=== PATIENT | female | born 1955 | race Caucasian/White ===

== ENCOUNTER 2024-04-22 06:44 | Outpatient (CLI) | payer MEDICARE, SELFPAY ==
--- NOTE | ~2024-04-22 | CT_ITS ---
Non-contrast CT scan of the Abdomen and Pelvis Clinical indication: Umbilical hernia Technique: 2.5 mm axial scans were obtained through the abdomen and pelvis without intravenous or or al contrast. Dose reduction technique was used on this scan by utilizing automated exposure control a nd iterative reconstruction technique. The dose-length product (DLP) was 824.38 mGy-cm. Findings: Images through the lung bases reveal no abnormalities. There is no evidence of renal or ureteral calculi. The kidneys and the ureters are nondilated. The liver, spleen, pancreas, gallbladder, and adrenals appear normal. There are atherosclerotic calci fications of the aorta. There is no evidence of bowel obstruction. There is evidence of prior bariatric surgery. Images through the pelvis were performed. There is no evidence of ascites or lymphadenopathy. Urinary bladder unremarkable. No pelvic mass evident. Impression: No significant abnormality seen. No umbilical hernia identified. Reviewed, dictated and finalized at [facility]. Impression: No significant abnormality seen. No umbilical hernia identified.
== END 2024-04-22 06:45 | disposition home or self-care (01) ==
PROVIDERS: Visit Provider Surgery Plastic and Reconstructive Surgery
DX: K42.9 Umbilical hernia without obstruction or gangrene (principal)
CPT/HCPCS: 74176

== ENCOUNTER 2024-04-28 08:42 | Outpatient (CLI) | payer OTHER, SELFPAY ==
--- NOTE | 2024-04-28 08:49 | ECG_ITS ---
Test Date: 2024-04-28 09:08:41 Measurements Intervals [place] Rate: 50 P: -3 [place]: 148 QRS: -27 QRSD: 93 T: 5 QT: 421 QTc: 384 Interpretive Statements SINUS BRADYCARDIA VOLTAGE CRITERIA FOR LVH BORDERLINE T WAVE ABNORMALITY- ANT/INF LEADS BASELINE ARTIFACT- I, II, III, AVR, AVL BORDERLINE ECG No previous ECG available for comparison Electronically Signed On 04-28-2024 10:24:29 CDT by Arnulfo Hurtado D.O.
[2024-04-28 09:42] LABS: Hematocrit 42.3 % (37.0-47.0); Hemoglobin 13.3 g/dL (12.0-15.0)
[2024-04-28 09:52] LABS: Potassium 4.1 mmol/L (3.4-5.0)
[2024-04-28 10:22] LABS: Anion Gap 10 mmol/L (4-12); Blood Urea Nitrogen 13 mg/dL (7-17); Calcium 8.9 mg/dL (8.4-10.2); Carbon Dioxide 29 mmol/L (22-30); Chloride 95 mmol/L (98-107); Estimated Glomerular Filt Rate > 60; Glucose 133 mg/dL (65-110); Sodium 134 mmol/L (137-145)
== END 2024-04-28 08:43 | disposition home or self-care (01) ==
LOC: ANHSURGERY 08:46
PROVIDERS: Anesthesiology; Visit Provider Surgery Plastic and Reconstructive Surgery
DX: L57.4 Cutis laxa senilis (principal); E11.9 Type 2 diabetes mellitus without complications; Z01.818 Encounter for other preprocedural examination; R94.31 Abnormal electrocardiogram [ECG] [EKG]
CPT/HCPCS: 36415; 80048; 85014; 85018; 93005

== ENCOUNTER 2024-05-04 00:49 | Day surgery (SDC) | payer OTHER, SELFPAY ==
[2024-04-27 13:06] VITALS: BMI 29.0
--- NOTE | 2024-04-27 13:49 | PC.NURSE ---
Report to the Outpatient Waiting Room, entrance under the green pavilion located off [facility], at time _6:00AM_ on date _05/04/24_. Planned Procedure Time: _7:30AM_.? Time changes happen often and if your time is changed the preop area will call you the afternoon before. - You and your visitor will be asked to self-screen and do not enter if you have any COVID symptoms. Please call surgeon if you need to reschedule. - A mask is optional within the hospital at this time. Patients may have clear liquids (water, carbonated beverages, clear teas, apple juice) until 3 hours prior to surgery with a maximum of 20 ounces. - No food from midnight until time of surgery and no smoking. Take only the following medications with a SIP of water on the morning of surgery: DILTIAZEM & PAROXETINE DO NOT STOP ANY OF YOUR OTHER PRESCRIPTION MEDICATIONS PRIOR TO SURGERY EXCEPT THE FOLLOWING Medications to discontinue per physician ___HOLD ALL VITAMINS/SUPPLEMENTS 7 DAYS PRE-OP PER DR RAJAN- LAST DOSE --04/27/24. HOLD XERALTO PER DR RAJAN- PATIENT CALLING MD OFFICE TODAY TO CONFIRM DATE.____ Please no make-up, nail romanian, hairspray, perfume, deodorant, or body powder the day of surgery.? No jewelry (including any body piercings) or valuables the day of surgery, leave them at home.? Please take a shower or bath the night before, or the morning of, surgery with an antibacterial soap.? Wear comfortable, loose fitting clothing.? - Jewelry must be removed prior to entering the operating room.? Rings and piercings that are not removed may be cut off. - The hospital will not accept responsibility for valuables.? - Please leave all valuables, including medications, at home the day of surgery. If you are going home after surgery, a licensed regional company flatbed truck driver must drive you home.? - NO public transportation without another adult if you receive anesthesia. - We recommend that an adult stay with you for 24 hours following discharge. - We also recommend that you do not drive, make important decision, drink alcoholic beverages, or take any drugs that were not prescribed by your health care provider for at least 24 hours after your discharge time. Follow any additional instructions given to you from your surgeon. Telephone instructions given to PATIENT and asked if any additional questions and then verbalized understanding. Patient advised to call surgeon office or pre surgery nurse liaison [phone] if any additional questions.
[2024-05-04] VITALS (14 sets, daily range): BP systolic 141–161; BP diastolic 68–85; PULSE 60–89; RESP 14–20; TEMP 36.5–37.1; O2SAT 94–99
--- NOTE | ~2024-05-04 | CT_ITS ---
EXAMINATION: CT brain wo con DATE: 05/05/2024 18:13 INDICATION: dysarthria, ataxia RUE . TECHNIQUE: Computed tomography (CT) of the head was performed without intravenous contrast. The mA wa s adjusted according to patient size. Iterative reconstruction technique was employed. The dose-lengt h product was 908.00 mGy-cm. COMPARISON: None. FINDINGS: No acute intracranial hemorrhage or extra-axial fluid collection. No hydrocephalus, mass, or herniation. No acute ischemic infarct. Unremarkable dural venous sinus attenuation. No acute osseous abnormality. Left mastoid fluid, the remaining aerated spaces are clear. Mild atrophy. Old left basal ganglia lacunar infarct. Atherosclerotic intracranial calcification. IMPRESSION: No acute intracranial process. Reviewed, dictated and finalized at location K.
[2024-05-04] MEDS: LACTATED RINGERS 1,000 ML 30 ML IV CONT ×2 (07:00→15:40)
[2024-05-04 07:34] LABS: Urine Cotinine NEGATIVE
[2024-05-04 07:50] LABS: Glucose Point of Care 157 mg/dl (65-105)
--- NOTE | 2024-05-04 08:45 | WPDHPUPDATE1 ---
History and Physical Update Update Date/Time: 05/04/24 08:45 History and Physical has been reviewed, including an updated exam of the patient. There are NO changes in the patient's condition. Risks, benefits, and alternatives have been discussed and questions answered. Patient agrees to proceed with procedure.
--- NOTE | 2024-05-04 08:50 | W.PM.PROC2 ---
Procedure Note - Detailed Date of Procedure 05/04/24 Pre-op Diagnosis skin laxity Post-op Diagnosis Same Procedure Performed Lgwee-og-kcc abdominoplasty with belt lipectomy and suction lipectomy Surgeon Bridger Payton MD Anesthesia General Findings Tissue removed: 3167.1 grams Lipoaspirate: 4,000 Description of Procedure They are here today for the above procedures. Previously and again today the risks, benefits, alternatives were discussed in extensive detail. I wanted them to be very realistic about the risks involved as well as expectations. We discussed aftercare and what to monitor for. I was very upfront about the risks of wound breakdown leading to loss of skin, open wounds, and need for additional procedures with permanent abdominal deformity. We discussed DVT/PE risks and management. Made sure answered all of their questions to their satisfaction today and consent was obtained. They were marked in the preoperative holding area with their verification. The patient was taken to the operating room. Anesthesia was provided by anesthesiology. A Cruz catheter was started. Placed prone on the operating room table with care taken to protect from injury. Prepped and draped in a standard sterile fashion. A surgical time-out was taken. Stab incisions were made and tumescent solution was infiltrated. Once adequate time was allowed for hemostasis a 5mm basket and 4mm multi hole cannula were utilized to complete suction lipectomy based on S.A.F.E. technique in multiple planes and passes. Suction lipectomy continued to result based on pre-operative planning, intra-operative observation, and rolling pinch test which were in full agreement. A 10 blade was used to make the upper incision and dissection was continued inferior elevating what we necessary for closure. I placed patient in slight jackknife position and excised intervening tissue. This was closed with 3 point suture with 2-0 Vicryl followed 2-0 PDO strattafix, 3-0 stratafix ,running subcuticular 4-0 Monocryl, and tissue glue. Laterally dejan were placed for turning. Patient was then placed supine with care taken to protect from injury. I placed the patient in a flexed position to verify the upper and lower markings would reach. I then placed supine. A thorough abdominal examination was completed. Stab incisions were made and tumescent solution infiltrated. Stab incisions were made and tumescent solution was infiltrated. Once adequate time was allowed for hemostasis a 5mm basket and 4mm multi hole cannula were utilized to complete suction lipectomy based on S.A.F.E. technique in multiple planes and passes. Suction lipectomy continued to result based on pre-operative planning, intra-operative observation, and rolling pinch test which were in full agreement. A 10 blade was used to make the upper incision and vertical. I continued dissection down to the level of fascia. Elevated just what was necessary for repair of the diastasis. I then again flexed the bed to verify the upper skin flap would reach the lower markings without tension. Once verified I placed her supine once again and a 10 blade used to make the lower incision. I elevated up to level the umbilicus and left the umbilicus intact on a well-vascularized stalk. The intervening tissue was removed. A 2 mm blunt cannula with 0.5% bupivacaine was injected deep to the fascia bilaterally. I plicated the diastasis recti using 0 PDO Stratafix barbed suture. This was in 2 separate layers using 2 separate sutures as well. I also repaired lateral to the rectus using two layers of 2-0 PDS. After the patient was flexed (below) plicated the fascia with 0 PDO Stratafix in two separate layers. The patient was flexed and starting from superior to inferior began plication using 2-0 Vicryl to obliterate all space in a standard progressive tension fashion. At the umbilicus I marked out the location of the skin and ins
--- NOTE | 2024-05-04 08:54 | WPDANESEPPF ---
Anes - Initial Pre Proc Eval Procedure: Operation Date: 05/04/24 09:00 Proposed Procedures p Abdominoplasty with Nicolasa De Lis - Bridger Payton MD s Belt Lipectomy - Bridger Payton MD Date/Time: 05/04/24 08:54 Surgeon: Bridger Payton MD Pre Op Diagnosis: skin laxity Patient Data Age: 69 Gender: F Height: 1.65 m Weight: 82.4 kg Last Vital Signs Temp 98.6 F 05/04/24 08:06 Pulse 60 05/04/24 08:06 Resp 16 05/04/24 08:06 BP 141/74 H 05/04/24 08:06 Pulse Ox 99 05/04/24 08:06 O2 Del Method Room Air 05/04/24 08:06 Allergies Allergy/AdvReac Type Severity Reaction Status Date / Time metformin AdvReac NAUSEA, Verified 05/04/24 08:04 DIARRHEA Home Medications Medication Instructions Recorded Confirmed Type Joint Genosis 1 tab-cap PO DAILY 04/27/24 04/27/24 History atorvastatin 40 mg tablet 40 mg PO HS 04/27/24 04/27/24 History cyanocobalamin (vitamin B-12) 1,000 mcg PO DAILY 04/27/24 04/27/24 History 1,000 mcg capsule diltiazem HCl 120 mg 120 mg PO QAM 04/27/24 05/04/24 History capsule,extended release 24 hr ergocalciferol (vitamin D2) 1,250 50,000 unit PO WEEKLY 04/27/24 04/27/24 History mcg (50,000 unit) capsule hydroxychloroquine 200 mg tablet 200 mg PO DAILY 04/27/24 04/27/24 History insulin glargine 100 unit/mL (3 10 unit subcut QAM 04/27/24 04/27/24 History mL) subcutaneous pen (Lantus Solostar U-100 Insulin) losartan 50 mg tablet 50 mg PO QAM 04/27/24 04/27/24 History paroxetine HCl 20 mg tablet 20 mg PO QAM 04/27/24 05/04/24 History rivaroxaban 20 mg tablet (Xarelto) 20 mg PO HS 04/27/24 05/04/24 History semaglutide 0.25 mg or 0.5 mg (2 0.25 mg subcut WEEKLY 04/27/24 04/27/24 History mg/3 mL) subcutaneous pen injector (Ozempic) Laboratory Tests 05/04/24 05/04/24 07:17 07:47 POC Capillary Glucose 157 H mg/dl (65-105) Cotinine Negative Patient hx anesthesia problems: none Family hx anesthesia problems: none Results Review: All pre-operative results and documents have been reviewed as part of the pre-operative evaluation. [facility] Family History Family History (Updated 03/08/16 @ 23:19 by DOCTOR UNKNOWN) Sibling Family history of diabetes mellitus in first degree relative Mother Family history of heart disease in male family member before age 55 Social History Social History Smoking status: Never smoker Alcohol intake: never Living arrangements: with family Additional living arrangements comments: [facility] Spiritual care concerns: No Anes - Eval Final PreProcedure Day of Procedure 05/04/24 08:54 Patient weight: obese Heart: regular rate and rhythm Lungs: clear to auscultation Airway: Mallampati scale class II Neurological: alert and oriented Last oral intake: >/= 8 hours ASA classification: III Emergent: no Anesthetic plan: proceed Anesthesia type and monitoring: general ETT and standard monitoring Results Review: All pre-operative results and documents have been reviewed as part of the pre-operative evaluation. Informed Consent: The patient's anesthetic plan and its attendant risks and benefits were discussed with the patient/family/POA. Questions were solicited and answers provided to the satisfaction of the patient/family/POA.
[2024-05-04] MEDS: SCOPOLAMINE 1 MG PATCH 1 PATCH TRANSDERM (09:11)
[2024-05-04] MEDS: ceFAZolin 2 GM/D5W 50 ML 2 GM/50 ML BAG IVPB (09:14)
[2024-05-04] MEDS: TRANEXAMIC ACID 1,000MG/ISO100 1,000 MG/100 ML BAG 200 MG IVPB (09:14)
[2024-05-04] MEDS: LACTATED RINGERS IRRIG 1,000 ML, LIDOCAINE HCL 1% LOCAL INJ 50 ML, EPINEPHrine HCL INJ ... INFILTRATE (09:40)
[2024-05-04] MEDS: ceFAZolin SODIUM 1 GM VIAL 2 GM IV PUSH (12:30)
[2024-05-04] MEDS: BUPIVACAINE/EPINEPHRINE 0.5% 10 ML VIAL 60 ML INFILTRATE (12:52)
[2024-05-04] MEDS: INSULIN HUMAN REGULAR (*BKC) 100 UNITS/ML 6 UNITS SUB-Q (16:10)
[2024-05-04 16:18] LABS: Glucose Point of Care 295 mg/dl (65-105)
--- NOTE | 2024-05-04 17:50 | ADMGEN ---
This patient, Melissa Reyez, was admitted to 2 Medical Room 253-01. Patient/family oriented to hospital policies and general routines including ID bracelet, bed and alarms, visiting hours, pain management, procedures, bathroom and other care routines, personal items, smoking policy, room service/diet, and visiting hours. Information on how to activate the Rapid Response Team has been discussed. Patient/Family are encouraged to report perceived risks to care and to ask questions if they do not understand what they are told or what they should do.
[2024-05-04] MEDS: LACTATED RINGERS 1,000 ML 125 ML IV CONT (18:22)
[2024-05-04] MEDS: KETOROLAC 10 MG TABLET PO ×2 (18:41→23:11)
[2024-05-04] MEDS: carisoprodoL (*CRX) 350 MG TABLET PO ×2 (18:42→23:11)
[2024-05-04] MEDS: oxyCODONE/ACETAMINOPHEN (*CRX) 5-325 MG TABLET PO (20:37)
[2024-05-04] MEDS: DOCUSATE SODIUM 100 MG CAPSULE PO (20:38)
[2024-05-04] MEDS: RIVAROXABAN 20 MG TABLET PO (20:38)
[2024-05-04] MEDS: ATORVASTATIN 40 MG TABLET PO (20:38)
[2024-05-04 20:46] LABS: Glucose Point of Care 245 mg/dl (65-105)
[2024-05-05] VITALS (8 sets, daily range): BP systolic 90–134; BP diastolic 45–63; PULSE 79–83; RESP 12–20; TEMP 36.6–37; O2SAT 92–97
[2024-05-05] MEDS: LACTATED RINGERS 1,000 ML 125 ML IV CONT ×3 (02:10→23:04)
--- NOTE | 2024-05-05 04:17 | WPDPN ---
Progress Note: A&P Assessment and Plan (1) Localized adiposity: Code(s): E65 - Localized adiposity Status: Acute Assessment and Plan: Doing well after progressive tension abdominoplasty (mhykd-rl-nbg / belt lipectomy) with suction lipectomy. Will discharge home. Today we had a lengthy discussion about the care. Activity limitations. What to monitor for. What is an emergency and when to dial 911 / proceed to the ER. This was a lengthy open ended conversation making sure they were well informed. Answered all their questions. They voiced a clear understanding. Will discharge home. Call with any questions or concerns in the meantime. (2) Skin laxity: Code(s): L57.4 - Cutis laxa senilis Status: Acute Subjective Date/time seen: 05/05/24 04:17 Interval history: Doing well after progressive tension abdominoplasty (uksgr-dq-fvy / belt lipectomy) with suction lipectomy. Has been out of bed to [facility]. Pain well controlled. No nausea / vomiting. No fevers / chills. No shortness of breast. No chest pain. No calf tenderness. Review of Systems Review of Systems: All systems reviewed & are unremarkable except as noted in HPI and below Exam Narrative: Alert & Oriented NOD Respiratory unlabored Abdomen is healing well. No signs of infection. No hematoma. No seroma. Good color and capillary refill. No calf tenderness. Negative Stone's Objective Data Vital Signs Vital Signs: Vital Signs - 24 hr 05/04/24 08:06 05/04/24 15:40 05/04/24 15:55 Temperature 37.0 C 37.1 C Pulse Rate 60 89 83 Respiratory Rate 16 14 14 Blood Pressure 141/74 H 161/82 H 151/82 H Pulse Oximetry 99 94 98 Oxygen Delivery Room Air Simple Face Mask Simple Face Mask Oxygen Flow Rate 10 10 05/04/24 16:10 05/04/24 16:25 05/04/24 16:40 Temperature Pulse Rate 86 84 86 Respiratory Rate 16 16 16 Blood Pressure 160/82 H 142/85 H 142/80 H Pulse Oximetry 98 94 94 Oxygen Delivery Room Air Nasal Cannula Nasal Cannula Oxygen Flow Rate 2 2 05/04/24 16:55 05/04/24 17:10 05/04/24 17:25 Temperature 36.6 C Pulse Rate 88 83 83 Respiratory Rate 16 16 16 Blood Pressure 141/78 H 141/72 H 141/74 H Pulse Oximetry 94 98 98 Oxygen Delivery Nasal Cannula Nasal Cannula Nasal Cannula Oxygen Flow Rate 2 2 2 05/04/24 18:01 05/04/24 18:05 05/04/24 18:43 Temperature 36.6 C 36.6 C 36.5 C Pulse Rate 82 80 77 Respiratory Rate 15 16 16 Blood Pressure 153/75 H 142/74 H 151/71 H Pulse Oximetry 94 96 98 Oxygen Delivery Oxygen Flow Rate 05/04/24 20:25 05/04/24 20:00 05/05/24 02:37 Temperature 36.5 C Pulse Rate 74 Respiratory Rate 20 Blood Pressure 141/68 H Pulse Oximetry 97 97 97 Oxygen Delivery Nasal Cannula Room Air Oxygen Flow Rate 2 Intake/Output Intake/Output: Intake & Output 05/02/24 05/03/24 05/04/24 05/05/24 23:59 23:59 23:59 23:59 Intake Total 1300 975 Output Total 450 700 Balance 850 275 Meds/Results Medications: Active Medications Generic Name Dose Route Start Last Admin Trade Name Freq PRN Reason Stop Dose Admin Atorvastatin Calcium 40 mg 05/04/24 21:00 05/04/24 20:38 Atorvastatin 40 Mg Tablet PO 40 mg HS RIGO Administration Carisoprodol 350 mg 05/04/24 18:00 05/04/24 23:11 Carisoprodol (*Crx) 350 Mg Tablet PO 350 mg Q6HR RIGO Administration Cyanocobalamin 1,000 mcg 05/05/24 09:00 Cyanocobalamin 1,000 Mcg Tablet PO DAILY RIGO Dextrose 12.5 gm 05/04/24 17:38 Dextrose 50% 25 Gm/50 Ml Syringe IV PUSH PRN PRN Hypoglycemia Protocol Diazepam 5 mg 05/04/24 17:38 Diazepam (*Crx) 5 Mg Tablet PO TID PRN Anxiety Diltiazem HCl 120 mg 05/05/24 09:00 Diltiazem Hcl Cd 120 Mg Cap.24hr PO QAM RIGO Docusate Sodium 100 mg 05/04/24 21:00 05/04/24 20:38 Docusate Sodium 100 Mg Capsule PO 100 mg Q12HR RIGO Administration Ergocalciferol 50,000 units 05/11/24 09:00 Erg
--- NOTE | 2024-05-05 04:19 | PM.DS ---
DS: Admitting Diagnosis Discharge Date 05/05/2024 Admitting Diagnosis Skin laxity Localized Adiposity DS: Discharge Diagnosis Discharge Diagnosis (1) Skin laxity: Code(s): L57.4 - Cutis laxa senilis Status: Acute (2) Localized adiposity: Code(s): E65 - Localized adiposity Status: Acute DS: Summary Hospital Course Hospital Course: Doing very well after progressive tension abdominoplasty (erxiw-xg-sfo / belt lipectomy) with suction lipectomy . Ambulating to commode only so far. Tolerating PO. Pain controlled. Will d/c home later today. Remove drain and dressins at that tome. She is on Xarelto. Time Spent with Patient Time attestation: Total time spent providing and/or coordinating discharge services: Exam Narrative: Alert & Oriented NOD Respiratory unlabored Abdomen is healing well. No signs of infection. No hematoma. No seroma. Good color and capillary refill. No calf tenderness. Negative Stone's DS: Data Data Completed and Pending Labs on day of discharge: Labs from last 24 hours 05/04/24 05/04/24 05/04/24 20:40 16:00 07:47 POC Capillary Glucose 245 H 295 H 157 H Cotinine 05/04/24 07:17 POC Capillary Glucose Cotinine Negative Discharge Plan Discharge Patient Disposition: Home, Self-Care Discharge Instructions: POST OPERATIVE DISCHARGE INSTRUCTIONS BRIDGER PAYTON M.D. [facility] [address] [place] [address] [address] for 24 hours after anesthesia and while you are taking pain medication. Take all prescribed medication as directed Diet as tolerated. No lifting or activity that raises blood pressure for 48 hours. Regular walking / ambulation. May shower 24 hours after surgery. Once you shower do not take pain medication before showering as the combination of medication and heat may cause you to feel dizzy or pass out. No pools or tubs for 2 weeks. Slowly stand up straight as tolerated. No straining or lifting more than 20 pounds. If no bowel movement within 24 hours may use laxative. Call with any questions or concerns. Dressing Care: Continue abdominal binder / foam 23 hours per day. Adjust tightness to comfort. Remove the Scopolamine patch that was placed behind your ear in 72 hours or less. Wash your hands after touching. If you have any questions or concerns, please call the office . If it is after hours you will be directed to the weapons and tactics instructor exchange. Shortness of breath, chest pain, or other medical emergency dial 911 / proceed to the Emergency Room. Patient Instructions: Safe Use of Anticoagulants (GEN) Stand Alone Forms: General Discharge Instructions Follow-up/Referrals: Bridger Payton MD [Physician] - 1 Week Discharge Medications: Continued losartan 50 mg tablet 50 mg PO QAM paroxetine HCl 20 mg tablet 20 mg PO QAM diltiazem HCl 120 mg capsule,extended release 24hr 120 mg PO QAM ergocalciferol (vitamin D2) 1,250 mcg (50,000 unit) capsule 50,000 unit PO WEEKLY hydroxychloroquine 200 mg tablet 200 mg PO DAILY insulin glargine [Lantus Solostar U-100 Insulin] 100 unit/mL (3 mL) insulin pen 10 unit SUBCUT QAM Xarelto 20 mg tablet 20 mg PO HS cyanocobalamin (vitamin B-12) 1,000 mcg Capsule 1,000 mcg PO DAILY Ozempic 0.25 mg or 0.5 mg (2 mg/3 mL) pen injector 0.25 mg SUBCUT WEEKLY Patient Comments: HOLD PRIOR TO SURGERY-LAST ~03/30/24 atorvastatin 40 mg tablet 40 mg PO HS Joint Genosis 1 tab-cap PO DAILY
--- NOTE | 2024-05-05 04:19 | P.DS_ITS ---
DS: Admitting Diagnosis Discharge Date 05/05/2024 Admitting Diagnosis Skin laxity Localized Adiposity DS: Discharge Diagnosis Discharge Diagnosis (1) Skin laxity: Code(s): L57.4 - Cutis laxa senilis Status: Acute (2) Localized adiposity: Code(s): E65 - Localized adiposity Status: Acute DS: Summary Hospital Course Hospital Course: Doing very well after progressive tension abdominoplasty (oqomo-dd-wzt / belt lipectomy) with suction lipectomy . Ambulating to commode only so far. Tolerating PO. Pain controlled. Will d/c home later today. Remove drain and dressins at that tome. She is on Xarelto. Time Spent with Patient Time attestation: Total time spent providing and/or coordinating discharge services: Exam Narrative: Alert & Oriented NOD Respiratory unlabored Abdomen is healing well. No signs of infection. No hematoma. No seroma. Good color and capillary refill. No calf tenderness. Negative Stone's DS: Data Data Completed and Pending Labs on day of discharge: Labs from last 24 hours 05/04/24 05/04/24 05/04/24 20:40 16:00 07:47 POC Capillary Glucose 245 H 295 H 157 H Cotinine 05/04/24 07:17 POC Capillary Glucose Cotinine Negative Discharge Plan Discharge Patient Disposition: Home, Self-Care Discharge Instructions: POST OPERATIVE DISCHARGE INSTRUCTIONS BRIDGER PAYTON M.D. [facility] [address] [place] [address] * No driving for 24 hours after anesthesia and while you are taking pain medication. * Take all prescribed medication as directed * Diet as tolerated. * No lifting or activity that raises blood pressure for 48 hours. * Regular walking / ambulation. * May shower 24 hours after surgery. Once you shower do not take pain medi cation before showering as the combination of medication and heat may cause you to feel dizzy or pass out. * No pools or tubs for 2 weeks. * Slowly stand up straight as tolerated. * No straining or lifting more than 20 pounds. * If no bowel movement within 24 hours may use laxative. * Call with any questions or concerns. * Dressing Care: Continue abdominal binder / foam 23 hours per day. Adjust tightness to comfort. * Remove the Scopolamine patch that was placed behind your ear in 72 hours or less. Wash your hands after touching. If you have any questions or concerns, please call the office . If it is after hours you will be directed to the dish up person exchange. Shortness of breath, chest pain, or other medical emergency dial 911 / proceed to the Emergency Room. Patient Instructions: Safe Use of Anticoagulants (GEN) Stand Alone Forms: General Discharge Instructions Follow-up/Referrals: Bridger Payton MD [Physician] - 1 Week Discharge Medications: Continued losartan 50 mg tablet 50 mg PO QAM paroxetine HCl 20 mg tablet 20 mg PO QAM diltiazem HCl 120 mg capsule,extended release 24hr 120 mg PO QAM ergocalciferol (vitamin D2) 1,250 mcg (50,000 unit) capsule 50,000 unit PO WEEKLY hydroxychloroquine 200 mg tablet 200 mg PO DAILY insulin glargine [Lantus Solosta
[2024-05-05] MEDS: KETOROLAC 10 MG TABLET PO ×4 (06:00→23:01)
[2024-05-05] MEDS: carisoprodoL (*CRX) 350 MG TABLET PO ×2 (06:00→12:27)
[2024-05-05 08:37] LABS: Glucose Point of Care 264 mg/dl (65-105)
[2024-05-05] MEDS: HYDROXYCHLOROQUINE SULFATE 200 MG TABLET PO (08:37)
[2024-05-05] MEDS: dilTIAZem HCL CD 120 MG CAP.24HR PO (08:37)
[2024-05-05] MEDS: LOSARTAN POTASSIUM 50 MG TABLET PO (08:37)
[2024-05-05] MEDS: CYANOCOBALAMIN 1,000 MCG TABLET 1000 MCG PO (08:37)
[2024-05-05] MEDS: DOCUSATE SODIUM 100 MG CAPSULE PO ×2 (08:37→20:43)
[2024-05-05] MEDS: oxyCODONE/ACETAMINOPHEN (*CRX) 5-325 MG TABLET PO (08:38)
[2024-05-05] MEDS: PARoxetine 20 MG TABLET PO (08:38)
[2024-05-05] MEDS: INSULIN GLARGINE (*BKC) 100 UNITS/ML 10 UNITS SUB-Q (08:39)
[2024-05-05] MEDS: INSULIN ASPART (*BKC) 100 UNITS/ML SUB-Q ×3 (10:09→17:51)
--- NOTE | 2024-05-05 11:04 | PC.NURSE ---
Called Dr. Rojas with concerns of leakage of blood around the DYLON. Informed that she had an output of 900ml on production supervisor off shift. He stated that it's common to have some drainage during post surgery. Gave the ok to remove the drain and discharge. No further orders at this time.
[2024-05-05 12:03] LABS: Glucose Point of Care 269 mg/dl (65-105)
[2024-05-05 14:35] LABS: Hematocrit 33.2 % (37.0-47.0); Hemoglobin 10.5 g/dL (12.0-15.0); Mean Corpuscular HGB Conc 31.6 g/dl (32-36); Mean Corpuscular Hemoglobin 30.9 pg (26-34); Mean Corpuscular Volume 97.6 fl (80-100); Platelet Count Result 214 k/mm3 (150-375); Red Cell Distribution Width 13.1 % (11.5-14.5); White Blood Count 8.7 K/mm3 (4.5-10.0)
[2024-05-05 14:43] LABS: Alanine Aminotransferase 38 U/L (6-35); Albumin Level 3.2 g/dL (3.5-5.1); Alkaline Phosphatase 69 U/L (38-126); Anion Gap 5 mmol/L (4-12); Aspartate Amino Transferase 51 U/L (14-36); Blood Urea Nitrogen 21 mg/dL (7-17); Calcium 8.3 mg/dL (8.4-10.2); Carbon Dioxide 25 mmol/L (22-30); Chloride 98 mmol/L (98-107); Estimated CRCL calculation 45 ml/min; Estimated Glomerular Filt Rate 49; Glucose 228 mg/dL (65-110); Potassium 4.6 mmol/L (3.4-5.0); Sodium 128 mmol/L (137-145)
--- NOTE | 2024-05-05 14:49 | PM.IMCN ---
Assessment and Plan Assessment and plan (1) Altered mental status: Code(s): R41.82 - Altered mental status, unspecified Status: Acute Assessment and Plan: - postop day 1 from abdominal plasty and suction lipectomy - Na 128, when corrected for hyperglycemia Na 130 - add UA and viral PCR - no leukocytosis, moderate reduction in hemoglobin postoperatively 13.3 -> 10.5 (monitor) - head CT non con ordered - reviewed medication administrations, last night narcotic given at 8:30 a.m. this morning (oxycodone/acetaminophen, 2 tablets) - will hold opiates/benzos (Coloma, morphine, Valium) and Soma - continue IV fluids and monitor I&Os. - utilized CAM assessment and screened + for delirium, suspect this is most likely etiology. However, cannot exclude CVA given dysarthria on exam (2) Skin laxity: Code(s): L57.4 - Cutis laxa senilis Status: Acute Assessment and Plan: - aseln-dp-yif abdominoplasty with belt lipectomy and suction lipectomy on 05/04/2024. - primary management through plastic surgery team (3) Diabetes: Qualifiers: Diabetes mellitus complication status: without complication Diabetes mellitus group home insulin use: with group home use Diabetes mellitus type: type 2 Qualified Code(s): E11.9 - Type 2 diabetes mellitus without complications; Z79.4 - custodial (current) use of insulin Code(s): E11.9 - Type 2 diabetes mellitus without complications Status: Chronic Assessment and Plan: - hypoglycemia protocol - POC blood glucose ACHS - home medication: continue glargine 10 units q.a.m. Hold Ozempic (NF). - correct regimen ordered - low dose TIDWM (4) HTN (hypertension): Qualifiers: Hypertension type: primary hypertension Qualified Code(s): I10 - Essential (primary) hypertension Code(s): I10 - Essential (primary) hypertension Status: Chronic Assessment and Plan: - chronic, currently 100/60 - continue home medications: Losartan 50 mg daily - monitor Plan Diet: Diabetic GI Prophylaxis: Not currently indicated DVT Prophylaxis: Xarelto HS, SCDs Lines: Peripheral Code Status: Full code HPI Date of Consult Consult date: 05/05/24 Requesting Physician: Bridger Payton MD Primary Care Provider: Ck Posadas Consult Narrative Reason for consult: Medical management Narrative: Melissa Reyez is a 69 year old female who underwent a efyfr-gv-eho abdominoplasty with belt lipectomy and suction lipectomy on 05/04/2024. Patient has a PMH of The patient is currently postop day 1 from an abdominal plasty and suction lipectomy. Patient was A&O x4 yesterday afternoon and during the plastic surgeons reassessment at 4:00 a.m. However, this morning prior to 7:00 a.m. it was noted that the patient was more somnolent and confused. Given alteration, the patient's family at the bedside provided majority of the current HPI. Her further describes the confusion as difficulty with recall and almost like she has dementia. He provided the following example: Patient asking when she would go down for surgery when she had surgery yesterday. During the exam, the patient would begin to discuss random topics such as the cost of an apartment and was difficult to understand. The patient is currently denying headache, dizziness, urinary symptoms, dizziness. However, the patient is currently unreliable. Preop VS: 98.6? F, HR 60, RR 16, 141/74, and 99% on RA. Preop workup: Hemoglobin 13.3, sodium 134, creatinine 0.5, glucose 133. Review of Systems Review of Systems: ROS unobtainable: Yes unobtainable due to mental status (Unreliable, A&O x1) [facility] Past Medical History Medical History Anxiety and depression Arthritis Atrial fibrillation Diabetes Graves' disease HLD (hyperlipidemia) HTN (hypertension) Osteoporosis Postoperative nausea and vomiting Rhe
[2024-05-05 15:01] LABS: Band Neutrophils Percent 12 % (0-6); Monocytes Absolute Manual 0.95 K/mm3 (0.1-0.90); Monocytes Percent Manual 11 % (3-9); Neutrophils Absolute Manual 6.43 K/mm3 (1.7-7.2); Neutrophils Percent Manual 62 % (46-73); Platelet Estimate Adequate (Adequate); Total Cells Counted 100
[2024-05-05 15:02] LABS: Hypochromasia 1+; Schistocytes None Seen
[2024-05-05 17:07] LABS: Glucose Point of Care 244 mg/dl (65-105)
--- NOTE | 2024-05-05 17:15 | PC.NURSE ---
05/05/[address] Payton in regards to change in mental status. Informed that patient is oriented X2, having difficulty having appropriate conversations with myself and her . states that she hasn't had any issues in the past with pain medications from previous surgeries. Suggested consult to hospitalist group for medical management. Dr. Payton okayed for hospitalist consult.
[2024-05-05 19:08] LABS: Influenza A QL RT-PCR Negative (Negative); Influenza B QL RT-PCR Negative (Negative); RSV RNA, RT-PCR Negative (Negative); SARS-CoV-2 RNA PCR Negative (Negative)
[2024-05-05] MEDS: ATORVASTATIN 40 MG TABLET PO (20:43)
[2024-05-05] MEDS: RIVAROXABAN 20 MG TABLET PO (20:43)
[2024-05-06] MEDS: KETOROLAC 10 MG TABLET PO (05:18)
[2024-05-06 05:23] VITALS: BP 111/52; PULSE 91; RESP 17; TEMP 36.6; O2SAT 93
[2024-05-06 05:41] LABS: Add Urine Microscopic? YES; Appearance Urine Clear (Clear); Bacteria Urine None Seen /hpf; Bilirubin Urine Negative (Negative); Blood Urine 2+ (Negative); Color Urine Yellow (Yellow); Glucose Urine UA 2+ mg/dL (Negative); Ketones Urine 1+ mg/dL (Negative); Leukocyte Esterase Ur Negative LEU/UL (Negative); Need Manual Microscopic Reviewed; Nitrate Urine Negative (Negative); Protein Urine Trace mg/dL (Negative); Specific Grav Ur 1.018 (1.001-1.035); Squamous Epithelial Cell Urine None Seen /hpf (Few); Urobilinogen Urine 0.2 mg/dL (<2.0); WBC Urine 0-5 /hpf (0-3); pH Urine 5.5 (5.0-9.0)
[2024-05-06 06:01] LABS: Basophils Percent Auto 0.1 % (0.2-1.2); Hemoglobin 9.9 g/dL (12.0-15.0); Immature Granulocyte Absolute 0.01 K/mm3 (0.00-0.031); Immature Granulocyte Percent A 0.1 % (0-0.5); Lymphocytes Percent Auto 10.8 % (18.3-44.2); Mean Corpuscular HGB Conc 31.9 g/dl (32-36); Mean Corpuscular Hemoglobin 31.2 pg (26-34); Mean Corpuscular Volume 97.8 fl (80-100); Mean Platelet Volume 11.7 fl (7.4-10.4); Monocytes Absolute Auto 0.8 K/mm3 (0.1-0.6); Monocytes Percent Auto 10.8 % (2.6-8.5); Neutrophils Absolute Auto 5.8 K/mm3 (1.3-6.7); Neutrophils Percent Auto 78.2 % (45.5-73.1); Platelet Count Result 181 k/mm3 (150-375); Red Blood Count 3.17 M/mm3 (4.2-5.4); Red Cell Distribution Width 13.2 % (11.5-14.5); White Blood Count 7.4 K/mm3 (4.5-10.0)
[2024-05-06 06:10] LABS: Alanine Aminotransferase 112 U/L (6-35); Albumin Level 3.2 g/dL (3.5-5.1); Alkaline Phosphatase 77 U/L (38-126); Anion Gap 5 mmol/L (4-12); Aspartate Amino Transferase 167 U/L (14-36); Bilirubin,Total 0.8 mg/dL (0.2-1.3); Blood Urea Nitrogen 20 mg/dL (7-17); Calcium 8.3 mg/dL (8.4-10.2); Carbon Dioxide 27 mmol/L (22-30); Chloride 98 mmol/L (98-107); Estimated CRCL calculation 55 ml/min; Estimated Glomerular Filt Rate > 60; Glucose 205 mg/dL (65-110); Potassium 3.8 mmol/L (3.4-5.0); Sodium 130 mmol/L (137-145)
[2024-05-06] MEDS: LACTATED RINGERS 1,000 ML 125 ML IV CONT (07:37)
[2024-05-06] MEDS: DOCUSATE SODIUM 100 MG CAPSULE PO (09:03)
[2024-05-06] MEDS: HYDROXYCHLOROQUINE SULFATE 200 MG TABLET PO (09:03)
[2024-05-06] MEDS: CYANOCOBALAMIN 1,000 MCG TABLET 1000 MCG PO (09:04)
[2024-05-06] MEDS: dilTIAZem HCL CD 120 MG CAP.24HR PO (09:04)
[2024-05-06] MEDS: PARoxetine 20 MG TABLET PO (09:04)
[2024-05-06] MEDS: LOSARTAN POTASSIUM 50 MG TABLET PO (09:04)
[2024-05-06] MEDS: INSULIN ASPART (*BKC) 100 UNITS/ML SUB-Q (09:04)
[2024-05-06 09:05] LABS: Glucose Point of Care 238 mg/dl (65-105)
[2024-05-06] MEDS: INSULIN GLARGINE (*BKC) 100 UNITS/ML 10 UNITS SUB-Q (09:05)
--- NOTE | 2024-05-06 10:00 | PM.IMPN ---
Progress Note: A&P Assessment and Plan (1) Altered mental status: Code(s): R41.82 - Altered mental status, unspecified Status: Acute Assessment and Plan: - postop day 1 from abdominal plasty and suction lipectomy - Na 128, when corrected for hyperglycemia Na 130 - viral PCR negative - no leukocytosis, moderate reduction in hemoglobin postoperatively 13.3 -> 10.5> 9.9 (monitor) - head CT non con showed no acute intracranial process. - A&O x4 - discharge to home today, cleared by plastic surgery. (2) Skin laxity: Code(s): L57.4 - Cutis laxa senilis Status: Acute Assessment and Plan: - jaasu-tr-xer abdominoplasty with belt lipectomy and suction lipectomy on 05/04/2024. - primary management through plastic surgery team (3) Diabetes: Qualifiers: Diabetes mellitus complication status: without complication Diabetes mellitus retirement insulin use: with retirement use Diabetes mellitus type: type 2 Qualified Code(s): E11.9 - Type 2 diabetes mellitus without complications; Z79.4 - group home (current) use of insulin Code(s): E11.9 - Type 2 diabetes mellitus without complications Status: Chronic Assessment and Plan: - hypoglycemia protocol - POC blood glucose ACHS - home medication: continue glargine 10 units q.a.m. Hold Ozempic (NF). - correct regimen ordered - low dose TIDWM (4) HTN (hypertension): Qualifiers: Hypertension type: primary hypertension Qualified Code(s): I10 - Essential (primary) hypertension Code(s): I10 - Essential (primary) hypertension Status: Chronic Assessment and Plan: - chronic, currently 111/52 - continue home medications: Losartan 50 mg daily Plan Diet: Diabetic GI Prophylaxis: Not currently indicated DVT Prophylaxis: Xarelto HS, SCDs Lines: Peripheral Code Status: Full code Subjective Date/time seen: 05/06/24 10:00 Interval history: Patient ready to go home. Patient reports pain in her back that is a 5 , constant, and burning. Denies chest pain, palpitations, nausea, vomiting, headache, or dizziness. Review of Systems Review of Systems: All systems reviewed & are unremarkable except as noted in HPI and below Exam Const: General: comfortable and no acute distress Eyes: Sclera: sclerae normal Resp: Auscultation: clear to auscultation bilaterally Cardio: Rate: regular rate Rhythm: regular rhythm GI: GI Palp: Yes Soft to palpation Auscultation: normal bowel sounds Skin: Wounds: wounds noted (postoperative incision) Neuro: Speech: normal speech Motor exam (neuro): 5/5 motor strength present throughout Other: A&Ox4 Extrem: General: normal to inspection Psych: Affect: normal affect Objective Data Vital Signs Vital Signs: Vital Signs - 24 hr 05/05/24 11:38 05/05/24 12:05 05/05/24 13:40 Temperature 98.6 F Pulse Rate 83 Respiratory Rate 12 Blood Pressure 90/52 L 100/60 Pulse Oximetry 95 Oxygen Delivery 05/05/24 17:20 05/05/24 19:25 05/05/24 19:43 Temperature 97.9 F 98.4 F Pulse Rate 82 79 Respiratory Rate 16 18 Blood Pressure 91/45 L 110/62 105/55 L Pulse Oximetry 94 92 Oxygen Delivery 05/05/24 20:00 05/06/24 05:23 Temperature 97.9 F Pulse Rate 91 Respiratory Rate 17 Blood Pressure 111/52 L Pulse Oximetry 93 Oxygen Delivery Room Air Intake/Output Intake/Output: Intake & Output 05/03/24 05/04/24 05/05/24 05/06/24 23:59 23:59 23:59 23:59 Intake Total 1300 4235 1250 Output Total 450 1600 Balance 850 2635 1250 Meds/Results Medications: Active Medications Generic Name Dose Route Start Last Admin Trade Name Freq PRN Reason Stop Dose Admin Atorvastatin Calcium 40 mg 05/04/24 21:00 05/05/24 20:43 Atorvastatin 40 Mg Tablet PO 40 mg HS RIGO Administration Carisoprodol 350 mg 05/04/24 18:00 05/05/24 12:27 Carisoprodol (*Crx) 350 Mg Tablet PO 350 mg Q
== END 2024-05-06 10:35 | disposition home or self-care (01) ==
LOC: ANHSURGERY 09:42 → ANH2MED 17:40
PROVIDERS: Student in an Organized Health Care Education/Training Program; Visit Provider Surgery Plastic and Reconstructive Surgery
PROC: (CPT 15830; principal; 2024-05-04 09:00)
PROC: (CPT 15830; 2024-05-04 09:00)
DX: Z41.1 Encounter for cosmetic surgery (principal); L57.4 Cutis laxa senilis; R41.82 Altered mental status, unspecified; E11.9 Type 2 diabetes mellitus without complications; I10 Essential (primary) hypertension; E78.5 Hyperlipidemia, unspecified; I48.91 Unspecified atrial fibrillation; M06.9 Rheumatoid arthritis, unspecified; M81.0 Age-related osteoporosis without current pathological fracture; F41.8 Other specified anxiety disorders; E05.00 Thyrotoxicosis with diffuse goiter without thyrotoxic crisis or storm; Z98.84 Bariatric surgery status; Z79.4 Long term (current) use of insulin; Z79.85 Long-term (current) use of injectable non-insulin antidiabetic drugs; Z79.01 Long term (current) use of anticoagulants; Z20.822 Contact with and (suspected) exposure to COVID-19; Z79.899 Other long term (current) drug therapy
CPT/HCPCS: 15830; 15847; 15877; 36415; 70450; 80053; 80307; 81001; 82948; 85025; 87637; A9270; J0171; J0690; J1100; J1170; J1815; J2250; J2405; J2704; J3010; J7120

== ENCOUNTER 2024-12-21 00:55 | Day surgery (SDC) | payer OTHER, SELFPAY ==
[2024-12-10 15:07] VITALS: BMI 23.1
--- NOTE | 2024-12-10 15:18 | PC.NURSE ---
Report to the Outpatient Waiting Room, entrance under the green pavilion located off [facility], at time _0630am on date __12/21/24 . Planned Procedure Time: _0830am .? Time changes happen often and if your time is changed the preop area will call you the afternoon before. - You and your visitor will be asked to self-screen and do not enter if you have any COVID symptoms. Please call surgeon if you need to reschedule. - A mask is optional within the hospital at this time. Patients may have clear liquids (water, carbonated beverages, clear teas, apple juice) until 3 hours prior to surgery with a maximum of 20 ounces. - No food from midnight until time of surgery and no smoking, or chewing tobacco (or any form of nicotine). No chewing gum, candy or mints. (0530am) Take only the following medications with a SIP of water on the morning of surgery: ____Diltiazem DO NOT STOP ANY OF YOUR OTHER PRESCRIPTION MEDICATIONS PRIOR TO SURGERY EXCEPT THE FOLLOWING Hold all vitamins and supplements for 3 days per anesthesiologist. Date of last dose is 12/17/24. Medications to discontinue per physician Xarelto and Jardiance both [address] Payton & Controller Repairer And Tester Date to take last dose___12/17/24 Please no make-up, nail icelandic, hairspray, perfume, deodorant, or body powder the day of surgery.? No jewelry (including any body piercings) or valuables the day of surgery, leave them at home.? Please take a shower or bath the night before, or the morning of, surgery with an antibacterial soap.? Wear comfortable, loose fitting clothing.? - Jewelry must be removed prior to entering the operating room.? Rings and piercings that are not removed may be cut off. - The hospital will not accept responsibility for valuables.? - Please leave all valuables, including medications, at home the day of surgery. If you are going home after surgery, a licensed nascar driver must drive you home.? - NO public transportation without another adult if you receive anesthesia. - We recommend that an adult stay with you for 24 hours following discharge. - We also recommend that you do not drive, make important decision, drink alcoholic beverages, or take any drugs that were not prescribed by your health care provider for at least 24 hours after your discharge time. Follow any additional instructions given to you from your surgeon. Telephone instructions given to __Patient and asked if any additional questions and then verbalized understanding. Patient advised to call surgeon office or pre surgery nurse liaison [phone] if any additional questions.
[2024-12-21] VITALS (8 sets, daily range): BP systolic 120–152; BP diastolic 55–68; PULSE 58–91; RESP 12–18; TEMP 36.4–37.2; O2SAT 94–99
--- OUTSIDE RECORDS SUMMARY | 2024-12-21 00:57 | XMS_ITS ---
Author Organization [facility] Address [address] [facility] [address] [place], [place] [id number] Care Team Providers Care Ice Cream Server Name Role Phone JUAN LOERA Primary Care Provider Unavailab Eloise Mancini Unavailable [phone] ALLERGIES Allergen (clinical drug ingredient) Drug/Non Drug Allergy documented on EMR Reaction Allergy Type Onset Date Status duloxetine rash Drug Allergy Active RESULTS Component Value Reference Range Notes CBC With Differential/Platel et Reviewed date:12/07/2024 10:22:50 AM Interpretation: Performing Lab:[facility] [place], [address] [facility], [place], Phone - [phone], Director - Tea Notes/Report: WBC 6.1 3.4-10.8 x10E3/uL RBC 3.86 3.77-5.28 x10E6/uL Hemoglobin 11.0 11.1-15.9 g/dL Hematocrit 35.5 34.0-46.6 % MCV 92 79-97 fL MCH 28.5 26.6-33.0 pg MCHC 31.0 31.5-35.7 g/dL RDW 13.0 11.7-15.4 % Platelets 281 150-450 x10E3/uL Neutrophils 73 Not Estab. % Lymphs 17 Not Estab. % Monocytes 8 Not Estab. % Eos 1 Not Estab. % Basos 1 Not Estab. % Immature Cells Neutrophils (Absolute) 4.5 1.4-7.0 x10E3/uL Lymphs (Absolute) 1.0 0.7-3.1 x10E3/uL Monocytes(Absolute) 0.5 0.1-0.9 x10E3/uL Eos (Absolute) 0.1 0.0-0.4 x10E3/uL Baso (Absolute) 0.0 0.0-0.2 x10E3/uL Immature Granulocytes 0 Not Estab. % Immature Grans (Abs) 0.0 0.0-0.1 x10E3/uL NRBC Hematology Comments: Sed Rate - Westergren Reviewed date:12/07/2024 08:16:49 AM Interpretation: Performing Lab:[facility] [address], Phone - [phone], Director - [facility] Notes/Report: Sedimentation Rate-Westergren 4 0-40 mm/hr C-Reactive Protein, Quant Reviewed date:12/07/2024 08:16:52 AM Interpretation: Performing Lab:[facility] [address], Phone - [phone], Director - [facility] Notes/Report: C-Reactive Protein, Quant <1 0-10 mg/L Comp. Metabolic Panel (14) Reviewed date:12/07/2024 10:23:05 AM Interpretation: Performing Lab:[facility] [address], Phone - [phone], Director - [facility] Notes/Report: Glucose 312 70-99 mg/dL BUN 12 8-27 mg/dL Creatinine 0.88 0.57-1.00 mg/dL eGFR 71 >59 mL/min/1.73 BUN/Creatinine Ratio 14 12-28 Sodium 140 134-144 mmol/L Potassium 4.0 3.5-5.2 mmol/L Chloride 104 96-106 mmol/L Carbon Dioxide, Total 21 20-29 mmol/L Calcium 9.2 8.7-10.3 mg/dL Protein, Total 6.1 6.0-8.5 g/dL Albumin 4.2 3.9-4.9 g/dL Globulin, Total 1.9 1.5-4.5 g/dL Bilirubin, Total 0.3 0.0-1.2 mg/dL Alkaline Phosphatase 103 44-121 IU/L AST (SGOT) 36 0-40 IU/L ALT (SGPT) 27 0-32 IU/L REASON FOR VISIT 6 mo f/u MEDICATIONS Medication SIG (Take, Route, Frequency, Duration) Notes Start Date End Date Status potassium Active chlorthalidone 25 mg 1 tab(s) orally onc e a day Active losartan 50 mg 1 tab(s) orally once a day Active atorvastatin 40 mg 1 tab(s) orally once a day Active dilTIAZem 120 mg 1 tab(s) orally once a day Active ergocalciferol 50,000 intl units 1 cap(s) orally once a week Active Jardiance 25 mg 1 tab(s) orally once a day (in the morning) Active Vitamin B12 1000 mcg 1 tab(s) orally onc e a day Active PARoxetine 20 mg 1 tab(s) orally once a day Active iron oral Active hydroxychloroquine 200 mg 1 tab(s) orall y once a day Active Xarelto 20 mg 1 tab(s) orally once a day Active VITAL SIGNS BMI 23.79 kg/m2 12/06/2024 Blood pressure systolic 116 mm Hg 12/07/19 25 Blood pressure diastolic 61 mm Hg 025 Heart Rate 77 /min 12/06/2024 Height 65 in 12/06/2024 Weight 143 lbs 12/06/2024 Encounters Encounter Location Date Provider Diagnosis [facility] 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 (ICD-10 - Z79.899) 12/06/2024 Xerostomia (ICD-10 - K11.7) PLAN OF TREATMENT Medication Medication Name Sig Start Date Stop Date Notes potassium chlorthalidone 25 mg 1 tab(s) orally onc e a day losartan 50 mg 1 tab(s) orally once a day atorvastatin 40 mg 1 tab(s) orally once a day dilTIAZem 120 mg 1 tab(s) orally once a day ergocalciferol 50,000 intl units 1 cap(s ) orally once a week hydroxychloroquine 200 mg 1 tab(s) orall y once a day Xarelto 20 mg 1 tab(s) orally once a day Pending Test Test Name Order Date X ray : Spines, cervical- outside order 12/06/2024 X ray : Shoulder, left- outside order X ray : Shoulder, right- outside order 0 12/06/2024 Next Appt Details Follow Up: 4 Months Lakia, Reason: Progress Notes * Examination Category Sub-Category Detail Notes General Constitutional: No acute distres s HEENT: PERRLA, Neck supple, Normal sclerae and conjunctivae Abdomen: soft, no organomegal y or masses /Rectal: not done Skin: No cutaneous lesions . No subcutaneous nodules noted in the 4 extremities Neurological: No focal neurologica l findings Heme/Lymphatic: No cervical, axillar y, or inguinal adenopathy Psych: Alert, oriented x 3, Normal affect Musculoskeletal: Normal strength. No muscle atrophy Joint Exam Shoulders bilateral; 1+ te nderness; decreased ROM Elbows No swelling. No tend erness. NROM., No instability or deformity. Wrists No swelling. No tend erness. NROM., No instability or deformity. Hips No tenderness, NROM. , No instability or deformity. Knees left, total knee rep lacement, right, Crepitus with motion Ankles No swelling, no tend erness, NROM., No instability or deformity. All IPs No swelling, no tend erness, NROM, no deformity unless noted below. All MCPs No swelling, no tend erness, no deformity unless noted below. All PIPs Vic's nodes All DIPs Heberden's nodes pre sent History and Physical Notes * HPI (History of Present Illness) Category Sub-Category Detail Notes Rheumatology Joint pain Joint swelling ankles Fever Dyspnea/SOB Cough Lymphadenopathy Chills fatigue morning stiffness Less than 30 minutes myalgias infection dry eyes dry mouth Raynaud's/ dicoloration of fingers muscle weakness digital ulcerations rash dysphagia photosensitivity Back pain History of gout Headaches Psoriasis Oral sores Iritis, conjuctivitis, uveiitis Numbness or tingling Family History of Rheumatic Disease Alopecia chest pain miscarriage Physical Examination Category Sub-Category Detail Notes MDHAQ Summary Function (0-10):: 2.3 Pain (0-10):: 7.5 Patient Global Assessment of Disease Activity (0 -10):: 7.5 RAPID3 Score (0-30):: 17.3 Physician Global Assessment of Disease Activity (0-10):: 2 Prognosis Very Good w/tx Erosive Damage No
--- OUTSIDE RECORDS SUMMARY | 2024-12-21 00:57 | XMS_ITS | Encounter Summary ---
Author Organization [facility] Address 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 [id number] [place] [address] Amanda Daley MD [address] [facility] [address] [place] [address] 01/12/2025 9:15 AM CDT Office Visit [facility] Internal Medicine Medical [place] [facility] [address] [facility] [address] [place] [address] Ck Posadas MD [address] [facility] [address] [place] [address] 05/16/2025 9:15 AM CDT Office [facility] Endocrinology [address] [facility] [address] [place] [address] Victor M Greco MD [address] [facility] [address] [place] [address] documented as of this encounter Visit Diagnoses Diagnosis Reflux esophagitis- Primary documented in this encounter Additional Health Concerns Infection Onset Date Last Indicated Resolved Time R/O C. diff 03/11/2022 03/09/2022 03/11/2022 3:22 PM CDT documented as of this encounter Care Teams Pearl Digger Relationship Specialty Start Date End Date Ck Posadas MD [address] [place] [address] [address] [place] [address] PCP - General 12/10/07 documented as of this encounter
--- OUTSIDE RECORDS SUMMARY | 2024-12-21 00:57 | XMS_ITS | Encounter Summary ---
Author Organization [facility] Address 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 Gender Identity Not on file Sexual Orientation Not on file documented as of this encounter Plan of Treatment Upcoming Encounters Date Type Department Care Team (Late st Contact Info) Description 12/28/2024 8:30 AM CDT Office Visit [facility] Heart and Vascular - [facility] [address] [facility] [address] [address] [place] [address] Amanda Daley MD [address] [facility] [address] [place] [address] 01/12/2025 9:15 AM CDT Office Visit [facility] Internal Medicine Medical [place] [facility] [address] [facility] [address] [address] Ck Posadas MD [address] [facility] [address] [address] 05/16/2025 9:15 AM CDT Office Visit [facility] Endocrinology [address] [facility] [address] [place] [address] Victor M Greco MD [address] [facility] [address] [place] [address] documented as of this encounter Visit Diagnoses Diagnosis Esophageal reflux- Primary documented in this encounter Additional Health Concerns Infection Onset Date Last Indicated Resolved Time R/O C. diff 03/11/2022 03/09/2022 03/11/2022 3:22 PM CDT documented as of this encounter Care Teams Rolled Materials Worker Relationship Specialty Start Date End Date Ck Posadas MD [address] [facility] [address] [address] PCP - General 12/10/07 documented as of this encounter
--- OUTSIDE RECORDS SUMMARY | 2024-12-21 00:57 | XMS_ITS | Encounter Summary ---
Author Organization [facility] Address [address] [place] [address] Care Team Providers Care Developer Evangelist Name Role Phone Ck Posadas MD Primary Care Provider [phone] Encounter Details Date Type Department Care Team (Late st Contact Info) Description 09/29/2007 Outpatient Historical [facility] Internal Medicine [facility] [address] [facility] [address] [place] [address] Ck Posadas MD [address] 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 Gender Identity Not on file Sexual Orientation Not on file documented as of this encounter Plan of Treatment Upcoming Encounters Date Type Department Care Team (Late st Contact Info) Description 12/28/2024 8:30 AM CDT Office Visit [facility] Heart and Vascular - [address] [place] [address] Amanda Daley MD [address] [place] [address] 01/12/2025 9:15 AM CDT Office Visit [facility] Internal Medicine [facility] [address] [facility] [address] [address] Ck Posadas MD [address] [place] [address] [address] [place] [address] 05/16/2025 9:15 AM CDT Office Visit [facility] Endocrinology [address] [place] [address] [address] [address] Victor M Greco MD [facility] [address] [facility]Note 2] [address], [place] [address] documented as of this encounter Visit Diagnoses Not on filedocumented in this encounter Additional Health Concerns Infection Onset Date Last Indicated Resolved Time R/O C. diff 03/11/2022 03/09/2022 03/11/2022 3:22 PM CDT documented as of this encounter Care Teams Developer Evangelist Relationship Specialty Start Date End Date Ck Posadas MD [address] [place] [address] [address] PCP - General 12/10/07 documented as of this encounter
--- OUTSIDE RECORDS SUMMARY | 2024-12-21 00:57 | XMS_ITS | Continuity of Care Document ---
Author Organization formerly [facility]. If a dditional information is needed, contact Health Information Management at [phone] [address] [place] [address] Phone Care Team Providers Care Paving Stone Installer Name Role Phone Unavailable Unavailable Unavailable Unavailable Unavailable Unavailable Problems Herpes zoster Onset:10-Jun-2023 Allergies and Adverse Reactions No Known Allergies(Allergy) Onset: 10-Jun-2023 Social History Smoking Status Never smoked tobacco Recorded: 10-Jun-2023
--- OUTSIDE RECORDS SUMMARY | 2024-12-21 00:57 | XMS_ITS | Encounter Summary ---
Author Organization [facility] Address [address] [place] [address] Care Team Providers Care Piping Designer Name Role Phone Ck Posadas MD Primary Care Provider Encounter Details Date Type Department Care Team (Latest Contact Info) Description 09/29/2007 Outpatient Historical [facility] Internal Medicine [facility] [address] [facility] [address] [place] [address] Ck Posadas MD [address] [facility] [address] [place] [address] Screening for Thyroid Disorder Social History Tobacco Use Types Packs/Day Years Used Date Smoking Tobacco: Never Assessed Comments Unknown Sex and Gender Information Value Date Recorded Sex Assigned at Not on file Legal Sex Female 5:28 AM KEY ATTENDANT Gender Identity Not on file Sexual Orientation Not on file documented as of this encounter Plan of Treatment Upcoming Encounters Date Type Department Care Team (Late st Contact Info) Description 12/28/2024 8:30 AM CDT Office Visit [facility] Heart and Vascular - [facility] [address] [place] [address] Amanda Daley MD [address] [facility] [address] [place] [address] 01/12/2025 9:15 AM CDT Office Visit [facility] Internal Medicine [facility] A [facility] [address] [facility] [address] [address] Ck Posadas MD [address] [facility] [address] [address] 05/16/2025 9:15 AM CDT Office Visit [facility] Endocrinology [address] [facility] [address] [place] [address] Victor M Greco MD [address] [facility] [address] [place] [address] documented as of this encounter Procedures Procedure Name Priority Date/Time Associated Diagnosis Comments TSH WITH REFLEX FT4 AND FT3 Routine 09/29/2007 10:52 AM KEY ATTENDANT LIPID PANEL Routine 09/29/2007 10:52 AM KEY ATTENDANT BASIC METABOLIC PANEL Routine 09/29/2007 10:52 AM KEY ATTENDANT documented in this encounter Results * TSH WITH REFLEX FT4 AND FT3 (09/29/2007 10:52 AM KEY ATTENDANT) TSH 3.47 0.27 - 4.20 uU/mL [facility] Blood specimen (specimen) 09/29/2007 10:52 AM KEY ATTENDANT 09/29/2007 11:30 AM KEY ATTENDANT Ck Posadas MD CHEMISTRY ORDERABLES Final Result [facility] [address] [place] [address] * (ABNORMAL) BASIC METABOLIC PANEL (09/29/2007 10:52 AM KEY ATTENDANT) CREATININE 0.61 0.51 - 0.95 mg/dL [facility] POTASSIUM 4.3 3.5 - 4.9 mmol/L [facility] BUN 10 6 - 20 mg/dL [facility] CHLORIDE 104 96 - 108 mmol/L [facility] GLUCOSE 104(H) 65 - 99 mg/dL [facility] SODIUM 140 135 - 145 mmol/L [facility] CALCIUM 9.3 8.4 - 10.2 mg/dL [facility] CO2 27 22 - 30 mmol/L [facility] GFR, >60 >=60 mL/min/1. 7 sq meter [facility] GFR >60 >=60 mL/min/1. 7 sq meter [facility] Comment: Estimated GFR rate interpretative information for both Americans and non- Americans is available on the [facility] Intranet at: [email or web address] Select: Lab Policies and Procedures Select: Reference Ranges - GFR Blood specimen (specimen) 09/29/2007 10:52 AM KEY ATTENDANT 09/29/2007 11:30 AM KEY ATTENDANT us Ck Posadas MD CHEMISTRY ORDERABLES Edited [facility] [address] [place] [id number] * (ABNORMAL) LIPID PANEL (09/29/2007 10:52 AM KEY ATTENDANT) HDL 79(H) 40 - 59 mg/dL [facility] CHOLESTEROL 208(H) 100 - 199 mg/dL [facility] TRIGLYCERIDE 59 10 - 149 mg/dL [facility] CHOL/HDL RATIO 2.6 2.0 - 5.0 [facility] LDL CALCULATED 117(H) <=99 mg/dL [facility] LIPID PANEL COMMENT See Below [facility] Comment: The adult ATP and pediatric NCEP classifications for lipids are available on the [facility] Intranet at: [email or web address] Select: Lab Policies and Procedures,Current Select: Lipid Panel Interpretation Blood specimen (specimen) 09/29/2007 10:52 AM KEY ATTENDANT 09/29/2007 11:30 AM KEY ATTENDANT us Ck Posadas MD CHEMISTRY ORDERABLES Edited [facility] [address] [place] [address] documented in this encounter Visit Diagnoses Diagnosis Screening for thyroid disorder documented in this encounter Additional Health Concerns Infection Onset Date Last Indicated Resolved Time R/O C. diff 03/11/2022 03/09/2022 03/11/2022 3:22 PM CDT documented as of this encounter Care Teams Piping Designer Relationship Specialty Start Date End Date Ck Posadas MD [address] [facility] [address] [address] PCP - General 12/10/07 documented as of this encounter
--- OUTSIDE RECORDS SUMMARY | 2024-12-21 00:57 | XMS_ITS | Encounter Summary ---
Author Organization [facility] Address 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 Gender Identity Not on file Sexual Orientation Not on file documented as of this encounter Plan of Treatment Upcoming Encounters Date Type Department Care Team (Late st Contact Info) Description 12/28/2024 8:30 AM CDT Office Visit [facility]3] Heart and Vascular - [facility] [address] [place] [address] Amanda Daley MD [address] [facility] [address] [place] [address] 01/12/2025 9:15 AM CDT Office Visit [facility]3] Internal Medicine Medical [place] [facility] [address] [facility] [address] [place] [address] Ck Posadas MD [address] [facility] [address] [address] 05/16/2025 9:15 AM CDT Office Visit [facility]3] Endocrinology [address] [facility] [address] [place] [address] Victor M Greco MD [address] [facility] [facility] [address] [place] [address] documented as of this encounter Visit Diagnoses Diagnosis Acute gastritis without mention of hemorrhage- Primary documented in this encounter Additional Health Concerns Infection Onset Date Last Indicated Resolved Time R/O C. diff 03/11/2022 03/09/2022 03/11/2022 3:22 PM CDT documented as of this encounter Care Teams Trimmer Tailer Relationship Specialty Start Date End Date Ck Posadas MD [address] [facility] [address] [place], [place] [address] PCP - General 12/10/07 documented as of this encounter
--- OUTSIDE RECORDS SUMMARY | 2024-12-21 00:57 | XMS_ITS | Encounter Summary ---
Author Organization [facility] Address [address] [place] [address] Care Team Providers Care Repairer Switchgear Name Role Phone Ck Posadas MD Primary Care Provider Encounter Details Date Type Department Care Team (Late st Contact Info) Description 09/29/2007 Outpatient Historical [facility] Internal Medicine [facility] [address] [facility] [address] [place] [address] Ck Posadas MD [address] 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 Gender Identity Not on file Sexual Orientation Not on file documented as of this encounter Plan of Treatment Upcoming Encounters Date Type Department Care Team (Late st Contact Info) Description 12/28/2024 8:30 AM CDT Office Visit [facility] Heart and Vascular - [place] [address] [place] [address] Amanda Daley MD [address] [place] [address] 01/12/2025 9:15 AM CDT Office Visit [facility] Internal Medicine [facility] [address] [facility] [address] [address] Ck Posadas MD [address] [place] [address] [address] [place] [address] 05/16/2025 9:15 AM CDT Office Visit [facility] Endocrinology [address] [place] [address] [address] [address] Victor M Greco MD [facility] [address] [facility] [address], [place] [address] documented as of this encounter Visit Diagnoses Not on filedocumented in this encounter Additional Health Concerns Infection Onset Date Last Indicated Resolved Time R/O C. diff 03/11/2022 03/09/2022 03/11/2022 3:22 PM CDT documented as of this encounter Care Teams Repairer Switchgear Relationship Specialty Start Date End Date Ck Posadas MD [address] [place] [address], [place] [address] PCP - General 12/10/07 documented as of this encounter
--- OUTSIDE RECORDS SUMMARY | 2024-12-21 00:57 | XMS_ITS | Encounter Summary ---
Author Organization [facility] Address 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 Gender Identity Not on file Sexual Orientation Not on file documented as of this encounter Plan of Treatment Upcoming Encounters Date Type Department Care Team (Late st Contact Info) Description 12/28/2024 8:30 AM CDT Office Visit [facility] - [facility] [address] [place] [address] Amanda Daley MD [address] [facility] [address] [place] [address] 01/12/2025 9:15 AM CDT Office Visit [facility] Internal Medicine Medical [place] A [facility] [address] [facility] [address] [address] Ck Posadas MD [address] [facility] [address] [place] [address] 05/16/2025 9:15 AM CDT Office Visit [facility] Endocrinology [address] [facility] [address] [place] [address] Victor M Greco MD [address] [facility] [address] [place] [address] documented as of this encounter Visit Diagnoses Diagnosis Abdominal pain, unspecified site- Primary documented in this encounter Additional Health Concerns Infection Onset Date Last Indicated Resolved Time R/O C. diff 03/11/2022 03/09/2022 03/11/2022 3:22 PM CDT documented as of this encounter Care Teams Bus Mechanic Relationship Specialty Start Date End Date Ck Posadas MD [address] [place] [address] [address] [place], [place] [address] PCP - General 12/10/07 documented as of this encounter
--- OUTSIDE RECORDS SUMMARY | 2024-12-21 00:57 | XMS_ITS | Encounter Summary ---
Author Organization [facility] Address 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 Gender Identity Not on file Sexual Orientation Not on file documented as of this encounter Plan of Treatment Upcoming Encounters Date Type Department Care Team (Late st Contact Info) Description 12/28/2024 8:30 AM CDT Office Visit [facility] Heart and Vascular - [facility] [address] [place] [address] Amanda Daley MD [address] [facility] [address] [place] [address] 01/12/2025 9:15 AM CDT Office Visit [facility] Internal Medicine Medical [place] A [facility] [address] [facility] [address] [address] Ck Posadas MD [address] [facility] [address] [address] 05/16/2025 9:15 AM CDT Office Visit [facility] Endocrinology [address] [facility] [address] [place] [address] Victor M Greco MD [address] [facility] [address] [place] [address] documented as of this encounter Visit Diagnoses Not on filedocumented in this encounter Additional Health Concerns Infection Onset Date Last Indicated Resolved Time R/O C. diff 03/11/2022 03/09/2022 03/11/2022 3:22 PM CDT documented as of this encounter Care Teams Rn Invasive Relationship Specialty Start Date End Date Ck Posadas MD [address] [facility] [address] [address] PCP - General 12/10/07 documented as of this encounter
--- OUTSIDE RECORDS SUMMARY | 2024-12-21 00:57 | XMS_ITS | Clinical Summary ---
Author Organization [facility] Address [address] [place] [address] Care Team Providers Care Laser Set Up Operator Name Role Phone Ck Posadas MD Primary Care Provider [phone] Allergies Active Allergy Reactions Criticality Noted Date Comments Duloxetine Rash Medium 10/19/2020 Pt. Does not remember reaction to medication. Linagliptin Other (See comments) Low 04/05/2016 Other reaction(s): Other (See Comments) Pt. Does not remember reaction to medication. arthralgia arthralgia Metformin Diarrhea,Dizziness,N ause a only Low 12/14/2015 Dizzy, nausea regular release and extended release Medications ALPRAZolam (XANAX) 0.5 mg tabletIndicatio ns:Insomnia Take 0.5 mg by mouth as needed 5 Active atorvastatin (LIPITOR) 10 mg tabletIndicatio ns:hyperlipidem ia Take 1 tablet (10 mg total) by mouth nightly 1 Active cyanocobalamin (Vitamin B-12) 1,000 mcg tabletIndicatio ns:Prevention of Vitamin B12 Deficiency Take 1 tablet (1,000 mcg total) by mouth every morning Active ergocalciferol (VITAMIN D) 50,000 unit capsuleIndicati ons:Vitamin D Deficiency Take 1 capsule (50,000 Units total) by mouth once a week Friday 2 Active hydrOXYchloroQU INE (PLAQUENIL) 200 mg tabletIndicatio ns:Rheumatoid Arthritis Take 1 tablet (200 mg total) by mouth 2 (two) times a day 6 Active glipiZIDE (GLUCOTROL) 5 mg tabletIndicatio ns:type 2 diabetes mellitus Take 1 tablet (5 mg total) by mouth every morning 3 Active magnesium oxide 200 mg magnesium tabletIndicatio ns:supplement Take 1 tablet (200 mg of elemental magnesium total) by mouth every morning Active acetaminophen (TYLENOL) 500 mg tablet Take 2 tablets (1,000 mg total) by mouth every 8 (eight) hours 90 tablet 1 3 Active cyanocobalamin/ folic acid (vitamin N78-uxucw acid) 1,000-400 mcg lozenge Active folic acid-vit B6-vit B12 2.2-25-1 mg tablet daily Active traZODone (DESYREL) 50 mg tablet TAKE 1/2 TO 1 TABLET(25 TO 50 MG) BY MOUTH EVERY NIGHT NEEDED FOR INSOMNIA 3 Active valACYclovir (VALTREX) 1 gram tablet Take 1 tablet (1,000 mg total) by mouth 3 (three) times a day 3 Active vitamin K2, MK-4, 100 mcg tablet Active sertraline (ZOLOFT) 50 mg tablet Continue to take one tablet (50mg) by mouth once daily for two weeks, then increase to two tablets (100mg) once daily. 3 Active pxdfplim-aam-lz lic acid-vit K 400-80 mcg capsule Active dilTIAZem CD/XR/XT (dilTIAZem CD) 120 mg 24 hr capsule Take 1 capsule (120 mg total) by mouth daily Active rivaroxaban (XARELTO) 20 mg tablet Take 1 tablet (20 mg total) by mouth Active Active Problems Problem Noted Date Diagnosed Date Other hyperlipidemia 09/17/2023 Obstructive sleep apnea (adult) (pediatric) 02/2024 Nonrheumatic tricuspid valve regurgitation 09/17 Left ventricular hypertrophy 09/17/2023 Demand ischemia 09/17/2023 Shortness of breath 09/09/2023 Palpitations 09/09/2023 Elevated troponin 09/09/2023 Chest tightness 09/09/2023 Atrial fibrillation with rapid ventricular respo nse 09/09/2023 Left leg pain 07/01/2023 Arthritis 02/21/2023 Dry eyes 02/21/2023 Fuchs' corneal dystrophy 02/21/2023 Heart disease 02/21/2023 Primary osteoarthritis of left knee 11/01/2022 Osteoarthritis of left knee, unspecified osteoarthritis type 11/01/2022 Backache 06/11/2022 Cervical spondylosis 06/11/2022 Fibromyalgia 06/11/2022 Rheumatoid factor positive 06/11/2022 Dry eye syndrome of unspecified lacrimal gland 0 12/07/2021 Presbyopia 12/07/2021 Pingueculitis of both eyes 10/10/2021 Regular astigmatism, unspecified eye 10/10/2021 Diabetes mellitus 11/27/2020 Endothelial corneal dystrophy, unspecified eye 0 11/27/2020 Nuclear senile cataract 11/27/2020 Seborrheic dermatitis 11/14/2020 Gastroesophageal reflux disease without esophagi tis 01/04/2020 Atherosclerosis of [place] co ronary artery of [place] heart without angina pectoris 08/31/2019 Overview (06/11/2022): OM2-30%, RCA 20-30-20 % on cardiac cath, nonobstructive Impingement syndrome of left shoulder 12/01/2018 Moderate episode of recurrent major depressive d isorder 05/07/2018 Iron deficiency anemia secon tri to inadequate dietary iron intake 12/24/2016 Low serum vitamin D 08/22/2016 Non morbid obesity due to excess calories 2016 Obesity (BMI 30.0-34.9) 11/03/2015 Type 2 diabetes mellitus without complications 1 09/14/2014 Depressive disorder 03/28/2015 Myalgia and myositis 03/28/2015 Overview (06/11/2022): Other malaise and fatigue 03/28/2015 Rheumatoid arthritis involving multiple joints 0 03/28/2015 Overview (06/11/2022): Vitamin D deficiency 04/07/2014 Osteoarthritis of knee 11/29/2012 Age related osteoporosis 02/01/2010 Overview (06/11/2022): Last Assessment & Plan: Worsening. Worsening BMD to left femur and spine. Osteoporosis to spine. Start Fosamax weekly, recheck in 2 years. Major Osteoporotic: 19.5% -Hip: 2.6% Insomnia 01/24/2009 Overview (06/11/2022): Overview: Anxiety disorder 09/29/2007 Immunizations Immunization Administration Dates Next Due Influenza, Quadrivalent, Hig h Dose, Preservative Free, Intrr 05/13/2023 Influenza, Quadrivalent, Spl it, Preservative Free, Intramuscular 04/29/2019,05/20/2018 Influenza, Trivalent, IM (MDV) 8,05/13/2017,05/14/2016,07/11,07/01/2014,05/17/2013,05/25/2012 Pneumococcal Conjugate PCV 13 05/12/2020 Pneumococcal Conjugate Pcv20 05/13/2023 Pneumococcal Polysaccharide PPV23 07/29/2017 TD Preservative Free 10/05/2021 Tdap 03/31/2011 Surgical History Surgery Date Site/Laterality Comments PEDRO-EN-Y PROCEDURE 08/11/2002 - 08/10/2003 KNEE SURGERY Bilateral WRIST SURGERY PLANTAR FASCIA SURGERY Medical History Medical History Date Comments PONV (postoperative nausea and vomiting) Rheumatoid arthritis (HCC) Osteoporosis Type 2 diabetes mellitus (HCC) Heart disease 02/21/2023 Obstructive sleep apnea (adult) (pediatric) 2023 Family History Medical History Relation Name Comments Breast cancer Maternal cousin Coronary artery disease Mother Stroke Mother Breast cancer Paternal cousin Breast cancer Sister Heather Anesthesia problems Neg Hx Relation Name Status Comments Maternal cousin Mother Paternal cousin Sister Heather Alive Social History Tobacco Use Types Packs/Day Years Used Date Smoking Tobacco: Never Passive Smoke Exposure: Past Smokeless Tobacco: Never Tobacco Cessation:Counseling Given: Not Answered AUDIT-C Answer Date Recorded Q1: How often do you have a drink containing alcohol? Never 11/01/2022 Q2: How many drinks containi ng alcohol do you have on a typical day when you are drinking? Patient does not drink Q3: How often do you have si x or more drinks on one occasion? Never 11/01/2022 Personal Safety Answer Date Recorded Have you ever been in or are you currently in a harmful physical or emotional relationship or is someone making you feel afraid or unsafe? 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 Temperature 36.6 C (97.9 F) 11/02/2022 7:32 AM CDT Respiratory Rate 16 11/02/2022 7:32 AM CDT Oxygen Saturation 96% 07/01/2023 8:44 AM GASSER 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 Inhaled Oxygen Concentration - - Weight 81.2 kg (179 lb) 07/01/2023 8:44 AM GASSER 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 Height 165.1 cm (5' 5 ) 11/01/2022 10:36 AM CDT Body Mass Index 29.79 11/01/2022 10:36 AM CDT Plan of Treatment Health Maintenance Due Date Last Done Comments Albumin Creatinine Ratio, Urine 1955 Colon Cancer Screening-Colonoscopy 1955 Depression Screening 1955 Hepatitis C Screening 1955 Dilated Eye Exam 1955 Foot Exam 1955 Hepatitis B Screening 1973 Zoster Vaccine (1 of 2) 1974 Well Visit 65+ 2020 Covid-19 Vaccine (3 - Modern a risk series) 12/01/2020 11/03/2020, 10/04/2020 Hemoglobin A1C 10/22/2023 04/23/2023, 10/09, 06/18/2022, Additional history exists Fall Risk Assessment 11/03/2023 11/02/2022 eGFR 11/03/2023 11/02/2022, 10/21/2022 Lipid Panel 10/15/2024 10/16/2023, 08/16/2019 Breast Cancer Screening-Mammogram 01/11/2025 01/12/2024, 12/20/2022, 12/20/2022, Additional history exists Influenza Vaccine (Season Ended) 2025 05/13/2023, 04/29/2019, 05/21/2018, Additional history exists Osteoporosis Screening-Bone Density Scan 05/16/2025 05/16/2023, 05/16/2023, 06/11/2022, Additional history exists DTaP/Tdap/Td Vaccine (3 - Td or Tdap) 10/05/2031 10/05/2021, 03/31/2011 Pneumococcal vaccine 65+ Completed 023, 05/12/2020, 07/29/2017 Medical Devices Implanted Type Area Skin Care Specialist Device Identifier Shelf Expiration Date Model / Serial / Lot [employer] Simplex P Full Dose Radiopaque Preblend Cement Bone Tobramycin 6197-9-010 - Sna - [id number] Implanted:Qty: 1 on 11/01/2022 by Cinthia Franz MD at [facility] Bone Cement Left: Knee [employer] 03/10/2024 6197-9-0 10 / NA / [id number] [employer] Simplex P Full Dose Radiopaque Preblend Cement Bone Tobramycin 6197-9-010 - Sna - [id number] Implanted:Qty: 1 on 11/01/2022 by Cinthia Franz MD at [facility] Bone Cement Left: Knee [employer] 03/10/2024 6197-9-0 10 / NA / [id number] [employer] Triathlon Cemented Total Stabilize Knee 2 Sylvester Baseplate 5521-B-200 - Sna - [id number] Implanted:Qty: 1 on 11/01/2022 by Cinthia Franz MD at [facility] Other - see comments Left: Knee [employer] [id number] 06/30/2027 5521-B-2 00 / NA / [id number] [employer] Triathlon Cruciate Retaining Cemented Knee Left 2 Component 5510-F-201 - Sna - [id number] Implanted:Qty: 1 on 11/01/2022 by Cinthia Franz MD at [facility] Other - see comments Left: Knee [employer] [id number] 07/17/2026 5510-F-2 01 / NA / [id number] [employer] Triathlon 11mm Bearing Condylar Stabilize Knee 2 Insert Tibial 8834-D-213-E - Sna - [id number] Implanted:Qty: 1 on 11/01/2022 by Cinthia Franz MD at [facility] Other - see comments Left: Knee [employer] [id number] 02/02/2027 5531-G-2 11-E / NA / [id number] Procedures Procedure Name Priority Date/Time Associated Diagnosis Comments EGFR Routine 11/02/2022 3:54 AM CDT HEMOGLOBIN A1C Routine 10/21/2022 11:10 AM CDT Primary osteoarthritis of left knee Type 2 diabetes mellitus without complication, unspecified whether senior living insulin use (HCC) SCREENING MAMMOGRAM BILATERAL W IVAN Schedule Routine, Read Routine (OP Routine) 12/17/2021 8:49 AM CDT Screening mammogram, encounter for from Last 3 Months or Most Recently Relevant to Health Maintenance Results * eGFR (11/02/2022 3:54 AM CDT) eGFR 103 mL/min/1. 73 m2 [facility] Comment: Interpretive Data Reference Interval Normal >/= 90 mL/min/1.73m2 Mildly decreased* 60 - 89 mL/min/1.73m2 Mildly to moderately decreased 45 - 59 mL/min/1.73m2 Moderately to severely decreased 30 - 44 mL/min/1.73m2 Severely decreased 15 - 29 mL/min/1.73m2 Kidney Failure < 15 mL/min/1.73m2 *Relative to young adult level Estimated glomerular filtration rate is determined by the 2021 CKD-EPI equation recommended by the National Kidney Foundation (A Unifying Approach to GFR Estimation: Recommendations of the NKF-ASK Task Force on Reassessing the Inclusion of Race in Diagnosing Kidney Disease, JASN 2020). The CKD-EPI equation should not be used for patients with unstable renal function and has not been validated in children and those over 70. Current interpretive data was last reviewed 2021. Blood 11/02/2022 3:54 AM CDT 11/02/2022 3:59 AM CDT Satish Bergeron MD LAB BLOOD ORDERABLES Fi nal Result Performing Organization Address [facility] Co de Phone Number [facility] [address] [employer] [place], [place] [phone] * (ABNORMAL) Hemoglobin A1c (10/21/2022 11:10 AM CDT) Hgb A1C 6.6(H) 4.0 - 5.6 % [facility] Estimated Average Glucose 143 mg/dL [facility] Comment: The ADA recommends reporting an estimated Average Glucose (eAG) with all Hemoglobin A1c results using the equation derived from a study of 507 normal and diabetic adults. Minority populations were underrepresented and children were not included. (Diabetes Care 31:0188-9731, 2008). The eAG is not equivalent to a fasting glucose. Blood 10/21/2022 11:1 0 AM CDT 10/21/2022 11:32 AM CDT Cinthia Franz MD LAB BLOOD ORDERABLES F inal Result Performing Organization Address [facility] Co de Phone Number [facility] [address] [employer] [place], [place] [phone] * Screening Mammogram Bilateral W Ivan (12/17/2021 8:49 AM CDT) Anatomical Region Laterality Modality Breast Bilateral Mammography Impressions 12/17/2021 10:36 AM CDT BI-RADS ATLAS category (overall): 1 - Negative There is no mammographic evidence of malignancy. A 1 year screening mammogram is recommended. The patient has been or will be contacted. We recommend annual screening mammography for women at average risk of breast cancer beginning at age 40, based on guidelines of the [employer] (ACR Practice Parameter for the Performance of Screening and Diagnostic Mammography) and [employer]. For women with and elevated risk of breast cancer, please refer to the ACR Practice Parameter for specific screening recommendations. The patient will be entered into a reminder system with a target due date of 1 year for her next screening exam. Narrative 12/17/2021 10:36 AM CDT Screening Mammogram Bilateral W Ivan: 12/17/21 The study was acquired using full field digital technology and interpreted from soft copy. 2D digital mammographic views, as well as 3D digital tomosynthesis were performed in the CC and MLO projections. CLINICAL: Screening mammogram, encounter for. No relevant medical history has been documented for this patient. History of breast cancer in Sister, Maternal cousin, Paternal cousin. COMPARISONS: 10/11/2019 Screening Mammogram Bilateral W Ivan 10/08/2018 Screening Mammogram Bilateral W Ivan 10/07/2017 Screening Mammogram Bilateral W Ivan BREAST TISSUE: The breasts are heterogeneously dense, which may obscure small masses. FINDINGS: No suspicious masses, suspicious calcifications, or other suspicious findings are seen within either breast. There has been no suspicious change. Ck Posadas MD IMG MAMMO PROCEDURES Final Result from Last 3 Months or Most Recently Relevant to Health Maintenance Insurance MEDICARE [employer] S[employer]MENT MEDICARE [facility] Address: [address] [address] [employer] Advance Directives For more information, please contact: [phone] * Full Code (Latest Code Status on File) Date Activated Date Inactivated Comments 11/01/2022 3:33 PM 11/02/2022 4:38 PM Care Teams Laser Set Up Operator Relationship Specialty Start Date End Date Ck Posadas MD PCP - General 10/08/18
--- OUTSIDE RECORDS SUMMARY | 2024-12-21 00:57 | XMS_ITS | Encounter Summary ---
Author Organization [facility] Address [address] Attn: Epic Prelude ADT [facility] [address] Care Team Providers Care Hand Spray Operator Name Role Phone Ck Posadas MD Primary Care Provider Encounter Details Date Type Department Care Team (Late st Contact Info) Description 02/18/1994 Outpatient Historical Julio Burk MD [address] 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 Gender Identity Not on file Sexual Orientation Not on file documented as of this encounter Plan of Treatment Upcoming Encounters Date Type Department Care Team (Late Contact Info) Description 12/28/2024 8:30 AM CDT Office Visit [facility] - [facility] [address] [place] [address] Amanda Daley MD [address] [place] [address] 01/12/2025 9:15 AM CDT Office Visit [facility] Internal Medicine Medical [place] [address] [address] Ck Posadas MD [address] [place] [address] [address] [place] [address] 05/16/2025 9:15 AM CDT Office Visit [facility] Endocrinology [address] [facility] [address] [place] [address] Victor M Greco MD [address] [facility] [address] [place] [address] documented as of this encounter Visit Diagnoses Not on filedocumented in this encounter Additional Health Concerns Infection Onset Date Last Indicated Resolved Time R/O C. diff 03/11/2022 03/09/2022 03/11/2022 3:22 PM CDT documented as of this encounter Care Teams Hand Spray Operator Relationship Specialty Start Date End Date Ck Posadas MD [address] [place] [address] [address] [place], [place] [phone] PCP - General 12/10/07 documented as of this encounter
--- OUTSIDE RECORDS SUMMARY | 2024-12-21 00:57 | XMS_ITS | Encounter Summary ---
Author Organization [facility] Address [address] [place] [address] Care Team Providers Care Human Resources Partner Name Role Phone Ck Posadas MD Primary Care Provider [phone] Encounter Details Date Type Department Care Team (Late st Contact Info) Description 09/29/2007 Orders Only [facility] Internal Medicine Medical [place] A [facility] [address] [facility] [address] [place] [address] Ck Posadas MD [address] 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 TOBACCO USE Patient does not currently use tobacco. MEDICATIONS: RN/MA reviewed medications. CHIEF COMPLAINT Seen as a new patient to get established with the practice. HISTORY: HISTORY: V70.0-ROUTINE GENERAL MEDICAL EXAMINATION The patient is doing well with no specific complaints noted. The patient is here for a routine examination and to become established as a member of this practice. 300.00-ANXIETY The condition has improved. No complications noted from the medication presently being used. No recent laboratory work done. 242.90-HYPERTHYROIDISM hx of graves disease, many years ago, took tapazole for several years, last checked 5 years ago, no sx. CURRENT MEDICATION LIST: PAXIL ORAL TABLET 20 MG, 1 Every Day CALCIUM 600 ORAL TABLET 600 MG, 2qam 2qpm CENTRUM SILVER ORAL TABLET, 1 Every Day VITAMINS/MINERALS ORAL TABLET, 1 Every Day ROS: GENERAL: Normal activity and energy level, no change in appetite. No major weight gain or loss. No malaise, chills, fever, diaphoresis.. ENT: No hearing loss, epistaxis, hoarseness or dysphagia. No sinus congestion.. ENDOCRINE: No heat or cold intolerance, no excessive thirst.. CARDIAC: No chest pain, palpitations, orthopnea, dyspnea on exertion, or paroxysmal nocturnal dyspnea.. RESPIRATORY: No dyspnea, cough, hemoptysis or wheezing.. : No frequency, urgency, hematuria or dysuria.. GI: No abdominal pain, nausea, vomiting, diarrhea, constipation, melena, or hematochezia.. NEUROLOGIC: No weakness, dizziness, loss of consciousness, transient ischemic symptoms, or seizures. MUSCULOSKELETAL: . for several months has a trigger finger at night , fifth left. Mild pain in the day, no meds tried. SOCIAL HISTORY: TOBACCO USE: Has no significant smoking history. 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 EXERCISES: The patient exercises minimally. PHYSICAL EXAMINATION: CONSTITUTIONAL: GENERAL APPEARANCE: Healthy appearing patient in no distress. EARS, NOSE, MOUTH AND THROAT: EARS: Tympanic membranes shiny without retraction. Canals unremarkable. Hearing grossly normal. NOSE (AND SINUS): No abnormality of the nose or sinuses is noted. ORAL: Inspection of gums, lips, palate, and teeth normal. No scars, lesions, or masses. Oral mucosaunremarkable with non-inflamed posterior pharynx. NECK/THYROID: Trachea midline. No thyroid enlargement, tenderness, or mass. No supraclavicular or cervical adenopathy. RESPIRATORY: Clear to auscultation and percussion. Normal respiratory effort. CARDIOVASCULAR: CARDIAC: Regular rhythm. No murmurs, rubs, or gallops. ARTERIAL: No aortic bruits. EDEMA/VARICOSITIES OF EXTREMITIES: No edema or varicosities. LYMPHATICS: No lymphadenopathy in the neck, axillae, or groin. GASTROINTESTINAL: ABDOMEN: Soft, non-tender, without masses. Bowel sounds active. LIVER/SPLEEN/KIDNEY: No hepatosplenomegaly, tenderness or nodularity. Kidneys not palpable. MUSCULOSKELETAL EXAM: DIGITS/NAILS: left fif`1th finger tender along flexor tendon, cannot fully extend ASSESSMENT/PLAN: V70.0-ROUTINE GENERAL MEDICAL EXAMINATION ASSESSMENT: The patient is doing well and no distinct problems were identified on exam. LAB ORDERS: CLINICAL GUIDELINES: None. V77.1-SCREENING FOR DIABETES MELLITUS LAB ORDERS: Order number: [id number] Test Ordered: BASIC METABOLIC PANEL & GFR 1607 V81.0-SPECIAL SCREENING FOR CARDIOVASCULAR, RESPIRATORY, LAB ORDERS: Order number: [id number] Test Ordered: LIPID PANEL 1078 242.90-HYPERTHYROIDISM ASSESSMENT: treated and clinically euthyroid. V77.0-SCREEN FOR THYROID DISORDERS LAB ORDERS: Order number: [id number] Test Ordered: TSH (REFLEX FREE T4/FREE T3) 1727 727.03-TRIGGER FINGER ASSESSMENT: aleve 2 bid 5-7 days and extension stretching, may need to see ortho for injection. REPEAT VITAL SIGNS: BLOOD PRESSURE: 144/88. Right Arm Sitting HEALTH MAINTENANCE: LAST PAP DATE: 08-18. PAP SMEAR PROVIDER: roxanna. LAST MAMMOGRAM DATE: 08-18. LAST DATE COLONOSCOPY: nml. LAST BONE DENSITY DATE: 09-18. PREVENTIVE COUNSELING The patient was counseled regarding diet, regular sustained exercise for at least 30 minutes 3-4 times per week, screening procedures and recommended schedules for mammography, GI hemoccult testing, colonoscopy,cholesterol, thyroid and diabetes screening. RETURN VISIT : Patient instructed to return in 1 year. Electronically Signed by: Ck Posadas MD on Tuesday, October 02, 2007 documented in this encounter Plan of Treatment Upcoming Encounters Date Type Department Care Team (Late st Contact Info) Description 12/28/2024 8:30 AM CDT Office Visit [facility] Heart and Vascular - [facility] [address] [place] [address] Amanda Daley MD [address] [facility] [address] [place] [address] 01/12/2025 9:15 AM CDT Office Visit [facility] Internal Medicine Medical [place] A [place] [address] [facility] [address] [address] Ck Posadas MD [address] [facility] [address] [place], [place] [id number] 05/16/2025 9:15 AM CDT Office Visit [facility] Endocrinology [address] [facility] [address] [place] [address] Victor M Greco MD [address] [facility] [address], [place] [address] documented as of this encounter Visit Diagnoses Not on filedocumented in this encounter Additional Health Concerns Infection Onset Date Last Indicated Resolved Time R/O C. diff 03/11/2022 03/09/2022 03/11/2022 3:22 PM CDT documented as of this encounter Care Teams Human Resources Partner Relationship Specialty Start Date End Date Ck Posadas MD [address] [address] [place] [address] PCP - General 12/10/07 documented as of this encounter
--- OUTSIDE RECORDS SUMMARY | 2024-12-21 00:57 | XMS_ITS | Encounter Summary ---
Author Organization [facility] Address 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 Gender Identity Not on file Sexual Orientation Not on file documented as of this encounter Plan of Treatment Upcoming Encounters Date Type Department Care Team (Late st Contact Info) Description 12/28/2024 8:30 AM CDT Office Visit [facility] - [facility] [address] [place] [address] Amnada Daley MD [address] [facility] [address] [place] [address] 01/12/2025 9:15 AM CDT Office Visit [facility] Internal Medicine Medical [place] A [facility] [address] [facility] [address] [place] [address] Ck Posadas MD [address] [facility] [address] [place] [address] 05/16/2025 9:15 AM CDT Office Visit [facility] Endocrinology [address] [facility] [address] [place] [address] Victor M Greco MD [address] [facility] [address] [place] [address] documented as of this encounter Visit Diagnoses Diagnosis Esophageal reflux- Primary documented in this encounter Additional Health Concerns Infection Onset Date Last Indicated Resolved Time R/O C. diff 03/11/2022 03/09/2022 03/11/2022 3:22 PM CDT documented as of this encounter Care Teams Motor And Generator Brush Cutter Relationship Specialty Start Date End Date Ck Posadas MD [address] [place] [address] [address] [place] [address] PCP - General 12/10/07 documented as of this encounter
--- OUTSIDE RECORDS SUMMARY | 2024-12-21 00:57 | XMS_ITS | Encounter Summary ---
Author Organization [facility] Address 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 [address] [place] [address] Amanda Daley MD [address] [facility] [address] [place] [address] 01/12/2025 9:15 AM CDT Office Visit [facility] Internal Medicine Medical [place] A [facility] [address] [facility] [address] [place] [address] Ck Posadas MD [address] [facility] [address] [place] [address] 05/16/2025 9:15 AM CDT Office Visit [facility] Endocrinology [address] [facility] [address] [place] [address] Victor M Greco MD [address] [facility] [address] [place] [address] documented as of this encounter Visit Diagnoses Diagnosis Vomiting alone- Primary documented in this encounter Additional Health Concerns Infection Onset Date Last Indicated Resolved Time R/O C. diff 03/11/2022 03/09/2022 03/11/2022 3:22 PM CDT documented as of this encounter Care Teams Supervisor Fleshing Relationship Specialty Start Date End Date Ck Posadas MD [facility] [address] [place] [address] PCP - General 12/10/07 documented as of this encounter
--- OUTSIDE RECORDS SUMMARY | 2024-12-21 00:58 | XMS_ITS ---
Author Organization [facility] Address [address] [facility] [address] [place], [place] [address] Care Team Providers Care Thread Weaver Name Role Phone JUAN LOERA Primary Care Provider Unavailab Eloise Mancini Unavailable [phone] Lakia Melissa Unavailable [phone] ALLERGIES Allergen (clinical drug ingredient) Drug/Non Drug Allergy documented on EMR Reaction Allergy Type Onset Date Status duloxetine rash Drug Allergy Active RESULTS Component Value Reference Range Notes AST (SGOT) Reviewed date:06/02/2024 01:38:35 PM Interpretation: Performing Lab:Listen Edition [address] [facility] Phone - [phone], Director - [facility] Notes/Report: AST (SGOT) 26 0-40 IU/L Creatinine, Serum Reviewed date:06/02/2024 01:38:35 PM Interpretation: Performing Lab:Listen Edition [address] [facility], Phone - [phone], Director - [facility] Notes/Report: Creatinine 0.78 0.57-1.00 mg/dL eGFR 82 >59 mL/min/1.73 ALT (SGPT) Reviewed date:06/02/2024 01:38:35 PM Interpretation: Performing Lab:Listen Edition [address] [facility] Phone - [phone], Director - [facility] Notes/Report: ALT (SGPT) 28 0-32 IU/L CBC With Differential/Platel et Reviewed date:06/02/2024 01:38:35 PM Interpretation: Performing Lab:[facility], [address] [place] [address], Phone - [phone], Director - [facility] Notes/Report: WBC 5.0 3.4-10.8 x10E3/uL RBC 3.74 3.77-5.28 x10E6/uL Hemoglobin 10.9 11.1-15.9 g/dL Hematocrit 35.8 34.0-46.6 % MCV 96 79-97 fL MCH 29.1 26.6-33.0 pg MCHC 30.4 31.5-35.7 g/dL RDW 12.5 11.7-15.4 % Platelets 304 150-450 x10E3/uL Neutrophils 65 Not Estab. % Lymphs 20 Not Estab. % Monocytes 13 Not Estab. % Eos 1 Not Estab. % Basos 1 Not Estab. % Immature Cells Neutrophils (Absolute) 3.2 1.4-7.0 x10E3/uL Lymphs (Absolute) 1.0 0.7-3.1 x10E3/uL Monocytes(Absolute) 0.7 0.1-0.9 x10E3/uL Eos (Absolute) 0.1 0.0-0.4 x10E3/uL Baso (Absolute) 0.0 0.0-0.2 x10E3/uL Immature Granulocytes 0 Not Estab. % Immature Grans (Abs) 0.0 0.0-0.1 x10E3/uL NRBC Hematology Comments: Sed Rate - Westergren Reviewed date:06/02/2024 01:38:35 PM Interpretation: Performing Lab:[address], Phone - [phone], Director - [facility] Notes/Report: Sedimentation Rate-Westergren 12 0-40 mm/hr Rheumatoid Arthritis Factor Reviewed date:06/02/2024 01:38:35 PM Interpretation: Performing Lab:[address], Phone - [phone], Director - [facility] Notes/Report: Rheumatoid Factor (RF) 10.5 <14.0 IU/mL C-Reactive Protein, Quant Reviewed date:06/02/2024 01:38:35 PM Interpretation: Performing Lab:[address], Phone - [phone], Director - [facility] Notes/Report: C-Reactive Protein, Quant <1 0-10 mg/L Sjogren's Ab, Anti-SS-A/-SS- B Reviewed date:06/02/2024 01:38:35 PM Interpretation: Performing [facility], [address] [place] [address], Phone - [phone], Director - [facility] Notes/Report: Sjogren's Anti-SS-A <0.2 0.0-0.9 AI Sjogren's Anti-SS-B <0.2 0.0-0.9 AI CCP IgG Antibodies Reviewed date:06/02/2024 01:38:35 PM Interpretation: Performing Lab:[facility], [address] [place] [address], Phone - [phone], Director - [facility] Notes/Report: Anti-CCP Ab, IgG/IgA 8 0-19 units Negative <20 Weak positive 20 - 39 Moderate positive 40 - 59 Strong positive >59 MEDICATIONS Medication SIG (Take, Route, Frequency, Duration) Notes Start Date End Date Status potassium Active Tylenol Not-Taking traZODone Not-Taking FaBB Vitamin B Complex with Folic Acid 1 tab(s) orally once a day Not-Taking Vitamin D3 5000 intl units 1 tab(s) oral ly once a day Not-Taking ergocalciferol 50,000 intl units 1 cap(s) orally once a week Active hydroxychloroquine 200 mg 1 tab(s) orall y 2 times a day Active ALPRAZolam 0.5 mg 1 tab(s) orally 3 times a day Not-Taking Citracal Not-Taking sertraline 25 mg 1 tab(s) orally once a day Not-Taking Xarelto 20 mg 1 tab(s) orally once a day Active dilTIAZem 120 mg 1 tab(s) orally once a day Active atorvastatin 40 mg 1 tab(s) orally once a day Active Vitamin B12 Not-Taki ng losartan 50 mg 1 tab(s) orally once a day Active chlorthalidone 25 mg 1 tab(s) orally onc e a day Active PARoxetine 20 mg 1 tab(s) orally once a day Active VITAL SIGNS BMI 27.62 kg/m2 06/01/2024 Blood pressure systolic 110 mm Hg 06/01/20 24 Blood pressure diastolic 60 mm Hg 024 Heart Rate 68 /min 06/01/2024 Height 65 in 06/01/2024 Weight 166 lbs 06/01/2024 Encounters Encounter Location Date Provider [facility] [place], [place] [id number] 06/01/2024 Lakia Melissa Primary generalized (osteo)arthritis M15.0 ; Other tank terminal gauger (current) drug therapy Z79.899 and Xerostomia K11.7 ASSESSMENTS Encounter Date Diagnosis Assessment Notes Treatment Notes Treatment Clinical Notes 06/01/2024 Primary generalized (osteo)arthritis (ICD-10 - M15.0) 06/01/2024 Other nursing home (current) drug therapy (ICD-10 - Z79.899) 06/01/2024 Xerostomia (ICD-10 - K11.7) PLAN OF TREATMENT Medication Medication Name Sig Start Date Stop Date Notes potassium ergocalciferol 50,000 intl units 1 cap(s ) orally once a week hydroxychloroquine 200 mg 1 tab(s) orall y 2 times a day Xarelto 20 mg 1 tab(s) orally once a day dilTIAZem 120 mg 1 tab(s) orally once a day atorvastatin 40 mg 1 tab(s) orally once a day losartan 50 mg 1 tab(s) orally once a day chlorthalidone 25 mg 1 tab(s) orally onc e a day PARoxetine 20 mg 1 tab(s) orally once a day Next Appt Details Follow Up: 6 Months, Reason: Progress Notes * Examination Category Sub-Category [...] strength. No muscle atrophy Joint Exam Shoulders No swelling. No tenderness. NROM. Elbows No swelling. No tend erness. NROM., [...] nodes All DIPs Heberden's nodes pre sent All MTPs History and Physical Notes * HPI (History [...]
--- OUTSIDE RECORDS SUMMARY | 2024-12-21 00:58 | XMS_ITS | Clinical Summary ---
Author Organization [facility] Open [facility] Address [address] [facility] [place] [address] Care Team Providers Care Regional Sales Leader Name Role Phone Ck Posadas MD Primary Care Provider [phone] Source Comments [facility],non-[facility] Affiliates and Associated Physician Practices is amultiple site organization consisting of ambulatory clinics and hospital sitesin [place], [place], [place] and [place]. This disclosure is being madepursuant to the Care Everywhere program and may not contain all information available regarding this patient. Last updated 18.[facility] Allergies Active Allergy Reactions Criticality Noted Date Comments Linagliptin 04/05/2016 Other reaction(s): Other (See Comments) arthralgia Metformin Dizziness 12/14/2015 Dizzy, nausea regular release and extended release Medications * Be aware that medications may not be up to date on this document. Alwaysverify current medications with the patient. ALPRAZolam (XANAX) 0.5 MG tablet Take 0.5 mg by mouth nightly as needed 1 5 Active raloxifene (EVISTA) 60 MG tablet Take 60 mg by mouth once daily 5 Active ONETOUCH DELICA LANCETS 33G MISC Twice daily 6 Active calcium citrate-vitamin D (CITRACAL PLUS D) 315-200 MG-UNIT tablet Take 2 Tabs by mouth once daily Active hydroxychloroqu ine (PLAQUENIL) 200 MG tablet Take 1 Tab by mouth 2 times daily 60 Tab 5 6 Active folic acid-vit B6-vit B12 (TL RUIZ RX) 2.2-25-1 MG tablet Take 1 Tab by mouth once daily 90 Tab 1 12/19/201 6 Active predniSONE (DELTASONE) 2.5 MG tablet TAKE 3 TABLETS DAILY FOR INFLAMMATION 270 Tab 2 7 Active blood glucose (ONETOUCH VERIO) test strip daily before breakfast 100 Strip 4 7 Active vitamin D (CHOLECACIFEROL ) 5000 UNITS capsule Take 5,000 Units by mouth once daily Active PARoxetine (PAXIL) 20 MG tablet Take 20 mg by mouth once daily Active glipiZIDE (GLUCOTROL) 10 MG tabletIndicatio ns:Type 2 Diabetes Mellitus Take 1 tablet by mouth daily before breakfast Reasons: Type 2 Diabetes 90 tablet 2 8 Active Active Problems Problem Noted Date Diagnosed Date Controlled type 2 diabetes m ellitus without complication, without long-term current use of insulin 11/21/2016 Uncontrolled diabetes mellitus type 2 without co mplications 08/22/2016 Non morbid obesity due to excess calories 2016 Low serum vitamin D 08/22/2016 Medication monitoring encounter 07/25/2016 Rheumatoid arthritis of [facility] sites with 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 03/28/2015 Overview (06/18/2015): Myalgia and myositis 03/28/2015 Overview (05/11/2015): Insomnia 03/28/2015 Overview (05/11/2015): Other malaise and fatigue 03/28/2015 Depression 03/28/2015 Family History Medical History Relation Name Comments Diabetes Brother 1 jayden type 1 Cancer Father stomach, pancre atic Ulcers Father stomach Diabetes Mother Heart Failure Mother Hypertension Mother Diabetes Sister 1 hillary type 2 Breast Cancer at or under age 50 Sister 2 aaron Relation Name Status Comments Brother 1 jayden Alive Brother 2 Alive Brother 3 Alive Brother 4 Alive Father Mother Sister 1 hillary Alive Sister 2 aaron Alive Sister 3 Alive Sister 4 Alive Social History Tobacco Use Types Packs/Day Years Used Date Smoking Tobacco: Never Smokeless Tobacco: Never Alcohol Use Standard Drinks/Week Comments No 0 (1 standard drink = 0.6 oz pur e alcohol) Comments No Sex and Gender Information Value Date Recorded Sex Assigned at Not on file 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[employer] Gender Identity Not on file Sexual Orientation Not on file 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 on 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 Not on file Not on file Last Filed Vital Signs Vital Sign Reading Time Taken Comments Blood Pressure 158/70 12/30/2017 9:16 AM CDT Pulse 62 12/30/2017 9:16 AM CDT Temperature - - Respiratory Rate - - Oxygen Saturation 99% 12/30/2017 9:16 AM CDT Inhaled Oxygen Concentration - - Weight 87.8 kg (193 lb 9.6 oz) 12/30/2017 9:16 A M CDT Height 165.1 cm (5' 5 ) 12/30/2017 9:16 AM CDT Body Mass Index 32.22 12/30/2017 9:16 AM CDT Plan of Treatment Health Maintenance Due Date Last Done Comments COLOGUARD (AGES 45-75) - COLON CA SCREENING 1955 COLON MONITORING 1955 COLONOSCOPY - COLON CA SCREENING 1955 CT COLONOGRAPHY - COLON CA SCREENING 1955 Colorectal Cancer Screening 1955 FIT - COLON CA SCREENING 1955 FLEX SIG - COLON CA SCREENING 1955 MAMMOGRAM 1955 DTAP/TDAP/TD VACCINES (1 - Tdap) 1974 DIABETES-STATIN 1995 PNEUMOCOCCAL VACCINE 50+ (1 of 1 - PCV) 2005 ZOSTER VACCINE (1 of 2) 2005 DIABETES-HGB A1C 07/02/2018 12/30/2017, , 04/08/2017, Additional history exists DIABETES-SERUM CREATININE 11/14/20182017, 11/16/2016, 07/25/2016, Additional history exists DIABETES-FOOT EXAM WITH MONOFILAMENT 12/30/2018 12/30/2017 COVID-19 VACCINE ( - season) 2024 DEPRESSION SCREENING 08/11/2024 DIABETES - URINE PROTEIN SCREENING 08/11/2024 11/14/2017 INFLUENZA VACCINE (Season Ended) 2025 Respiratory Syncytial Virus (RSV) Vaccine Pt: or over 60 yrs (1 - 1-dose 75+ series) 2030 BONE DENSITY TESTING Completed 02/14/2015 HEPATITIS C SCREENING Completed 07/25/2016 HEPATITIS B VACCINE Aged Out No longe r eligible based on patient's age to complete this topic HIB VACCINE Aged Out No longer eligi ble based on patient's age to complete this topic HPV VACCINE Aged Out No longer eligi ble based on patient's age to complete this topic MENINGOCOCCAL (Group B) VACCINE SHARED DECISION-MAKING Aged Out No longer eligible based on patient's age to complete this topic MENINGOCOCCAL GROUPS A/C/Y/W VACCINE Aged Out No longer eligible based on patient's age to complete this topic Procedures Procedure Name Priority Date/Time Associated Diagnosis Comments HEMOGLOBIN A1C - POINT OF CARE (AMB) Routine 12/30/2017 9:16 AM CDT Controlled type 2 diabetes mellitus without complication, without long-term current use of insulin MICROALB/CREAT RATIO URINE RANDOM PANEL 11/14/2017 9:57 AM CDT Uncontrolled type 2 diabetes mellitus without complication, without long-term current use of insulin RENAL FUNCTION PANEL 11/14/2017 9:57 AM CDT Uncontrolled type 2 diabetes mellitus without complication, without long-term current use of insulin HEPATITIS C RNA QUANTITATIVE Routine 07/25/2016 11:34 AM VP [employer]FORMATION [employer]CHNOLOGY Rheumatoid arthritis of multiple sites with 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 Medication monitoring encounter Other malaise and fatigue DEXA BONE DENSITY AXIAL SKELETON Routine 02/14/2015 from Last 3 Months or Most Recently Relevant to Health Maintenance Results * HEMOGLOBIN A1C - POINT OF CARE (AMB) (12/30/2017 9:16 AM CDT) Hemoglobin A1c POCT 6.5 % QC Verified Yes Blood BLOOD SPECIMEN / Unknown 12/30/2017 9:16 AM CDT Michelle Jacobs MD LAB - POINT OF CARE OR DERABLES Final Result * MICROALB/CREAT RATIO URINE RANDOM PANEL (11/14/2017 9:57 AM CDT) Creatinine Urine 156 20 - 320 mg/dL [facility] Microalbumin Urine 0.7 mg/dL [facility] Comment: Reference Range Not established Microalbumin/Creat inine Ratio 4 <30 mcg/mg creat [facility] Comment: The ADA defines abnormalities in albumin excretion as follows: Category Result (mcg/mg creatinine) Normal <30 Microalbuminuria 30-299 Clinical albuminuria > OR = 300 The ADA recommends that at least two of three specimens collected within a 3-6 month period be abnormal before considering a patient to be within a diagnostic category. Test Performed at: [facility] [address] [place] [address] LENO MIRANDA DO,MPH 11/14/2017 9:57 AM CDT 11/14/2017 9:58 AM CDT Michelle Jacobs MD LAB - URINE CHEMISTRY ORDERABLES Final Result [facility] [address] [place] [address] * RENAL FUNCTION PANEL (11/14/2017 9:57 AM CDT) Glucose 96 65 - 99 mg/dL [facility] Comment: Fasting reference interval BUN 10 7 - 25 mg/dL [facility] Creatinine 0.70 0.50 - 0.99 mg/dL [facility] Comment: For patients >49 years of age, the reference limit for Creatinine is approximately 13% higher for people identified as -Micronesian. eGFR by MDRD 93 > OR = 60 mL/min/1 .73m2 [facility] eGFR by MDRD 108 > OR = 60 mL/min/1 .73m2 [facility] BUN/Creatinine Ratio NOT APPLICABLE 6 - 22 (calc) [facility] Sodium 141 135 - 146 mmol/L [facility] Potassium 4.1 3.5 - 5.3 mmol/L [facility] Chloride 105 98 - 110 mmol/L [facility] CO2 30 20 - 31 mmol/L [facility] Calcium 9.4 8.6 - 10.4 mg/dL [facility] Phosphorus 3.9 2.5 - 4.5 mg/dL [facility] Albumin 4.1 3.6 - 5.1 g/dL [facility] Comment: Test Performed at: [facility] [address] [place] [address] LENO MIRANDA DO,MPH 11/14/2017 9:57 AM CDT 11/14/2017 9:58 AM CDT Michelle Jacobs MD LAB - CHEMISTRY ORDERA BLES Final Result Performing Organization Address [facility] de Phone Number [facility] [address] [place] [phone] * HEPATITIS C RNA QUANTITATIVE PCR (07/25/2016 11:34 AM [employer]CHN[employer]) Hepatitis C Virus RNA, Quantitative Real Time PCR <15 NOT DETECTED <15 IU/mL [facility] Hepatitis C Virus RNA, Quantitative Real Time PCR <1.18 NOT DETECTED <1.18 Log IU/mL [facility] See Note [facility] Comment: The analytical performance characteristics of this assay have been determined by [employer] The modifications have not been cleared or approved by the FDA. This assay has been validated pursuant to the CLIA regulations and is used for clinical purposes. This test was performed using the KD(R)AmpliPrep/ KD(R)TaqMan(R)HCV Test,v2.0. For more information on this test, go to: http://education.DataMotion/faq/EYU63g2 (This link is being provided for informational/ educational purposes only.) Test Performed at: [facility] [address] [place] [address] LENO MIRANDA DO,MPH Blood BLOOD SPECIMEN / Unknown 07/25/2016 11:34 AM VP IN[employer]CHNOLOGY 07/26/2016 2:41 AM VP INFORMATION TECHNOLOGY Result [facility] Bree Cota MD LAB - CHEMISTRY ORDERABLES Final Result Performing Organization Address [facility] de Phone Number [facility] [address] [place] [address] * DEXA BONE DENSITY AXIAL SKELETON (02/14/2015) Anatomical Region Laterality Modality Other Bree Cota MD DEXA ORDERABLES Final Resul t from Last 3 Months or Most Recently Relevant to Health Maintenance Insurance [facility] Care Teams Regional Sales Leader Relationship Specialty Start Date End Date Ck Posadas MD PCP - General Internal Medicine 02/20/15
--- OUTSIDE RECORDS SUMMARY | 2024-12-21 00:58 | XMS_ITS | Patient Health Record ---
Author Organization [facility] Address [address] [facility] [address] [place], [place] [address] Care Team Providers Care Master Fisher Name Role Phone JUAN LOERA Primary Care Provider Unavailab Eloise Mancini Unavailable [phone] Lakia Melissa Unavailable [phone] ALLERGIES Allergen (clinical drug ingredient) Drug/Non Drug Allergy documented on EMR Reaction Allergy Type Onset Date Status duloxetine rash Drug Allergy Active RESULTS Component Value Reference Range Notes AST (SGOT) Reviewed date:06/02/2024 01:38:35 PM Interpretation: Performing Lab:[facility], Phone - [phone], Director - [facility] Notes/Report: AST (SGOT) 26 0-40 IU/L Creatinine, Serum Reviewed date:06/02/2024 01:38:35 PM Interpretation: Performing Lab:[facility], Phone - [phone], [facility] Notes/Report: Creatinine 0.78 0.57-1.00 mg/dL eGFR 82 >59 mL/min/1.73 ALT (SGPT) Reviewed date:06/02/2024 01:38:35 PM Interpretation: Performing Lab:[facility] [place], Phone - [phone], Director - [facility] Notes/Report: ALT (SGPT) 28 0-32 IU/L CBC With Differential/Platel et Reviewed date:06/02/2024 01:38:35 PM Interpretation: Performing Lab:[facility], Phone - [phone], [facility] Notes/Report: WBC 5.0 3.4-10.8 x10E3/uL RBC 3.74 [...] Westergren Reviewed date:06/02/2024 01:38:35 PM Interpretation: Performing Lab:[facility], Phone - [phone], Director - [facility] Notes/Report: Sedimentation Rate-Jacksonergren 12 0-40 mm/hr Rheumatoid Arthritis Factor Reviewed date:06/02/2024 01:38:35 PM Interpretation: Performing Lab:[facility], Phone - [phone], Director - [facility] Notes/Report: Rheumatoid Factor (RF) 10.5 <14.0 IU/mL C-Reactive Protein, Quant Reviewed date:06/02/2024 01:38:35 PM Interpretation: Performing Lab:[facility] [id number] [facility], Phone - [phone], [facility] Notes/Report: C-Reactive Protein, Quant <1 0-10 mg/L Sjogren's Ab, Anti-SS-A/-SS- B Reviewed date:06/02/2024 01:38:35 PM Interpretation: Performing Lab:[facility], Phone - [phone], Director - [facility] Notes/Report: Sjogren's Anti-SS-A <0.2 0.0-0.9 AI Sjogren's Anti-SS-B <0.2 0.0-0.9 AI CCP IgG Antibodies Reviewed date:06/02/2024 01:38:35 PM Interpretation: Performing Lab:[address], Phone - [phone], [facility] - [facility] Notes/Report: Anti-CCP Ab, IgG/IgA 8 0-19 units Negative <20 Weak positive 20 - 39 Moderate positive 40 - 59 Strong positive >59 CBC With Differential/Platel et Reviewed date:12/07/2024 10:22:50 AM Interpretation: Performing Lab:[facility], Phone - [phone], Director - [facility] Notes/Report: WBC 6.1 3.4-10.8 x10E3/uL RBC 3.86 [...] Westergren Reviewed date:12/07/2024 08:16:49 AM Interpretation: Performing Lab:[facility], Phone - [phone], Director - [facility] Notes/Report: Sediment[facility] 4 0-40 mm/hr C-Reactive Protein, Quant Reviewed date:12/07/2024 08:16:52 AM Interpretation: Performing Lab:[facility] [address], Phone - [phone], Director - [facility] Notes/Report: C-Reactive Protein, Quant <1 0-10 mg/L Comp. Metabolic Panel (14) Reviewed date:12/07/2024 10:23:05 AM Interpretation: Performing Lab:[facility] [place], [address] [place] [address], Phone - [phone], Director - [facility] Notes/Report: Glucose 312 70-99 mg/dL BUN [...] ALT (SGPT) 27 0-32 IU/L REASON FOR REFERRAL No Information MEDICATIONS Medication SIG (Take, Route, Frequency, Duration) Notes Start Date End Date Status ergocalciferol 50,000 intl units 1 cap(s) orally once a week Active Jardiance 25 mg 1 tab(s) orally once a day (in the morning) Active Vitamin B12 1000 mcg 1 tab(s) orally onc e a day Active PARoxetine 20 mg 1 tab(s) orally once a day Active potassium Active chlorthalidone 25 mg 1 tab(s) orally onc e a day Active losartan 50 mg 1 tab(s) orally once a day Active atorvastatin 40 mg 1 tab(s) orally once a day Active dilTIAZem 120 mg 1 tab(s) orally once a day Active hydroxychloroquine 200 mg 1 tab(s) orall y once a day Active Xarelto 20 mg 1 tab(s) orally once a day Active iron oral Active SOCIAL HISTORY Sex Assigned At : Social History Observation Description Sex Assigned At Unknown PROBLEMS Problem Type ICD Code Onset Dates Problem Status W/U Status Risk SNOMED Code Notes Problem Other bed bug exterminator (current) drug therapy (Z79.899) Active confirmed 681012886 Problem Rheumatoid factor positive (R76.8) Active confirmed 350835865 Problem Neck pain (M54.2) Active confirmed 8168 0005 Problem Primary generalized (osteo)arthritis (M15.0) Active confirmed 734677695 Problem Dorsalgia, unspecified (M54.9) Active confirmed 527279128 Problem Iron deficiency anemia, unspecified iron deficiency anemia type (D50.9) Active confirmed 77600982 Problem Cervical spondylosis (M47.812) Active confirmed 582121622 Problem Osteoporosis, unspecified osteoporosis type, unspecified pathological fracture presence (M81.0) Active confirmed 58042659 Problem Myalgia (M79.10) Active confirmed 42744 001 VITAL SIGNS Heart Rate 77 /min 12/06/2024 Blood pressure diastolic 61 mm Hg 12/06/2024 Height 65 in 12/06/2024 Blood pressure systolic 116 mm Hg 12/06/2024 Weight 143 lbs 12/06/2024 BMI 23.79 kg/m2 12/06/2024 Encounters Encounter Location Date [facility] [address] [place], [place] [phone] 05/25/2024 Lakia Melissa [facility], [address] [place] [address], [address] [place], [place] [id number] 06/01/2024 Lakia Melissa Primary generalized (osteo)arthritis M15.0 ; Other bed bug exterminator (current) drug therapy Z79.899 and Xerostomia K11.7 [facility] [address] [place] [address], [address] [place], [place] [phone] 12/06/2024 Eloise Gage Primary generalized (osteo)arthritis M15.0 ; Other bed bug exterminator (current) drug therapy Z79.899 and Xerostomia K11.7 [facility] [address] [place], [place] [phone] 12/06/2024 Eloise Gage Primary generalized (osteo)arthritis M15.0 ASSESSMENTS Encounter Date Diagnosis Assessment Notes Treatment Notes Treatment Clinical Notes 06/01/2024 Other long-term (current) drug therapy (ICD-10 - Z79.899) 06/01/2024 Primary generalized (osteo)arthritis (ICD-10 - M15.0) 12/06/2024 Other bed bug exterminator (current) drug therapy (ICD-10 - Z79.899) 12/06/2024 Primary generalized (osteo)arthritis (ICD-10 - M15.0) 12/06/2024 Primary generalized (osteo)arthritis (ICD-10 - M15.0) 06/01/2024 Xerostomia (ICD-10 - K11.7) 12/06/2024 Xerostomia (ICD-10 - K11.7) PLAN OF TREATMENT Pending Test Test Name Order Date Sed Rate (IH) 03/17/2020 CBC With Differential/Platelet Sed Rate - Westergren 04/30/2021 Comp. Metabolic Panel (14) 04/30/2021 AST (IH) 03/17/2020 ALT (IH) 03/17/2020 Creatinine (IH) 03/17/2020 X ray : Hand left- outside order 019 X ray : Hand right- outside order 2018 X ray : Spines, cervical- outside order 04/09/2022 X ray : Spines, cervical- outside order 04/20/2019 X ray : Spines, cervical- outside order 12/06/2024 Eye exam - Plaquenil 04/20/2019 Vectra DA(DO NOT USE) 04/01/2022 X ray : Shoulder, left- outside order X ray : Shoulder, left- outside order X ray : Shoulder, right- outside order 0 12/06/2024 X ray : Shoulder, right- outside order 0 04/01/2022 -Xray slip given 04/09/2022 X ray : Knee, right 2 views- outside ord er 04/01/2022 X ray : Knee, left 2 views- outside orde r 04/01/2022 Insurance Providers Payer Name Payer Address Payer Phone Subscriber Number Group Number Insured Name Patient Relationship to Insured Coverage Start Date Coverage End Date MEDICARE [address] [address] [place] [address] [id number] Melissa Espinoza Self - patient is the insured 0 [employer] [facility] [address] [address] [place] [address] [id number] plan g Melissa Espinoza Self - patient is the insured 0 MEDICAL (GENERAL) HISTORY Medical History History ICD Code RUIZ bruises easily diabetes anemia depression thyroid disease anxiety chest pain swelling of ankles/feet bowel changes diarrhea indigestion Hot Flashes rapid heartbeat varicose veins constipation difficulty sleeping Afib Surgical History Surgery Date(Month/Year) kyaw rodriguez 04/2024 Knee 2017 Hospitalization History Reason Date(Month/Year) Afib 08/2023 knee replacement left 10/31 Plantar Facialectomy left Gastric bypass 2003 Knee Left 2012 Knee Right 2011 broken left wrist 2013
--- OUTSIDE RECORDS SUMMARY | 2024-12-21 00:58 | XMS_ITS | Referral Summary ---
Author Organization [facility] Address [address] [place] [address] Care Team Providers Care Gear Hobber Name Role Phone Ck Posadas MD Primary Care Provider [phone] Allergies Active Allergy Reactions Criticality Noted Date [...] 1 3 Active cyanocobalamin/ folic acid (vitamin A73-zcmqa acid) 1,000-400 mcg lozenge Active folic acid-vit [...] two tablets (100mg) once daily. 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 Gender Identity Not on file Sexual Orientation Not on file Last Filed Vital Signs Vital Sign Reading Time Taken Comments Blood Pressure 158/79 07/01/2023 8:44 AM BETTING AGENCY COUNTER CLERK Pulse 52 07/01/2023 8:44 AM BETTING AGENCY COUNTER CLERK Temperature 36.6 C (97.9 F) 11/02/2022 7:32 AM CDT Respiratory Rate 16 11/02/2022 7:32 AM CDT Oxygen Saturation 96% 07/01/2023 8:44 AM BETTING AGENCY COUNTER CLERK Inhaled Oxygen Concentration - - Weight 81.2 kg (179 lb) 07/01/2023 8:44 AM BETTING AGENCY COUNTER CLERK Height 165.1 cm (5' 5 ) 11/01/2022 10:36 AM CDT Body Mass Index 29.79 11/01/2022 10:36 AM CDT Plan of Treatment Not on file Medical Devices Implanted Type Area Coagulating Bath Mixer Device Identifier Shelf Expiration Date Model / Serial / Lot [employer] Simplex P Full Dose Radiopaque Preblend Cement Bone Tobramycin 6197-9-010 - Sna - [id number] Implanted:Qty: 1 on 11/01/2022 by Cinthia Franz MD at [facility] Bone Cement Left: Knee [employer] 03/10/2024 6197-9-0 10 / NA / [id number] [employer] Simplex P Full Dose Radiopaque Preblend Cement Bone Tobramycin 6197-9-010 - Sna - [id number] Implanted:Qty: 1 on 11/01/2022 by Cinthia Franz MD at [facility] Bone Cement Left: Knee [employer] 03/10/2024 6197-9-0 10 / NA / [id number] [employer] Triathlon Cemented Total Stabilize Knee 2 [place] Baseplate 5521-B-200 - Sna - [id number] Implanted:Qty: 1 on 11/01/2022 by Cinthia Franz MD at [facility] Other - see comments Left: Knee [employer] [id number] 06/30/2027 5521-B-2 00 / NA / [id number] [employer] Triathlon Cruciate Retaining Cemented Knee Left 2 Component 5510-F-201 - Sna - [id number] Implanted:Qty: 1 on 11/01/2022 by Cinthia Franz MD at [facility] Other - see comments Left: Knee [employer] [id number] 07/17/2026 5510-F-2 / / [id number] [employer] Triathlon 11mm Bearing Condylar Stabilize Knee 2 Insert Tibial 4022-K-080-E - Sna - [id number] Implanted:Qty: 1 on 11/01/2022 by Cinthia Franz MD at [facility] Other - see comments Left: Knee [employer] [id number] 02/02/2027 5531-G-2 11-E / NA / [id number] Procedures Procedure Name Priority Date/Time Associated Diagnosis Comments EGFR Routine 11/02/2022 3:54 AM CDT HEMOGLOBIN A1C Routine 10/21/2022 11:10 AM CDT Primary osteoarthritis of left knee Type 2 diabetes mellitus without complication, unspecified whether intermission coordinator insulin use (HCC) SCREENING MAMMOGRAM BILATERAL W SCARLETT Schedule Routine, Read Routine (OP Routine) 12/17/2021 8:49 AM CDT Screening mammogram, encounter for from Last 3 Months or Most Recently Relevant to Health Maintenance Results * eGFR (11/02/2022 3:54 AM CDT) eGFR 103 mL/min/1. 73 m2 REBECCA GARCIACH Comment: Interpretive Data Reference Interval Normal >/= 90 mL/min/1.73m2 Mildly decreased* 60 - 89 mL/min/1.73m2 Mildly to moderately decreased 45 - 59 mL/min/1.73m2 Moderately to severely decreased 30 - 44 mL/min/1.73m2 Severely decreased 15 - 29 mL/min/1.73m2 Kidney Failure < 15 mL/min/1.73m2 *Relative to young adult level Estimated glomerular filtration rate is determined by the 2020 CKD-EPI equation recommended by the National Kidney [...] ORDERABLES Fi nal Result Performing Organization Address [facility] de Phone Number REBECCA BJ[facility] [address] [employer] [place] [address] * (ABNORMAL) Hemoglobin A1c (10/21/2022 11:10 AM CDT) Hgb A1C 6.6(H) 4.0 - 5.6 % REBECCA GARCIA Estimated Average Glucose 143 mg/dL REBECCA LOCKETT Comment: The ADA recommends reporting an estimated Average Glucose (eAG) with all Hemoglobin A1c results using the equation derived from a study of 507 normal and diabetic adults. Minority populations were underrepresented and children were not included. (Diabetes Care 31:9538-2767, 2008). The eAG is not equivalent to a fasting glucose. Blood 10/21/2022 11:1 0 AM CDT 10/21/2022 11:32 AM CDT Cinthia Franz MD LAB BLOOD ORDERABLES F inal Result Performing Organization Address [facility] de Phone Number BANNERNER B[facility] [address] [employer] [place] [address] * Screening Mammogram Bilateral W Scarlett (12/17/2021 8:49 AM CDT) Anatomical Region Laterality [...] age 40, based on guidelines of the [place] [employer] (ACR Practice Parameter for the Performance of Screening and Diagnostic Mammography) and [place] [employer]. For women with and elevated risk of breast cancer, please refer to the ACR Practice Parameter for specific screening recommendations. The patient will be entered into a reminder system with a target due date of 1 year for her next screening exam. Narrative 12/17/2021 10:36 AM CDT Screening Mammogram Bilateral W Scarlett: 12/17/21 The study was acquired using full [...] cousin. COMPARISONS: 10/11/2019 Screening Mammogram Bilateral W Scarlett 10/08/2018 Screening Mammogram Bilateral W Scarlett 10/07/2017 Screening Mammogram Bilateral W Scarlett BREAST TISSUE: The breasts are heterogeneously dense, which may obscure small masses. FINDINGS: No suspicious masses, suspicious calcifications, or other suspicious findings are seen within either breast. There has been no suspicious change. Ck Posadas MD IMG MAMMO PROCEDURES Final Result from Last 3 Months or Most Recently Relevant to Health Maintenance Insurance MEDICARE A[employer]NA SENIOR SUPPLEMENT MEDICARE [facility] Address: [address] [address] [employer] SENIOR SUPPLEMENT Advance Directives For more information, please contact: [phone] * Full Code (Latest Code Status on File) Date Activated Date Inactivated Comments 11/01/2022 3:33 PM 11/02/2022 4:38 PM Care Teams Gear Hobber Relationship Specialty Start Date End Date Ck Posadas MD PCP - General 10/08/18
--- OUTSIDE RECORDS SUMMARY | 2024-12-21 00:58 | XMS_ITS | Continuity of Care Document ---
Author Organization [facility] Address [address] [place] [address] [place] [phone] Phone Care Team Providers Care Aircrewman Name Role Phone Nish LAM FACS, David Unavailable Unavailab le Allergies, Adverse Reactions, Alerts Substance Reaction Status Criticality No Known Allergies Active No Inform ation Medications Medication Instructions Dosage Effective Dates (start - stop) Status Comments Jardiance 25 mg tablet take 1 tablet by oral route every day in the morning 25 MG - Active Citracal Regular 250 mg (as citrate)-5 mcg (200 unit) tablet take 1 capsule by oral route every day 1 capsule - Active Iron (ferrous sulfate) 325 mg (65 mg iron) tablet take 1 tablet by oral route every day 325 MG - Active losartan 50 mg tablet take 1 tablet by oral route every day 50 MG - Active diltiazem ER 120 mg capsule,extended release 12 hr take 1 capsule by oral route 2 times every day 120 MG - Active Xarelto 20 mg tablet take 1 tablet by oral route every day with the evening meal 20 MG - Active hydroxychloroquine 200 mg tablet take 1 tablet by oral route every day 200 MG - Active paroxetine 10 mg tablet take 1 tablet by oral route every day 10 MG - Active Vitamin D2 1,250 mcg (50,000 unit) capsule take 1 by oral route every day 1 - Active atorvastatin 10 mg ORAL TABLET - Active chlorthalidone 25 mg tablet take 1 tablet by oral route every day 25 MG - No Longer Active potassium acetate 2 mEq/mL intravenous solution infuse (40MEQ/H) by continuous infusion route 40 MEQ/H - No Longer Active Tresiba FlexTouch U-100 insulin 100 unit/mL (3 mL) subcutaneous pen inject by subcutaneous route as per insulin protocol 0.00 - No Longer Active Procedures Procedure Date No Charge Refraction Fundus Photography W/ Report Office/outpatient Visit, Est No Charge GDX Retina Fundus Photography W/ Report No Charge Refraction Office/outpatient Visit, Est No Charge Refraction Corneal Pachymetry Fundus Photography W/ Report Office/outpatient Visit, Est No Charge Optomap Fundus Photos Oct-01-10 023 No Charge Refraction Oct [employer] Oct Corneal Pachymetry Oct- Corneal Topography Oct- SCODI, Retina Oct- Eye Exam, New Patient Oct Advance Directives Directive Yes / No Effective Date File Name Other Directive No N/A N/A WARNING:The information contained in this section is historical and is provided for information only and does not constitute a legal document or any assurance that the information is still accurate. Please verify the information with the josue of the legal document before using it for clinical purposes. Encounters Encounter Description Practice Location Reason(s) For Visit Diagnoses Date Provider Providers Copied on Encounter Office/outpa tient Visit, [facility], [address], [place], [place], [id number], [place] tel:[phone] [place] cataract check (chief complaint) Type 2 diabetes mellitus without complication sPeripheral pterygium, stationary, right eyeHigh Risk Medication useEndotheli al corneal dystrophy, bilateralCom bined forms of age-related cataract, bilateralChe mosis of right conjunctiva 5 Nish David. [address], [address], [place], [place], [address], . tel:[phone] Specialist: Eloise Gage MD, [address], [place], [address]. tel:[phone] ng Provider: Pieter Musa OD, [address], [place], [address]. tel:[phone] Office/outpa tient Visit, [facility], [address], [place], [place], [address], [place] tel:[phone] [place] 6 month Cataract check (chief complaint) Combined forms of age-related cataract, bilateralEnd othelial corneal dystrophy, bilateralHig h Risk Medication usePeriphera l pterygium, stationary, right eyeType 2 diabetes mellitus without complication s 4 Nish David. [address] [place] [address] [employer], [address], [place], [place], [address], [place]. tel:[phone] Eloise Gage MD.Referring Provider: Jersey Sharp OD, [address] [facility] [place], [address]. tel:[phone] Office/outpa tient Visit, [facility], [address] [place] [address] [address], [place], [place], [id number], [place] tel:[phone] [place] 6 month Cornea/Araceli ract Check (chief complaint) Type 2 diabetes mellitus without complication sCombined forms of age-related cataract, bilateralPer ipheral pterygium, stationary, right eyeEndotheli al corneal dystrophy, bilateralHig h Risk Medication use 4 [place] David. [address] [place], [place] [address], [address], [place], [place], [address], [place]. tel:[phone] Eloise Gage MD.Referring Provider: Jersey Sharp OD, [address] [facility] [employer] [place], [place], [address]. tel:[phone] [facility], [address] [place] [address] [address], [place], [place], [address], [place] tel:[phone] [place] Cataract and Cornea evaluation (chief complaint) Combined forms of age-related cataract, bilateralEnd othelial corneal dystrophy, bilateralPer ipheral pterygium, stationary, right eyeHigh Risk Medication useType 2 diabetes mellitus without complication s Oct-0 3 Nish David. [address] [employer], [address], [place], [place], [id number], [place]. tel:[phone] Specialist: Eloise Gage MD, [address], [place], [address]. tel:[phone] ng Provider: Jersey Sharp OD, 1 [facility], [place], [address]. tel:[phone] [facility], [address] [place], [place] [address], [place], [place], [address], tel:[phone] [place] Professional No Information Sep-2 3 Nish Hernandez. [address], [address], [place], [place], [address], [place]. tel:[phone] Specialist: Eloise Gage MD, [address], [place], [address]. tel:[phone] Family History Family Member Type Diagnosis Age At Onset Problem Family history of Corneal di sease Problem Family history of Diabetes salomón lowe Payers Payer name Insurance type Covered democrat ID Authoriza tion(s) [place] [id number] Aetna Mdcr Supp CI [id number] Social History Type Description Quantity Date Captured Comments Alcohol Use Details No Caffeine Use Details 1 cup per day Tobacco Use Status Current non-smoker Smoking Status Never smoker Non-Smoking Tobacco Use Details : No Details Available : No Details Available Sex Female Chief Complaint And Reason For Visit From encounter dated '12/10/2024 09:30'. cataract check (chief complaint). Description: The 69 year old patient presents for evaluation of cataracts in the right eye and left eye. H/o Cataracts OU, ?Fuchs' Dystrophy OU, and High risk medication. Pt reports being at regular eye doctor yesterday and was told she was ready for cataract surgery. Pt complains of more glare issues both during the day and at night. Pt complains that she is having more issues playing her board games due to the small print even with glasses on. Pt reports having problems with recognizing people from across the street or further distance. Denies pain/pressure, eyes feel tired. Denies flashes/floaters. NIDDMII: A1C: 6.5 Dr. Walters Reason For Referral Reason For Referral No Information Plan Of Treatment Date Type Action Status Appointment Melissa Kelly BOOKED Appointment Melissa Kelly BOOKED Appointment Melissa Kelly BOOKED Appointment Melissa Kelly BOOKED Appointment Melissa Kelly BOOKED Appointment Melissa Kelly BOOKED Patient Education Cataracts: Care Instruc tions completed History Of Present Illness Encounter Date Complaint History Of Prese nt Illness cataract check The 69 year old patient presents for evaluation of cataracts in the right eye and left eye. H/o Cataracts OU, ?Fuchs' Dystrophy OU, and High risk medication. Pt reports being at regular eye doctor yesterday and was told she was ready for cataract surgery. Pt complains of more glare issues both during the day and at night. Pt complains that she is having more issues playing her board games due to the small print even with glasses on. Pt reports having problems with recognizing people from across the street or further distance. Denies pain/pressure, eyes feel tired. Denies flashes/floaters. NIDDMII: A1C: 6.5 Dr. Walters 6 month Cataract check The 69 ye ar old patient presents for evaluation of 6 month Cataract check in the right eye and left eye. Pt has h/o Cataracts ou, Fuchs' ou, and High risk medication. Pt is NIDDM II followed by PCP. Pt's last HA1C unknown but last week blood sugar average 105. Pt is on 200 mg po qd Plaquenil for RA followed by Dr. Roth. Pt had stomach surgery about 8 weeks ago and since caused her blood sugar to spike. They ended up changing her DM meds and now seeing to be better controlled. It did also cause her vision to be much more blurred both distance and near. Pt. states she is having issues driving at night due to glare from headlights. 6 month Cornea/Cataract Check Th e 68 year old patient presents for evaluation of 6 month Cornea/Cataract Check in the right eye and left eye. Pt hx of Cataracts OU and Fuchs OU. Pt is DMII and followed by PCP, last A1C is unknown. Pt does not check BS at home. Pt takes Hydroxychloroquine 100mg for RA and is followed by Dr Gage. Pt states she is having a lot of blur and it has worsened since last visit 6 months ago.Pt states she is having difficulty reading small print even when wearing readers OU, pt is avoiding night driving due to poor vision OU, pt is finding bright lights very bothersome OU due to glare. Cataract and Cornea evaluation T he 68 year old patient presents for evaluation of Cataract and Cornea evaluation in the right eye and left eye. Referred by Dr. Sharp. Hx of Cataract OU and Fuchs' OU. Pt reports there has been a decrease in vision OD>OS x 2 years. Pt states she is having difficulty reading small print, filling out forms and doing small detailed work. Pt states she does not like to drive at night due to glare/halo's from headlights. NIDDM II does not check BS; A1c 6.6, managed by PCP. Pt takes Hydroxychloroquine 200mg PO QD for RA, managed by Dr. Gage. Functional Status Date Functional Assessmen t No Information Instructions Date Instruction Additional Infor rob Impression/Plan Impression/Plan Impression/Plan Impression/Plan Assessments Type Assessment Date assessment Type 2 diabetes mellitus without complications assessment Peripheral pterygium, stationary , right eye assessment High Risk Medication use 2024 assessment Endothelial corneal dystrophy, b ilateral assessment Combined forms of age-related ca taract, bilateral assessment Chemosis of right conjunctiva Ma Patient Care Teams Name Effective Dates (start - stop) Status Members No Information
--- OUTSIDE RECORDS SUMMARY | 2024-12-21 00:58 | XMS_ITS | Continuity of Care Document ---
Author Organization [facility] Address [address] [place] [address] Phone Care Team Providers Care Associate Store Leader Name Role Phone Gonzalo Daly MD Unavailable Unavailable Allergies, Adverse Reactions, Alerts Substance Reaction Status Criticality No Known Allergies Active No Inform ation Medications Medication Instructions Dosage Effective Dates (start - stop) Status Comments Evista 60 mg tablet - Active Paxil 40 mg tablet - Active FaBB 2.2 mg-25 mg-1 mg tablet - Active prednisone 10 mg tablet - Active methotrexate sodium 2.5 mg tablet take 1 tablet by oral route every 12 hours for 3 doses given as a course once weekly - Active carisoprodol 350 mg tablet - Active Vitamin D3 1,000 unit tablet - Active Citracal with Vitamin D Maximum 315 mg-250 unit tablet - Active Procedures Procedure Date POSTOP FOLLOW-UP VISIT POSTOP FOLLOW-UP VISIT POSTOP FOLLOW-UP VISIT OFFICE/OUTPATIENT VISIT NEW PREV VISIT NEW AGE 40-64 Advance Directives Directive Yes / No Effective Date File Name No Information Encounters Encounter Description Practice Location Reason(s) For Visit Diagnoses Date Provider Providers Copied on Encounter [facility] , [address] [facility], [place], [address], [place] tel:[phone] [facility] Fracture of left distal radius 4 Malika Sánhcez. [address] [place], [place], [id number] . tel: [phone] [facility] , [address], [place], [address], [place] tel:[phone] [facility] Fracture of left distal radius 7 4 Fissel Gonzalo. [address] , [place], [place], [address] . tel: [phone] [facility] , [address] [address], [place], [address], [place] tel:[phone] [facility] Fracture of left distal radius 8 4 Fissel Gonzalo. [address] , [place], [place], [address] . tel: [phone] OFFICE/OUTPA TIENT VISIT NEW [facility] , [address] [address], [place], [address], [place] tel:[phone] [facility] Fracture of left distal radius 4- 4 Fissel Gonzalo. [address] [facility] [address] , [place], [place], [address] . tel: [phone] Referring Provider: Ck Plummer, [address] [facility] [address], [place], [address] . tel:[phone] PREV VISIT NEW AGE 40-64 STRATEGY ANALYST [facility] [address], [place], [address], [place] tel:[phone] [facility] annual visit (chief complaint) Well Woman / Routine Web Services Architect/PapDisorder of bone and cartilage, unspecifiedFamil y Hx Breast CancerPostmenopa usal atrophic vaginitis 3-201 3 Junior Londono . [address], [place], [place], [address] . tel: [phone] Family History Family Member Type Diagnosis Age At Onset Problem (finding) Family history of malignant neoplasm of pancreas Problem (finding) Family history of heart disease Problem (finding) Family history of diabe sameera Problem (finding) Family history of hyper tension Payers Payer name Insurance type Covered democrat ID Authoriza tion(s) No Information Social History Type Description Quantity Date Captured Comments Alcohol Use Details Unknown Caffeine Use Details Unknown Tobacco Use Status No Information Smoking Status No Information Sex Female Chief Complaint And Reason For Visit No Information Reason For Referral Reason For Referral No Information Plan Of Treatment Date Type Action Status Referral Ordered: RADEX WRST COMPL MINIMUM 3 VIEWS LT ordered History Of Present Illness Encounter Date Complaint History Of Prese nt Illness No Information Functional Status Date Functional Assessmen t No Information Instructions Date Instruction Additional Infor mation Continue to work on ROM. WBAT to left wrist. Fu in 6 weeks. Related to Fracture of left distal radius Assessments Type Assessment Date assessment Fracture of left distal radius S Patient Care Teams Name Effective Dates (start - stop) Status Members No Information
--- OUTSIDE RECORDS SUMMARY | 2024-12-21 00:58 | XMS_ITS | Encounter Summary ---
Author Organization [facility] Address [address] [place] [address] Care Team Providers Care Machine Shorthand Reporter Name Role Phone Ck Posadas MD Primary Care Provider [phone] Encounter Details Date Type Department Care Team (Latest Contact Info) Description 12/10/2007 Outpatient Historical [facility] Ck Cortes MD [address] 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 Gender Identity Not on file Sexual Orientation Not on file documented as of this encounter Plan of Treatment Upcoming Encounters Date Type Department Care Team (Late st Contact Info) Description 12/28/2024 8:30 AM CDT Office Visit [facility] Heart and Vascular - [facility] [address] [address] [address] [facility] [address] [place] [address] Amanda Daley MD [address] [facility] [address] [place] [address] 01/12/2025 9:15 AM CDT Office Visit [facility] Internal Medicine Medical [place] [facility] [address] [facility] [address] [address] Ck Posadas MD [address] [place] [address] [address] [address] 05/16/2025 9:15 AM CDT Office Visit [facility] Endocrinology [address] [place] [address] [address] [place] [address] Victor M Greco MD [address] [facility] [address] [place] [address] documented as of this encounter Procedures Procedure Name Priority Date/Time Associated Diagnosis Comments BASIC METABOLIC PANEL Routine 12/10/2007 12:25 PM CDT documented in this encounter Results * BASIC METABOLIC PANEL (12/10/2007 12:25 PM CDT) CREATININE 0.62 0.51 - 0.95 mg/dL [facility] POTASSIUM 4.0 3.5 - 4.9 mmol/L [facility] BUN 9 6 - 20 mg/dL [facility] CHLORIDE 103 96 - 108 mmol/L [facility] GLUCOSE 90 65 - 99 mg/dL [facility] SODIUM 140 135 - 145 mmol/L [facility] CALCIUM 8.9 8.4 - 10.2 mg/dL [facility] CO2 28 22 - 30 mmol/L [facility] GFR, >60 >=60 mL/min/1.7 sq meter [facility] GFR >60 >=60 mL/min/1.7 sq meter [facility] Comment: Estimated GFR rate interpretative information for both Americans and non- Americans is available on the [facility] Intranet at: [email or web address] Select: Lab Policies and Procedures Select: Reference Ranges - GFR Blood specimen (specimen) 12/10/2007 12:25 PM CDT 12/10/2007 12:33 PM CDT Ck Posadas MD CHEMISTRY ORDERABLES Edited [facility] [address] [place] [address] documented in this encounter Visit Diagnoses Diagnosis Osteoporosis, unspecified documented in this encounter Additional Health Concerns Infection Onset Date Last Indicated Resolved Time R/O C. diff 03/11/2022 03/09/2022 03/11/2022 3:22 PM CDT documented as of this encounter Care Teams Machine Shorthand Reporter Relationship Specialty Start Date End Date Ck Posadas MD [address] [facility] [address] [place], [place] [id number] PCP - General 12/10/07 documented as of this encounter
--- OUTSIDE RECORDS SUMMARY | 2024-12-21 00:58 | XMS_ITS ---
Author Organization [facility] Address [address] [place], [place] [address] Care Team Providers Care Supervisor Boiler Repair Name Role Phone JUAN LOERA Primary Care Provider Unavailab Eloise Mancini Unavailable [phone] MEDICATIONS Medication SIG (Take, Route, Frequency, Duration) Notes Start Date End Date Status hydroxychloroquine 200 mg 1.5 tab(s) ora lly once a day for 30 days Active predniSONE 5 mg 6 tablets for 2 days then decrease by 1 tablet every 2 days until omar orally once a day for 12 days 12/06/2024 Active Encounters Encounter Location Date Provider Diagnosis [facility] [address], [facility] [address] [place], [place] [id number] 12/06/2024 Eloise Gage Primary generalized (osteo)arthritis M15.0 ASSESSMENTS Encounter Date Diagnosis Assessment Notes Treatment Notes Treatment Clinical Notes 12/06/2024 Primary generalized (osteo)arthritis (ICD-10 - M15.0) PLAN OF TREATMENT Medication Medication Name Sig Start Date Stop Date Notes hydroxychloroquine 200 mg 1.5 tab(s) ora lly once a day for 30 days predniSONE 5 mg 6 tablets for 2 days then decrease by 1 tablet every 2 days until omar orally once a day for 12 days 12/06/2024
--- OUTSIDE RECORDS SUMMARY | 2024-12-21 00:58 | XMS_ITS | Continuity of Care Document ---
Author Organization [facility] Address [address] [facility] [address] [place] [address] Phone Care Team Providers Care Healthcare Market Consultant Name Role Phone Mindi Hoff DPT Unavailable Unavailable Procedures Procedure Date Progress Note Therapeutic Activities Therapeutic Exercise Manual Therapy Therapeutic Exercise Manual Therapy Therapeutic Exercise Manual Therapy Therapeutic Activities Therapeutic Exercise Therapeutic Activities Therapeutic Exercise Doc neg elder mal no plan PRES/ABSN URINE INCON ASSESS PT Evaluation Moderate Complexity Therapeutic Exercise Therapeutic Activities Neuromuscular Re-Ed Therapeutic Exercise Manual Therapy Therapeutic Activities Neuromuscular Re-Ed Therapeutic Exercise Manual Therapy Therapeutic Activities Neuromuscular Re-Ed Therapeutic Exercise Manual Therapy Therapeutic Activities Therapeutic Exercise Neuromuscular Re-Ed Manual Therapy Therapeutic Activities Neuromuscular Re-Ed Therapeutic Exercise Manual Therapy Neuromuscular Re-Ed Therapeutic Exercise Manual Therapy Neuromuscular Re-Ed Therapeutic Exercise Manual Therapy Therapeutic Exercise Manual Therapy Neuromuscular Re-Ed Therapeutic Exercise Manual Therapy PT Evaluation Moderate Complexity Manual Therapy Therapeutic Exercise PT Re-evaluation Therapeutic Exercise Manual Therapy Therapeutic Exercise Neuromuscular Re-Ed Manual Therapy Therapeutic Exercise Manual Therapy Therapeutic Activities Therapeutic Exercise Therapeutic Activities Neuromuscular Re-Ed Manual Therapy Therapeutic Exercise Therapeutic Activities Neuromuscular Re-Ed Manual Therapy Therapeutic Exercise Therapeutic Activities Neuromuscular Re-Ed Manual Therapy Therapeutic Exercise Therapeutic Activities Neuromuscular Re-Ed Manual Therapy PT Evaluation Moderate Complexity Therapeutic Exercise Manual Therapy THERAPEUTIC EXERCISES NEUROMUSCULAR RE-ED MANUAL THERAPY FUNC ACTIVITY THERAPEUTIC EXERCISES NEUROMUSCULAR RE-ED MANUAL THERAPY FUNC ACTIVITY HOT/COLD PACK ELECTRIC STIMULATION UNATT THERAPEUTIC EXERCISES NEUROMUSCULAR RE-ED MANUAL THERAPY FUNC ACTIVITY HOT/COLD PACK ELECTRIC STIMULATION UNATT THERAPEUTIC EXERCISES NEUROMUSCULAR RE-ED MANUAL THERAPY FUNC ACTIVITY HOT/COLD PACK ELECTRIC STIMULATION UNATT THERAPEUTIC EXERCISES NEUROMUSCULAR RE-ED MANUAL THERAPY FUNC ACTIVITY HOT/COLD PACK ELECTRIC STIMULATION UNATT Progress Note THERAPEUTIC EXERCISES NEUROMUSCULAR RE-ED MANUAL THERAPY FUNC ACTIVITY THERAPEUTIC EXERCISES NEUROMUSCULAR RE-ED MANUAL THERAPY FUNC ACTIVITY HOT/COLD PACK ELECTRIC STIMULATION UNATT THERAPEUTIC EXERCISES NEUROMUSCULAR RE-ED MANUAL THERAPY FUNC ACTIVITY HOT/COLD PACK ELECTRIC STIMULATION UNATT THERAPEUTIC EXERCISES NEUROMUSCULAR RE-ED MANUAL THERAPY HOT/COLD PACK ELECTRIC STIMULATION UNATT THERAPEUTIC EXERCISES NEUROMUSCULAR RE-ED MANUAL THERAPY HOT/COLD PACK ELECTRIC STIMULATION UNATT THERAPEUTIC EXERCISES NEUROMUSCULAR RE-ED MANUAL THERAPY GAIT TRAINING 15 MIN HOT/COLD PACK ELECTRIC STIMULATION UNATT THERAPEUTIC EXERCISES MANUAL THERAPY GAIT TRAINING 15 MIN HOT/COLD PACK ELECTRIC STIMULATION UNATT PT EVALUATION THERAPEUTIC EXERCISES MANUAL THERAPY HOT/COLD PACK ELECTRIC STIMULATION UNATT Advance Directives Directive Yes / No Effective Date File Name No Information Encounters Encounter Description Practice Location Reason(s) For Visit Diagnoses Date Provider Providers Copied on Encounter [facility], [address] [facility] [address], [place], [place], [id number], [place] tel:[phone] [place] No Information 3 Luis Eduardo Obregon. [address] [place] [address], [address], [place], [address], [place]. tel:[phone] Referring Provider: Cinthia Franz, [address] [place] [address] [address], [place], [address]. tel:[phone] [address], [place], [place], [address], [place] tel:[phone] [place] No Information 3 Muehl Slim. [address] [place] [address], [address], [place], [place], [facility], [place]. tel:[phone] Referring Provider: Cinthia Franz, [address] [place] [address] [address], [place], [address]. tel:[phone] [place] [address], [place], [place], [id number], [place] tel:[phone] [place] No Information 3 Stirobert Obregon. [address] [place] [address], [address], [place], [facility], [place]. tel:[phone] Referring Provider: Cinthia Franz, [address] [place] [address] [address], [place], [address]. tel:[phone] [place] [address], [place], [place], [id number], [place] tel:[phone] [place] No Information 3 Stirobert Obregon. [address] [place] [address], [address], [place], [address], [place]. tel:[phone] Referring Provider: Cinthia Franz, [address] [place] [address] [address], [place], [address]. tel:[phone], [place], [place], [address], [place] tel:[phone] [place] No Information 3 Stirobert Obregon. [address] [place] [address], [address], [place], [address], [place]. tel:[phone] Referring Provider: Cinthia Franz, [address] [facility] [address], [place], [address]. tel:[phone] [address], [place], [place], [address], tel:[phone] [place] No Information Apr-1 2-202 3 Stief Mindi. [address] [place] [address], [address], [place], [facility], . tel:[phone] Referring Provider: Cinthia Franz, [address] [facility] [address], [place], [address]. tel:[phone] [address], [place], [place], [address], tel:[phone] [place] No Information Mar-1 2-202 0 Stief Mindi. [address] [place] [address], [address], [place], [facility], . tel:[phone] Referring Provider: Sveta Morales, [address] [facility] [address], [place], [address]. tel:[phone] [address], [place], [place], [address], tel:[phone] [place] No Information Mar-1 0-202 0 Stief Mindi. [address] [place] [address], [address], [place], [facility], . tel:[phone] Referring Provider: Sveta Morales, [address] [facility] [address], [place], [address]. tel:[phone] [address], [place], [place], [address], tel:[phone] [place] No Information Mar-0 5-202 0 Stief Mindi. [address] [place] [address], [address], [place], [facility], . tel:[phone] Referring Provider: Sveta Morales [address] [facility] [address] [address], [place], [address]. tel:[phone], [place], [place], [address], tel:[phone] [place] No Information 0 Luis Eduardo Obregon. [address] [place] [address], [address], [place], [facility], . tel:[phone] Referring Provider: Sveta Morales [address] [facility] [address], [place], [address]. tel:[phone] [place], [place] [address], [place], [place], [address], tel:[phone] [place] No Information 0 Luis Eduardo Obregon. [address] [place] [address], [address], [place], [facility], . tel:[phone] Referring Provider: Bobby Hdez[address] [facility] [facility] [facility] [address] [address], [place], [address]. tel:[phone] [place], [place] [address], [place], [address], tel:[phone] [place] No Information 0 Luis Eduardo Obregon. [address] [place] [address], [address], [place], [facility], . tel:[phone] Referring Provider: Bobby H[address] [facility] [address], [place], [address]. tel:[phone] [place], [place] [address], [place], [address], tel:[phone] [place] No Information 0 Nazario Chavez. [address] [place] [address], [address], [place], [facility], . tel:[phone] Referring Provider: Sveta Morales [address] [facility] [address] [address], [place], [address]. tel:[phone], [place], [place], [address], [place] tel:[phone] [place] No Information 0 Mackenzie Coronado. . Referring Provider: Sveta Morales, [address] [facility] [address], [place], [address]. tel:[phone] [facility], [place], [place], [address], tel:[phone] [place] No Information 0 Luis Eduardo Obregon. [address] [facility], [address], [place], [address], . tel:[phone] Referring Provider: Sveta Morales, [address] [facility] [address], [place], [address]. tel:[phone] [facility], [place], [place], [address], tel:[phone] [place] No Information 0 Luis Eduardo Obregon. [address] [facility], [address], [place], [address], . tel:[phone] Referring Provider: Sveta Morales, [address] [facility] [address], [place], [address]. tel:[phone] [facility], [place], [place], [address], [place] tel:[phone] [place] No Information 9 Niederhoffer Ivonne. . [facility], [place], [place], [address], [place] tel:[phone] [place] No Information 9 Niederhoffer Ivonne. . [facility], [place], [place], [address], [place] tel:[phone] [place] No Information 9 Niederhoffer Ivonne. . [facility], [place], [place], [address], [place] tel:[phone] [place] No Information 9 Stief Mindi. [address] [place] [address], [address], [place], [address], . tel:[phone] [place] [address] [facility] [address], [place], [place], [address], tel:[phone] [place] No Information 9 Stief Mindi. [address] [place] [address], [address], [place], [address], [place]. tel:[phone] [place] [address] [address], [place], [place], [address], tel:[phone] [place] No Information 9 Stief Mindi. [address] [place] [address], [facility] [address], [place], [address], . tel:[phone] [place] [address] [address], [place], [place], [address], [place] tel:[phone] [place] Muscle weakness (generalized)Sti ffness of left shoulder, not elsewhere classifiedOther specified extrapyramidal and movement disordersPain in left shoulderBursitis of left shoulder 9 Stief Mindi. [address] [place] [address], [facility] [address], [place], [address], [place]. tel:[phone] [place] [address] [address], [place], [place], [address], [place] tel:[phone] [place] Muscle weakness (generalized)Sti ffness of left shoulder, not elsewhere classifiedOther specified extrapyramidal and movement disordersPain in left shoulderBursitis of left shoulder 2 9 Stief Mindi. [address] [place] [address], [address], [place], [address], [place]. tel:[phone] [place], [place] [address] [address], [place], [place], [address], [place] tel:[phone] [place] No Information 7 Stief Mindi. [address] [facility], [address], [place], [facility], . tel:[phone] Referring Provider: Jeramie Broderick, [address] [place] [address] [address], [place], [address]. tel:[phone], [place], [place], [address], [place] tel:[phone] [place] No Information Luis Eduardo Obregon. [address] [place] [address], [address], [place], [facility], . tel:[phone] Referring Provider: Jeramie Broderick, [address] [place] [address] [address] [facility], [place], [address]. tel:[phone], [place], [place], [address], [place] tel:[phone] [place] No Information Karirobert Obregon. [address] [place] [address], [address], [place], [facility], . tel:[phone] Referring Provider: Jeramie Broderick, [address] [place] [address] [address] [facility], [place], [address]. tel:[phone], [place], [place], [address], [place] tel:[phone] [place] No Information Silvino Coronado. . Referring Provider: Jeramie Broderick, [address] [place] [address] [address] [facility], [place], [address]. tel:[phone] [address], [place], [place], [address], [place] tel:[phone] [place] No Information Nayehogris Watersa. . Referring Provider: Jeramie Broderick, [address] [place] [address] [address] [facility], [place], [address]. tel:[phone] [address], [place], [place], [address], tel:[phone] [place] No Information Aug-0 6-201 7 Stief Mindi. [address] [place] [address], [address], [facility], . tel:[phone] Referring Provider: Jeramie Broderick, [address] [place] [address] [place] [address], [address]. tel:[phone], [id number], tel:[phone] [place] No Information Aug-0 3-201 7 Stief Mindi. [address] [place] [address], [address] [place] [address], [facility], . tel:[phone] Referring Provider: Jeramie Broderick, [address] [place] [address] [place] [address], [facility]. tel:[phone], [id number], tel:[phone] [place] No Information Jul-3 0-201 6 Stief Mindi. [address] [place] [address], [address], [place], [facility], . tel:[phone] Referring Provider: Jeramie Broderick, [address] [place] [address] [place] [address], [facility]. tel:[phone], [id number], tel:[phone] [place] No Information Jul-2 7-201 6 Stief Mindi. [address] [place] [address], [address], [place], [facility], . tel:[phone] Referring Provider: Jeramie Broderick, [address] [place] [address] [place] [address], [facility]. tel:[phone], [id number], tel:[phone] [place] No Information Dec-2 3-201 6 Stief Mindi. [address] [place] [address], [address], [place], [facility], . tel:[phone] Referring Provider: Jeramie Broderick, [address] [place] [address] [address] [facility], [place], [place], [facility]. tel:[phone], [id number], tel:[phone] [place] No Information 6 Stief Mindi. [address] [place] [address], [address], [place], [facility], . tel:[phone] Referring Provider: Jeramie Broderick, [address] [place] [address] [address] [facility], [place], [place], [facility]. tel:[phone], [id number], tel:[phone] [place] No Information 6 Stief Mindi. [address] [place] [address], [address] [place] [address], [facility], [place]. tel:[phone] Referring Provider: Jeramie Broderick, [address] [place] [address] [address] [facility], [place], [place], [facility]. tel:[phone], [id number], [place] tel:[phone] [place] Stiffness of left knee, not elsewhere classifiedOth symptoms and signs involving the musculoskeletal systemEffusion, left kneeUnspecified abnormalities of gait and mobilityPain in left kneeOth tear of medial meniscus, current injury, left knee, subs 2 6 Stief Mindi. [address] [place] [address], [address], [place], [facility], . tel:[phone] Referring Provider: Jeramie Broderick, [address] [place] [address] Suite [facility], [place], [place], [facility]. tel:[phone] Family History Family Member Type Diagnosis Age At Onset No Information Payers Payer name Insurance type Covered libertarian ID Authoriza tiaustin(s) Medicare [place] MB [id number] [employer] Senior Supplemental [id number] Social History Type Description Quantity Date Captured Comments Sex Female Smoking Status No Information Chief Complaint And Reason For Visit No Information Reason For Referral Reason For Referral No Information History Of Present Illness Encounter Date Complaint History Of Prese nt Illness No Information Functional Status Date Functional Assessmen t No Information Instructions Date Instruction Additional Infor mation Dietary needs education Related to Overweight Dietary needs education Related to Overweight Prescribed activity/exercise edu cation Related to Overweight Assessments Type Assessment Date No Information Patient Care Teams Name Effective Dates (start - stop) Status Members No Information
--- OUTSIDE RECORDS SUMMARY | 2024-12-21 00:58 | XMS_ITS ---
[facility] [phone] [facility] [address] [place] [address] * XR CERVICAL SPINE 2 OR 3 VIEWS (12/07/2024 2:54 PM CDT) Anatomical Region Laterality Modality Spine Computed Radiogr aphy 12/07/2024 2:55 PM CDT Impressions 12/07/2024 3:01 PM CDT IMPRESSION: 1. No acute fracture identified. DICTATION LOCATION: [address] Narrative 12/07/2024 3:01 PM CDT EXAMINATION: XR CERVICAL SPINE 2 OR 3 VIEWS DATE: 12/07/2024 2:54 PM HISTORY: See Diagnosis; Personal history of tuberculosis COMPARISON: X-ray dated 04/19/2022 FINDINGS: The vertebral bodies are normally aligned. No acute fracture or compression deformity is identified. There is mild intervertebral disc space narrowing at C5-6 and C6-7. Minimal facet arthropathy is present in the lower cervical spine. The dens is intact. The C1 lateral masses are normally aligned. The prevertebral soft tissue is normal. Procedure Note Jesús Shin MD - 12/07/2024 EXAMINATION: XR CERVICAL SPINE 2 OR 3 VIEWS DATE: 12/07/2024 2:54 PM HISTORY: See Diagnosis; Personal history of tuberculosis COMPARISON: X-ray dated 04/19/2022 FINDINGS: The vertebral bodies are normally aligned. No acute fracture or compression deformity is identified. There is mild intervertebral disc space narrowing at C5-6 and C6-7. Minimal facet arthropathy is present in the lower cervical spine. The dens is intact. The C1 lateral masses are normally aligned. The prevertebral soft tissue is normal. IMPRESSION: 1. No acute fracture identified. DICTATION LOCATION: [address] Eloise Gage MD DIAGNOSTIC IMAGING ORDERABL ES Final Result * XR SHOULDER 2+ VW BILAT (12/07/2024 2:54 PM CDT) Anatomical Region Laterality Modality Upper Extremity Computed Radiogr aphy 12/07/2024 2:54 PM CDT Impressions 12/07/2024 3:00 PM CDT IMPRESSION: 1. No significant osseous abnormality. DICTATION LOCATION: Location [address] [place] [address] Narrative 12/07/2024 3:00 PM CDT XR SHOULDER 2+ VW BILAT DATE: 12/07/2024 2:54 PM HISTORY: Osteoarthrosis. FINDINGS: Right: The osseous structures are intact. The joint spacing is normal. No soft tissue abnormality. Left: The osseous structures are intact. The joint spacing is normal. No soft tissue abnormality. Procedure Note MasDoyle MD - 12/07/2024 XR SHOULDER 2+ VW BILAT DATE: 12/07/2024 2:54 PM HISTORY: Osteoarthrosis. FINDINGS: Right: The osseous structures are intact. The joint spacing is normal. No soft tissue abnormality. Left: The osseous structures are intact. The joint spacing is normal. No soft tissue abnormality. IMPRESSION: 1. No significant osseous abnormality. DICTATION LOCATION: Location [address] [place] [address] us Eloise Gage MD DIAGNOSTIC IMAGING ORDERABL ES Final Result * MISCELLANEOUS LAB TEST (11/26/2024 3:50 PM CDT) us Abstract Provider CHEMISTRY ORDERABLES Final Res ult Performing Organization Address City/[facility] [place] [facility]/ZIP Co de Phone Number CK PEARL MD CLIA# [id number] [address] [address] * (ABNORMAL) POC HEMOGLOBIN A1C (07/12/2024 8:43 AM CHEESEMAKING LABORER) HGB A1C POC 6.7(A) 4.0 - 6.0 % CK PEARL MD KIT LOT NUMBER POC [id number] CK PEARL MD KIT EXP DATE POC 07/2026 CK PEARL MD Blood, capillary 07/12/2024 8:43 AM CHEESEMAKING LABORER us Tereza Floyd NP POINT OF CARE TESTI NG Final Result Performing Organization Address City/[facility] [place] [facility]/ZIP Co de Phone Number [facility]ICAL [facility] MD [facility]# [id number] [address] [address] * MAMMO 3D [facility]TT DIAGNOSTIC UNI LT W OR WO CAD (02/05/2024 2:44 PM CDT) Anatomical Region Laterality Modality Breast Left Mammography 02/05/2024 2:44 PM CDT Impressions 02/05/2024 3:17 PM CDT IMPRESSION: The calcifications are felt represent a degenerating fibroadenoma. RECOMMENDATIONS: Routine screening mammogram in one year. DICTATION LOCATION: [facility] Narrative 02/05/2024 3:17 PM CDT EXAM: LEFT BREAST FULL-FIELD DIGITAL DIAGNOSTIC MAMMOGRAM WITH CAD WITH 3D TOMOSYNTHESIS DATE: 02/05/2024 2:44 PM HISTORY: Grouped calcifications left breast. TECHNIQUE: Magnification views left breast. COMPARISON: 2023, 2022, 2020 BREAST COMPOSITION: The breasts are heterogeneously dense, which may obscure small masses. FINDINGS: The grouped calcifications in the upper outer quadrant left breast are fairly coarse and have a fairly rounded appearance as a group. This most likely represents a degenerating fibroadenoma. OVERALL FINAL ASSESSMENT: BI-RADS CATEGORY 2: Benign findings Procedure Note Cisco Scherer MD - 02/05/2024 EXAM: LEFT BREAST FULL-FIELD DIGITAL DIAGNOSTIC MAMMOGRAM WITH CAD WITH 3D TOMOSYNTHESIS DATE: 02/05/2024 2:44 PM HISTORY: Grouped calcifications left breast. TECHNIQUE: Magnification views left breast. COMPARISON: 2023, 2022, 2020 BREAST COMPOSITION: The breasts are heterogeneously dense, which may obscure small masses. FINDINGS: The grouped calcifications in the upper outer quadrant left breast are fairly coarse and have a fairly rounded appearance as a group. This most likely represents a degenerating fibroadenoma. OVERALL FINAL ASSESSMENT: BI-RADS CATEGORY 2: Benign findings IMPRESSION: The calcifications are felt represent a degenerating fibroadenoma. RECOMMENDATIONS: Routine screening mammogram in one year. DICTATION LOCATION: [facility] us Ck Posadas MD MAMMO ORDERABLES Final Resu lt * MICROALBUMIN/CREATININE RATIO, RANDOM UR (01/09/2024 11:29 AM CDT) Creatinine, Urine 123 20 - 275 mg/dL [facility] MICROALBUMIN, URINE 0.7 See Note: mg/dL [facility] Comment: Reference Range: Reference Range Not established MICROALBUMIN/CREAT RATIO, UR 6 <30 mg/g creat [facility] Comment: The ADA defines abnormalities in albumin excretion as follows: Albuminuria Category Result (mg/g creatinine) Normal to Mildly increased <30 Moderately increased 30-299 Severely increased > OR = 300 The ADA recommends that at least two of three specimens collected within a 3-6 month period be abnormal before considering a patient to be within a diagnostic category. FASTING:NO FASTING: NO Test Performed at: [facility] [address] Lg Llanos MD 01/09/2024 11:2 9 AM CDT 01/09/2024 11:30 AM CDT us Ck Posadas MD URINE ORDERABLES Final Resu lt [facility] [phone] [facility] [address] * XR DEXA BONE DENSITY AXIAL 1 OR MORE SITES (05/16/2023 1:39 PM CDT) Anatomical Region Laterality Modality Digital Radiogra phy 05/16/2023 1:39 PM CDT Impressions 05/16/2023 1:47 PM CDT IMPRESSION: This is a summary page. Please refer to the complete detailed report found in the Imaging Section of the [facility] EMR. Osteopenia. Lumbar Spine: t-Score: -2.1 Left Femoral Neck: t-Score: -1.9 Left Total Femur: t-Score: -1.8 Right Femoral Neck: t-Score: -2.0 Right Total Femur: t-Score: -1.4 Left Forearm: t-Score: -1.1 Statistical change: No significant change in BMD since the prior exam. FRAX FRACTURE RISK ASSESSMENT: (Only valid Between 40-89 Years Of Age) Risk factors: History of fracture as an adult. Secondary osteoporosis. Rheumatoid arthritis. 10 Year Probability Of Fracture Major Osteoporotic: 23.3 % Hip: 4.5 % Comparison population: [place], Race: White A major osteoporotic fracture is defined as a fracture of the spine, forearm, hip or shoulder. Definitions: Normal: T-score above -1.0 Osteopenia T-score less than -1.0 and above -2.5 Osteoporosis: T-score <= -2.5 Follow-up Recommendations: Patients without high risk factors for osteoporosis T-score -1.0 to -1.5 - Consider repeat BMD in 5-10 years T-score -1.5 to - 2.0 - Consider repeat BMD in 3-5 years T-score -2.0 to - 2.5 - Consider repeat BMD every 2 years Patients on treatment for osteoporosis 1-2 years after initiation of treatment and every 2 [address] Gus Quintero MD DICTATION LOCATION: 05/16/2023 1:47 PM CDT EXAMINATION: BONE DENSITY STUDY (DXA) DATE: 05/16/2023 1:39 PM HISTORY: 68 years Female. Postmenopausal. Osteopenia. Screening for osteoporosis. PROCEDURE: Planar images of the lumbar spine, hip(s) and forearm(s) using a [employer] DEXA scanner for bone mineral density determination (BMD). Prior bone density: 06/11/2022 FINDINGS: Lumbar Spine (L1-L4): t-Score: -2.1 0.93 g/sq cm Prior: 0.912 g/sq cm Left Femoral Neck: t-Score: -1.9 0.778 g/sq cm Prior: 0.815 g/sq cm Left Total Femur: t-Score: -1.8 Right Femoral Neck: t-Score: -2.0 0.755 g/sq cm Prior: 0.793 g/sq cm Right Total Femur: t-Score: -1.4 Left 33% Radius: t-Score: -1.1 0.776 g/sq cm Prior: 0.794 g/sq cm INCIDENTAL FINDINGS: None. Procedure Note Gus Quintero MD - 05/16/2023 EXAMINATION: BONE DENSITY STUDY (DXA) DATE: 05/16/2023 1:39 PM HISTORY: 68 years Female. Postmenopausal. Osteopenia. Screening for osteoporosis. PROCEDURE: Planar images of the lumbar spine, hip(s) and forearm(s) using a [employer] DEXA scanner for bone mineral density determination (BMD). Prior bone density: 06/11/2022 FINDINGS: Lumbar Spine (L1-L4): t-Score: -2.1 0.93 g/sq cm Prior: 0.912 g/sq cm Left Femoral Neck: t-Score: -1.9 0.778 g/sq cm Prior: 0.815 g/sq cm Left Total Femur: t-Score: -1.8 Right Femoral Neck: t-Score: -2.0 0.755 g/sq cm Prior: 0.793 g/sq cm Right Total Femur: t-Score: -1.4 Left 33% Radius: t-Score: -1.1 0.776 g/sq cm Prior: 0.794 g/sq cm INCIDENTAL FINDINGS: None. IMPRESSION: This is a summary page. Please refer to the complete detailed report found in the Imaging Section of the [facility] EMR. Osteopenia. Lumbar Spine: t-Score: -2.1 Left Femoral Neck: t-Score: -1.9 Left Total Femur: t-Score: -1.8 Right Femoral Neck: t-Score: -2.0 Right Total Femur: t-Score: -1.4 Left Forearm: t-Score: -1.1 Statistical change: No significant change in BMD since the prior exam. FRAX FRACTURE RISK ASSESSMENT: (Only valid Between 40-89 Years Of Age) Risk factors: History of fracture as an adult. Secondary osteoporosis. Rheumatoid arthritis. 10 Year Probability Of Fracture Major Osteoporotic: 23.3 % Hip: 4.5 % Comparison population: [place], Race: White A major osteoporotic fracture is defined as a fracture of the spine, forearm, hip or shoulder. Definitions: Normal: T-score above -1.0 Osteopenia T-score less than -1.0 and above -2.5 Osteoporosis: T-score <= -2.5 Follow-up Recommendations: Patients without high risk factors for osteoporosis T-score -1.0 to -1.5 - Consider repeat BMD in 5-10 years T-score -1.5 to - 2.0 - Consider repeat BMD in 3-5 years T-score -2.0 to - 2.5 - Consider repeat BMD every 2 years Patients on treatment for osteoporosis 1-2 years after initiation of treatment and every 2 years thereafter [address] Gus Quintero MD DICTATION LOCATION: 1 Ck Posadas MD DIAGNOSTIC IMAGING ORDERABL ES Final Result * LIPID PANEL (04/23/2023 7:55 AM CDT) CHOLESTEROL 154 <200 mg/dL [facility] HDL 77 > OR = 50 mg/dL [facility] TRIGLYCERIDE 56 <150 mg/dL [facility] LDL CALCULATED 63 mg/dL (calc) [facility] Comment: Reference range: <100 Desirable range <100 mg/dL for primary prevention; <70 mg/dL for patients with CHD or diabetic patients with > or = 2 CHD risk factors. LDL-C is now calculated using the Evan-Santana calculation, which is a validated novel method providing better accuracy than the Friedewald equation in the estimation of LDL-C. Evan SS et al. TRISH. 2013;310(19): 6793-7096 (http://education.SmartCloud/faq/QEI568) CHOL/HDL RATIO 2.0 <5.0 (calc) [facility] TOTAL NON-HDL CHOL(LDL+VLDL) 77 <130 mg/dL (calc) [facility] Comment: For patients with diabetes plus 1 major ASCVD risk factor, treating to a non-HDL-C goal of <100 mg/dL (LDL-C of <70 mg/dL) is considered a therapeutic option. FASTING:YES FASTING: YES Test Performed at: [facility] [id number] [place] [address] Lg Llanos MD 04/23/2023 7:55 AM CDT 04/23/2023 7:56 AM CDT Ck Posadas MD CHEMISTRY ORDERABLES Final Result [facility] [phone] [facility] [address] [place] [address] * DIABETES EYE EXAM (02/21/2023) DIABETIC RETINOPATHY [facility]CRE[facility]ING [facility] Other [facility] Result - Final [facility] MD CLIA# [id number] [address] [address] * COLONOSCOPY REPORT (07/09/2021 11:35 AM CHEESEMAKING LABORER) Narrative Procedure Note Antoine Charles MD - 07/09/2021 11:35 AM CST [facility] Endoscopy Patient Name: Melissa Reyez Procedure Date: 07/09/2021 Date of : 1955 Attending MD: Antoine Charles MD Procedure: Colonoscopy Indications: Screening for colorectal malignant neoplasm, Incidental diarrhea noted Providers: Antoine Charles MD Referring MD: Ck Posadas MD Medicines: Monitored Anesthesia Care Complications: No immediate complications. Procedure: Informed consent was obtained for the procedure, including moderate sedation after risks were discussed. Based on the pre-procedure assessment, including review of the patient's medical history, medications, allergies, and review of systems, the patient was deemed to be an appropriate candidate for sedation. A timeout was performed. Continuous ECG monitoring, pulse oximetry, blood pressure monitoring, and direct observation were performed. The Colonoscope was introduced through the anus and advanced to the cecum, identified by appendiceal orifice and ileocecal valve. The colonoscopy was performed without difficulty. The patient tolerated the procedure well. The quality of the bowel preparation was good. The quality of the bowel preparation was evaluated using the BBPS (Howe Bowel Preparation Scale) with scores of: Right Colon = 3, Transverse Colon = 3 and Left Colon = 3 (entire mucosa seen well with no residual staining, small fragments of stool or opaque liquid). The total BBPS score equals 9. Findings: The perianal and digital rectal examinations were normal. Three sessile polyps were found in the ascending colon. The polyps were diminutive in size. These polyps were removed with a cold snare. Resection and retrieval were complete. one clip was placed A diminutive polyp was found in the sigmoid colon. The polyp was sessile. The polyp was removed with a cold biopsy forceps. Resection and retrieval were complete. The recto-sigmoid colon, descending colon, transverse colon, ascending colon and colon (entire examined portion) appeared normal. Biopsies were taken with a cold forceps for histology. External and internal hemorrhoids were found during retroflexion. The hemorrhoids were medium-sized and Grade I (internal hemorrhoids that do not prolapse). The exam was otherwise without abnormality on direct and retroflexion views. Impression: - Three diminutive polyps in the ascending colon, removed with a cold snare. Resected and retrieved. One clip was placed - One diminutive polyp in the sigmoid colon, removed with a cold biopsy forceps. Resected and retrieved. - The recto-sigmoid colon, descending colon, transverse colon, ascending colon and entire examined colon are normal. Biopsied. - External and internal hemorrhoids. - The examination was otherwise normal on direct and retroflexion views. Recommendation: - Discharge patient to home (with escort). - Await pathology results. Consider SIBO - Repeat colonoscopy in 5 years for surveillance based on pathology results. Procedure Code(s): --- Professional --- 49215, Colonoscopy, flexible; with removal of tumor(s), polyp(s), or other lesion(s) by snare technique 92323, 59, Colonoscopy, flexible; with biopsy, single or multiple CPT copyright 2019 [employer]. All rights reserved. The codes documented in this report are preliminary and upon senior pl sql developer review may be revised to meet current compliance requirements. Antoine Charles MD 07/09/2021 11:34:41 AM This report has been signed electronically. Number of Addenda: 0 [id number] [place] [address] Antoine Charles MD GI PROCEDURE ORDERABLES Final Result from Last 3 Months or Most Recently Relevant to Health Maintenance Additional Health Concerns Active Problems Noted Date Diagnosed Date Heart Failure Problem 07/26/2024 Heart Failure Problem 07/26/2024 Heart Failure Problem 07/26/2024 Heart Failure Problem 07/26/2024 Heart Failure Problem 07/26/2024 Heart Failure Problem 07/26/2024 Heart Failure Problem 07/26/2024 Heart Failure Problem 07/26/2024 Heart Failure Problem 07/27/2024 Heart Failure Problem 07/27/2024 Heart Failure Problem 07/27/2024 Heart Failure Problem 07/27/2024 Insurance MEDICARE PART A AND B [employer] MEDICARE SUPP AESSI RX [employer] Medicare Part D MEDICARE PART A AND B AET[employer] MEDICARE SUPP AESSI Advance Directives For more information, please contact: [phone] * Full Code (Latest Code Status on File) Date Activated Date Inactivated Comments 12/22/2018 7:25 AM 12/22/2018 11:09 AM * Full Code Date Activated Date Inactivated Comments 07/20/2009 7:41 AM 07/21/2009 2:02 AM Care Teams Relay Tester Helper Relationship Specialty Start Date End Date Ck Posadas MD [address] [place] [address] PCP - General 12/10/07 Clinical Summary Created on: December 21, 2024 Melissa Reyez : 1955 Sex: Female Author Organization [facility] Address [address] [place] [address] Phone Care Team Providers Care Relay Tester Helper Name Role Phone Ck Posadas MD Primary Care Provider Allergies Active Allergy Reactions Criticality Noted Date Comments Duloxetine Rash Low 10/19/2020 Linagliptin Other (See Comments) 04/05/2016 arthralgia Metformin Dizziness Low 12/14/2015 Medications acetaminophen (TYLENOL ARTHRITIS) 650 mg Extended Release tablet Take 1,300 mg by mouth every 6 hours as needed for Pain. Active ergocalciferol (VITAMIN D2) 50,000 unit capsule daily. 1,000 IU 04/19/20 22 Active hydroxychloroq uine (PLAQUENIL) 200 mg tablet Take 1 Tablet (200 mg) by mouth daily. 90 Tablet 3 05/13/20 23 Active atorvastatin (LIPITOR) 40 mg tablet Take 1 Tablet (40 mg) by mouth daily at bedtime. TAKE 1 TABLET(40 MG) BY MOUTH IN THE EVENING 90 Tablet 3 03/09/20 24 Active losartan (COZAAR) 50 mg tablet Take 1 Tablet (50 mg) by mouth daily. 90 Tablet 3 03/09/20 24 Active lancets Test blood sugar 4 times per day 120 Each 3 05/21/20 24 Active blood sugar diagnostic (OneTouch Ultra Test) Strip Test blood glucose 4 times per day 120 Strip 3 05/21/20 24 Active PARoxetine HCl (PAXIL) 20 mg tabletIndicati ons:Moderate episode of recurrent major depressive disorder (CMS/HCC) Take 1 Tablet (20 mg) by mouth daily. 90 Tablet 1 07/12/20 24 Active chlorthalidone (HYGROTON) 25 mg tablet Take 1 Tablet (25 mg) by mouth daily. 07/12/20 24 Active potassium chloride (KLOR-CON) 10 mEq Extended Release tablet Take 1 Tablet (10 mEq) by mouth 2 times daily with meals. 07/12/20 24 Active Insulin [place], Disposable, (Comfort EZ Pen [place]) 32 gauge x 5/32 Needle 100 Each by [facility].(Non-Drug; Combo Route) route daily. 100 Each 3 08/16/19 25 Active empagliflozin (JARDIANCE) 25 mg tabletIndicati ons:Controlled type 2 diabetes mellitus with diabetic polyneuropathy , without long-term current use of insulin ([facility]) Take 1 Tablet (25 mg) by mouth daily in the morning. 100 Tablet 3 09/03/19 25 Active dilTIAZem (CARDIZEM CD, CARTIA XT) 120 mg Controlled Delivery 24 hour capsule Take 120 mg by mouth daily. 10/10/19 25 Active rivaroxaban (Xarelto) 20 mg Tablet Take 20 mg by mouth daily with supper. Active calcium CITRATE-vitami n D3 (CITRACAL D MAX) 315 mg-6.25 mcg (250 unit) Tablet Take by mouth daily. Active cyanocobalamin 1,000 mcg Tablet Take 1,000 mcg by mouth daily. Active ferrous sulfate 325 mg (65 mg iron) tablet Take 325 mg by mouth daily. Active glipiZIDE (GLUCOTROL) 5 mg tablet Take 1 Tablet (5 mg) by mouth daily with breakfast. 90 Tablet 3 09/25/19 23 025 Discontinu ed(Alterna te therapy prescribed ) insulin degludec (Tresiba FlexTouch U-100) 100 unit/mL pen syringe Inject 10 Units by subcutaneous injection 1 time daily as needed for Other (See Comment) or Blood Sugar (Fasting glucose over 200 while titrating up Ozempic). 9 mL 5 07/12/20 24 025 Discontinu ed(Alterna te therapy prescribed ) Active Problems Problem Noted Date Diagnosed Date History of Graves' disease 12/02/2024 Seborrheic dermatitis 11/14/2020 Gastroesophageal reflux disease without esophagi tis 01/04/2020 Atherosclerosis of [place] co ronary artery of [place] heart without angina pectoris 08/31/2019 Overview (08/31/2019): OM2-30%, RCA 20-30-20 % on cardiac cath, nonobstructive Personal history of colonic polyps 08/26/2019 Age related osteoporosis 08/26/2019 Impingement syndrome of left shoulder 12/01/2018 Moderate episode of recurrent major depressive d isorder 05/07/2018 Rheumatoid arthritis involvi ng multiple sites with positive rheumatoid factor 09/22/2016 Controlled type 2 diabetes m chrissy with diabetic polyneuropathy, without long-term current use of insulin 07/14/2015 Assessment & Plan (07/27/2024 1:49 PM CHEESEMAKING LABORER): Increase Ozempic to 1 mg weekly per M. Damien PCB DESIGN ENGINEER. Assessment & Plan (06/01/2024 11:39 AM CDT): Tresiba increased to 19 unites per M. Damien PCB DESIGN ENGINEER. Assessment & Plan (05/27/2024 12:31 PM CDT): Tresiba increased to 16 units daily per M. [facility] PCB DESIGN ENGINEER. Vitamin D deficiency 04/07/2014 Osteoarthritis of knee 11/29/2012 Insomnia 01/24/2009 Overview (08/26/2019): Overview: Generalized anxiety disorder 09/29/2007 Resolved Problems Problem Noted Date Diagnosed Date Resolved Date Photosensitive contact dermatitis 05/14/2020 05/13/2021 Dermatochalasis 08/26/2019 07/16/2020 Epigastric abdominal pain 08/26/2019 Grade II hemorrhoids 08/26/2019 020 Rheumatoid factor positive 08/26/2019 1 09/16/2019 Iron deficiency anemia 08/26/201907/16 Idiopathic osteoarthritis 08/26/2019 Heel spur, right 08/16/2019 07/16/2020 Rotator cuff tendonitis, left 09/26/2018 07/16/2020 Iron deficiency anemia secon tri to inadequate dietary iron intake 12/24/2016 3 Low serum vitamin D 08/22/2016 07/16/20 20 Obesity (BMI 30.0-34.9) 11/03/201510/2022 Depression 03/28/2015 07/16/2020 Myalgia and myositis 03/28/2015 020 Overview (08/26/2019): Overview: Fracture of left distal radius 02/21/2014 07/16/2020 Chondromalacia of patella 11/29/2012 Lateral epicondylitis 11/14/20112012 Varicose veins 03/31/2011 02/10/2012 Osteoporosis 02/01/2010 07/01/2022 Assessment & Plan (04/06/2018 3:59 PM CDT): Worsening. Worsening BMD to left femur and spine. Osteoporosis to spine. Start Fosamax weekly, recheck in 2 years. Major Osteoporotic: 19.5% -Hip: 2.6% Other abnormal glucose 02/01/201007/11 Fam hx-diabetes mellitus 02/01/2010 Seborrheic dermatitis 01/24/20092008 Paresthesia 01/24/2009 07/25/2009 Osteoarthritis of hand 07/22/200805/17 Routine general medical exam ination at a health care facility 09/29/2007 12/11/2007 Screening for ischemic heart disease 09/29/2007 12/11/2007 Screening for diabetes mellitus 09/29/2007 12/11/2007 Thyrotoxicosis without menti on of goiter or other cause, without mention of thyrotoxic crisis or storm 09/29/2007 12/11/2007 Screening for thyroid disorder 09/29/2007 12/11/2007 Trigger finger (acquired) 09/29/2007 Chest pain 01/04/2020 Encounters Date Type Department Care Team Description 12/14/2024 External Device Data [facility] ABSTRACTION Provider, Abstract 12/10/2024 Telephone [facility] Internal Medicine Medical [facility] [address] [id number] Ck Posadas MD Provider Call 12/07/2024 2:21 PM CDT - 12/07/2024 11:59 PM CDT Hospital Encounter [facility] [address] [place] [address] Eloise Gage MD Discharge Disposition: Home or Self Care 12/07/2024 2:19 PM CDT - 12/07/2024 11:59 PM CDT [facility] [facility] [id number] [place] [address] Eloise Gage MD Discharge Disposition: Home or Self Care 12/02/2024 3:00 PM CDT Office Visit [facility] Endocrinology [address] [place] [address] Victor M Greco MD Controlled type 2 diabetes mellitus with diabetic polyneuropathy, without long-term current use of insulin ([facility]) (Primary Dx); History of Graves' disease 12/02/2024 Orders Only [facility] Internal Medicine [facility] [address] [address] Provider, Abstract 12/01/2024 Abstract [facility] Internal Medicine [facility] [address] [address] Ck Posadas MD 11/30/2024 Telephone [facility] Internal Medicine [facility] [address] [address] Ck Posadas MD Patient Communication 11/30/2024 Abstract [facility] Oncology and Hematology [facility] [address] [place] [address] Leif Burnett MD 11/23/2024 External Device Data STL ABSTRACTION Provider, Abstract 11/23/2024 Telephone [facility] Heart and Vascular At [facility] [address] [place] [address] Amanda Daley MD Surgical Clearance 11/09/2024 External Device Data STL ABSTRACTION Provider, Abstract 11/04/2024 Telephone [facility] Endocrinology [address] [place] [address] Victor M Greco MD Question 10/12/2024 External Device Data STL ABSTRACTION Provider, Abstract from Last 3 Months Immunizations Immunization Administration Dates Next Due (ADACEL/BOOSTRIX)(10 YR UP) TDAP VACCINE, 0.5ML, IM 03/31/2011 (PNEUMOVAX 23)(50 YRS UP) PN EUMOCOCCAL POLYSACCHARIDE (PPV23) 0.5 ML, IM 07/29/2017 (PREVNAR 13)(6 WKS UP) PNEUM OCOCCAL CONJUGATE (PCV13) 0.5 ML, IM 05/12/2020 (PREVNAR 20)(6 WKS UP) PNEUM OCOCCAL CONJUGATE VACCINE 20-VALENT (PCV20), POLYSACCHARIDE [id number] CONJUGATE, ADJUVANT 0.5 ML (PF) IM 05/13/2023 (SPIKEVAX) (12 YRS UP PRIMAR Y SERIES) COVID-19 VACCINE - MRNA-1273(PF) 100 MCG/0.5 ML IM SUSP 11/03/2020,10/14/2020 (TENIVAC)(7 YRS UP) TETANUS AND DIPHTHERIA TOXOIDS, ADSORBED (5 LF OF TETANUS TOXOID AND 2 LF OF DIPHTHERIA TOXOID), 0.5ML (PF), IM 10/05/2021 INFLUENZA VACCINE HIGH DOSE QUADRIVALENT 65 YR UP PF IM 05/13/2023,05/17/2022,05/09/2021,05/12 INFLUENZA VACCINE HIGH DOSE TRIVALENT SPLIT VIRUS, (65 YR UP), 0.5ML (PF), IM 06/08/2024 INFLUENZA VACCINE QUADRIVALE NT 6 MOS UP PF IM 04/29/2019 Influenza Seasonal Unspecifi ed Formulation IM 05/21/2018,05/14/2017,05/17/2013 Influenza Vaccine Split 3+ Yrs IM 2015,07/11/2015,07/01/2014,05/17,05/25/2012 Family History Medical History Relation Name Comments Cancer Father pancreatic Diabetes Mother Heart Disease Mother Hypertension Mother Breast Cancer Sister age 42 Relation Name Status Comments Father Mother Sister Social History Tobacco Use Types Packs/Day Years Used Date Smoking Tobacco: Never Smokeless Tobacco: Never Tobacco Cessation:Counseling Given: Not Answered Alcohol Use Standard Drinks/Week Comments No 0 (1 standard drink = 0.6 oz pur e alcohol) Social Connections Answer Date Recorded In a typical week, how many times do you talk on the phone with family, friends, or neighbors? Twice a week 07/13/2020 How often do you get togethe r with friends or relatives? Twice a week 07/13/2020 How often do you attend chur ch or episcopal services? More than 4 times per year 07/13/2020 Do you belong to any clubs o r organizations such as mu-ism groups, unions, fraternal or athletic groups, or school groups? Yes 07/13/2020 Attends Club or Organization Meetings Not on elroy e 07/13/2020 Marital Status Not on file 07/13/2020 Financial Resource Strain Answer Date R ecorded How hard is it for you to pa y for the very basics like food, housing, medical care, and heating? Not hard at all 10/05/2021 Food Insecurity Answer Date Recorded In the past 12 months, have you worried that your food would run out before you had money to buy more? Never true 10/05/2021 In the past 12 months, did y ou run out of food and didn't have money to buy more? Never true 10/05/2021 Transportation Needs Answer Date Record ed In the past 12 months, has l ack of transportation kept you from medical appointments or from getting medications? No 10/05/2021 Lack of Transportation (Non-Medical) Not on file 10/05/2021 Education Answer Date Recorded What is the highest level of school you have completed or the highest degree you have received? 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 Gender Identity Not on file Sexual Orientation Not on file Last Filed Vital Signs Vital Sign Reading Time Taken Comments Blood Pressure 114/69 12/02/2024 3:12 PM CDT Pulse 70 12/02/2024 3:12 PM CDT Temperature 36.1 C (97 F) 07/12/2024 8:30 AM CHEESEMAKING LABORER Respiratory Rate 16 07/12/2024 8:30 AM CHEESEMAKING LABORER Oxygen Saturation 97% 12/02/2024 3:12 PM CDT Inhaled Oxygen Concentration - - Weight 64.4 kg (142 lb) 12/02/2024 3:12 PM CDT Height 165.1 cm (5' 5 ) 12/02/2024 3:12 PM CDT Body Mass Index 23.63 12/02/2024 3:12 PM CDT Plan of Treatment Upcoming Encounters Date Type Department Care Team (Late st Contact Info) Description 12/28/2024 8:30 AM CDT Office Visit [facility] Heart and Vascular - [place] [address] [place] [address] Amanda Daley MD [address] [facility] [address] [place] [address] 01/12/2025 9:15 AM CDT Office Visit [facility] Internal Medicine Medical [place] [address] [address] Ck Posadas MD [address] [address] 05/16/2025 9:15 AM CDT Office Visit [facility] Endocrinology [address] [place] [address] Victor M Greco MD [address] [place] [address] Health Maintenance Due Date Last Done Comments ZOSTER VACCINE (1 of 2) 1974 FIT-DNA Q 3 years 2000 FIT/FOBT Q 1 year 2000 Flex Sig/CT Colonography Q 5 years 2000 RSV VACCINE (60+ or ) (1 - Risk 60-74 years 1-dose series) 2015 COVID-19 Vaccine (3 - Modern a risk series) 12/01/2020 11/03/2020, 10/14/2020 LDL CHOLESTEROL ANNUAL 04/23/2024 , 06/18/2022, 06/12/2020, Additional history exists DIABETES ANNUAL FOOT EXAM 01/08/20252023, 05/13/2023, 07/01/2022, Additional history exists DIABETES MICROALBUMIN ANNUAL SCREEN 01/08/2025 01/09/2024, 04/23/2023, 03/09/2022, Additional history exists Traditional Medicare (ACO) A nnual Wellness Visit 01/09/2025 01/09/2024, 10/05/2021, 07/13/2020, Additional history exists DIABETES HBA1C Q 6 MONTHS 01/10/20252023, 04/15/2024, 01/09/2024, Additional history exists BREAST CANCER SCREENING 02/04/2025 02/05/20 24, 01/12/2024, 12/20/2022, Additional history exists OSTEOPOROSIS SCREENING 05/16/2025 , 05/16/2023, 05/16/2023, Additional history exists DIABETES ANNUAL RETINAL EXAM 06/11/202508/2023, 12/17/2023, 02/21/2023, Additional history exists DIABETES: A1C (Auto Order) 07/12/202507/12, 04/15/2024, 01/09/2024, Additional history exists COLORECTAL SCREENING 07/09/2026 07/09/2021, 07/09/2021, 07/09/2021, Additional history exists Colorectal Cancer Screening 07/09/2026 DTAP/TDAP/TD VACCINES (3 - T d or Tdap) 10/05/2031 10/05/2021, 03/31/2011 PNEUMOCOCCAL VACCINE 50+ YEARS Completed 1 , 05/12/2020, 07/29/2017 INFLUENZA VACCINE Completed 06/08/2024, , 05/17/2022, Additional history exists Goals Goal Patient Goal Type Associated Problems Recent Progress Patient-Stated? Author Heart Failure Goal Care Plan Heart Failure Problem No Walker, Radha E Heart Failure Goal Care Plan Heart Failure Problem No Walker, Radha E Heart Failure Goal Care Plan Heart Failure Problem No Walker, Radha E Heart Failure Goal Care Plan Heart Failure Problem No Walker, Radha E Heart Failure Goal Care Plan Heart Failure Problem No Ck Posadas MD Heart Failure Goal Care Plan Heart Failure Problem No Ck Posadas MD Heart Failure Goal Care Plan Heart Failure Problem No Walker, Radha E Heart Failure Goal Care Plan Heart Failure Problem No Walker, Radha E Heart Failure Goal Care Plan Heart Failure Problem No Norma Pool RN Heart Failure Goal Care Plan Heart Failure Problem No Norma Pool RN Heart Failure Goal Care Plan Heart Failure Problem No Norma Pool, distributed generation project manager Failure Goal Care Plan Heart Failure Problem No Norma Pool, DEANDRE Medical Devices Implanted Type Area Offal Worker Device Identifier Shelf Expiration Date Model / Serial / Lot Clip Endo Resolution 360 235cm [id number] - [id number] Implanted:Qty: 1 on 07/09/2021 by Antoine Charles MD at [facility] N/A: [employer] [id number] 03/28/2024 [id number] / / [id number] Procedures Procedure Name Priority Date/Time Associated Diagnosis Comments CBC WITH DIFFERENTIAL Routine 12/09/2024 12:42 PM CDT Iron deficiency anemia due to chronic blood loss XR CERVICAL SPINE 2 OR 3 VIEWS Routine 12/07/2024 2:54 PM CDT Personal history of tuberculosis XR SHOULDER 2+ VW BILAT Routine 12/07/2024 2:54 PM CDT Primary generalized hypertrophic osteoarthrosis MISCELLANEOUS LAB TEST Routine 11/26/2024 3:50 PM CDT POC HEMOGLOBIN A1C Routine 07/12/2024 8: 43 AM CHEESEMAKING LABORER Controlled type 2 diabetes mellitus with diabetic polyneuropathy, without long-term current use of insulin ([facility]) MAMMO DIAG UNI LEFT 3D SCARLETT W OR WO CAD Routine 02/05/2024 2:44 PM CDT Abnormal mammogram MICROALBUMIN/CREATINI NE RATIO, RANDOM UR Routine 01/09/2024 11:29 AM CDT XR DEXA BONE DENSITY AXIAL 1 OR MORE SITES Routine 05/16/2023 1:39 PM CDT Age-related osteoporosis without current pathological fracture LIPID PANEL Routine 04/23/2023 7:55 AM CDT HM DIABETES EYE EXAM Routine 02/21/2023 COLONOSCOPY REPORT 07/09/2021 11 :35 AM CHEESEMAKING LABORER from Last 3 Months or Most Recently Relevant to Health Maintenance Results * (ABNORMAL) CBC WITH DIFFERENTIAL (12/09/2024 12:42 PM CDT) WBC 5.2 3.8 - 10.8 Thousand/u L [facility] RBC 4.13 3.80 - 5.10 Million/uL [facility] HEMOGLOBIN 11.6(L) 11.7 - 15.5 g/dL [facility] HEMATOCRIT 38.4 35.0 - 45.0 % [facility] MCV 93.0 80.0 - 100.0 fL [facility] MCH 28.1 27.0 - 33.0 pg [facility] MCHC 30.2(L) 32.0 - 36.0 g/dL [facility] Comment: For adults, a slight decrease in the calculated MCHC value (in the range of 30 to 32 g/dL) is most likely not clinically significant; however, it should be interpreted with caution in correlation with other red cell parameters and the patient's clinical condition. RDW 13.5 11.0 - 15.0 % [facility] PLATELETS 277 140 - 400 Thousand/u L [facility] MPV 11.5 7.5 - 12.5 fL [facility] NEUTROPHIL ABSOLUTE 3,666 1,500 - 7,800 cells/uL [facility] LYMPHOCYTE ABSOLUTE 988 850 - 3,900 cells/uL [facility] MONOCYTE ABSOLUTE 452 200 - 950 cells/uL [facility] EOSINOPHIL ABSOLUTE 62 15 - 500 cells/uL [facility] BASOPHILS ABSOLUTE 31 0 - 200 cells/uL [facility] NEUTROPHIL 70.5 % [facility] LYMPHOCYTES 19.0 % [facility] MONOCYTE 8.7 % [facility] EOSINOPHILS 1.2 % [facility] BASOPHILS 0.6 % [facility] Comment: FASTING:NO FASTING: NO Test Performed at: [facility] [address] [place] [address] Lg Llanos MD Blood 12/09/2024 12:4 2 PM CDT 12/09/2024 12:44 PM CDT us Ck Posadas MD HEMATOLOGY ORDERABLES Final Result
--- OUTSIDE RECORDS SUMMARY | 2024-12-21 00:58 | XMS_ITS | Clinical Summary ---
Author Organization [facility] Address [address] [place] [address] Care Team Providers Care Primary School Teacher Librarian Name Role Phone Unavailable Primary Care Provider Unavailabl e Social History Tobacco Use Types Packs/Day Years Used Date Smoking Tobacco: Never Assessed Comments Unknown Sex and Gender Information Value Date Recorded Sex Assigned at Not on file Legal Sex Female 5:29 PM CDT Gender Identity Not on file Sexual Orientation Not on file Plan of Treatment Health Maintenance Due Date Last Done Comments Colorectal Cancer Screening Colonoscopy (10 Years) 1955 Hepatitis C 1973 DTaP, Tdap and Td Vaccines ( 1 - Tdap) 1974 Mammogram Screening 1995 Pneumococcal Vaccine: 50+ Ye ars (1 of 1 - PCV) 2005 Zoster Vaccines (1 of 2) 2005 Dexa Scan (General) 2020 COVID-19 Vaccine ( - 2023-2 5 season) 2024 RSV Immunization or 60+ Years (1 - 1-dose 75+ series) 2030 Meningococcal B Vaccine Aged Out No l onger eligible based on patient's age to complete this topic Meningococcal Vaccine Aged Out No haleigh pee eligible based on patient's age to complete this topic RSV Immunizations Under 20 Months Aged Out No longer eligible based on patient's age to complete this topic
--- OUTSIDE RECORDS SUMMARY | 2024-12-21 00:58 | XMS_ITS | Encounter Summary ---
Author Organization [facility] Address [address] [place] [address] Care Team Providers Care Cloth Sponger Name Role Phone Ck Posadas MD Primary Care Provider Encounter Details Date Type Department Care Team (Latest Contact Info) Description 07/27/2008 Outpatient Historical [facility] Ck Posadas MD [address] [address] Screening for Ischemic Heart Disease Social History Tobacco Use Types Packs/Day Years Used Date Smoking Tobacco: Never Alcohol Use Standard Drinks/Week Comments No 0 (1 standard drink = 0.6 oz pur e alcohol) 4-6 sodas dailly Comments No Sex and Gender Information Value Date Recorded Sex Assigned at Not on file Legal Sex Female 5:28 AM THREAD TRIMMER Gender Identity Not on file Sexual Orientation Not on file documented as of this encounter Plan of Treatment Upcoming Encounters Date Type Department Care Team (Late st Contact Info) Description 12/28/2024 8:30 AM CDT [facility] Heart [facility]ascular - [facility] [address] [place] [address] Amanda Daley MD [address] [facility] [address] [place] [address] 01/12/2025 9:15 AM CDT [facility] Internal Medicine Medical [place] A [facility] [address] [address] Ck Posadas MD [address] [facility] [address] [place] [address] 05/16/2025 9:15 AM CDT [facility] Visit [facility] Endocrinology [address] [place] [address] Victor M Greco MD [address] [facility] [address] [place] [address] documented as of this encounter Visit Diagnoses Diagnosis Screening for ischemic heart disease documented in this encounter Additional Health Concerns Infection Onset Date Last Indicated Resolved Time R/O C. diff 03/11/2022 03/09/2022 03/11/2022 3:22 PM CDT documented as of this encounter Care Teams Cloth Sponger Relationship Specialty Start Date End Date Ck Posadas MD [address] [place] [address] [address] [address] PCP - General 12/10/07 documented as of this encounter
--- OUTSIDE RECORDS SUMMARY | 2024-12-21 00:58 | XMS_ITS | Encounter Summary ---
Author Organization [facility] Address [address] [place] [address] Care Team Providers Care Hand Plate Stacker Name Role Phone Ck Posadas MD Primary Care Provider Encounter Details Date Type Department Care Team (Late st Contact Info) Description 02/09/2024 Telephone [facility] Internal Medicine Medical [place] A [facility] [address] [place] [address] Ck Posadas MD [address] [facility] [address] [place] [address] Social History Tobacco Use Types [...] often do you attend chur ch or restorationist services? 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 [address] [place] [address] Amanda Daley MD [address] [facility] [address] [place] [address] 01/12/2025 9:15 AM CDT Office Visit [facility] Internal Medicine Medical [facility] [address] [address] kC oPsadas MD [address] [facility] [address] [address] 05/16/2025 9:15 AM CDT Office Visit [facility] Endocrinology [address] [place] [address] Victor M Greco MD [address] [facility] [address] [place] [address] documented as of this encounter Visit Diagnoses Not on filedocumented in this encounter Additional Health Concerns Assessment Noted Time PHQ-9 Depression Total Score: 2 01/07/20 24 3:25 PM CDT documented as of this encounter Care Teams Hand Plate Stacker Relationship Specialty Start Date End Date Ck Posadas MD [address] [place] [address] PCP - General 12/10/07 documented as of this encounter
--- OUTSIDE RECORDS SUMMARY | 2024-12-21 00:58 | XMS_ITS | Encounter Summary ---
Author Organization [facility] Address [address] [place] [address] Care Team Providers Care Application Lead Name Role Phone Ck Posadas MD Primary Care Provider [phone] Reason for Visit * Reason Comments Provider Call Encounter Details Date Type Department Care Team (Late st Contact Info) Description 12/10/2024 Telephone [facility] Internal Medicine Medical [place] [address] [address] Ck Posadas MD [address] [facility] [address] [place] [address] Provider Call Social History Tobacco Use Types Packs/Day Years [...] often do you attend chur ch or alevism services? More than 4 times per year 07/13/2020 Do you belong to any clubs o r organizations such as rastafari groups, unions, fraternal or athletic groups, or [...] on file Legal Sex Female 5:28 AM CONDUIT CLEANER Gender Identity Not on file Sexual Orientation Not on file documented as of this encounter Miscellaneous Notes * Telephone Encounter - Olegario Godfrey - 12/10/2024 3:33 PM CDT Copied from [facility] #[id number]. Topic: [id number]-Mc-Rdmghmsy Call >> December 10, 2024 3:28 PM Olegario Green wrote: Caller is requesting to speak with Clinical Care Team. Caller Name: [facility] . Callback Number: [phone] Clinician Type: Other healthcare professional not listed above Call Notes: Wants to know if Dr. Posadas can fax over lab CBC from 12/09/24 over to [phone] . Patient has surgery on 12/21/24 Is this addressing an immediate patient care need? No documented in this encounter Plan of Treatment Upcoming Encounters Date Type Department Care Team (Late st Contact Info) Description 12/28/2024 8:30 AM CDT Office Visit [facility] Heart and Vascular - [facility] [address] [place] [address] Amanda Daley MD [address] [facility] [address] [place] [address] 01/12/2025 9:15 AM CDT Office Visit [facility] Internal Medicine Medical [place] A [address] [address] Ck Posadas MD [address] [facility] [address] [address] 05/16/2025 9:15 AM CDT Office Visit [facility] Endocrinology [address] [place] [address] Victor M Greco MD [address] [facility] [address] [place] [address] documented as of this encounter Goals Goal Patient Goal Type Associated Problems [...] Heart Failure Problem No Norma Pool RN documented as of this encounter Visit Diagnoses Not on filedocumented in this encounter Additional Health Concerns Active Problems Noted Date Diagnosed Date Heart Failure Problem 07/26/2024 Heart Failure Problem 07/26/2024 Heart Failure Problem 07/26/2024 Heart Failure Problem 07/26/2024 Heart Failure Problem 07/26/2024 Heart Failure Problem 07/26/2024 Heart Failure Problem 07/26/2024 Heart Failure Problem 07/26/2024 Heart Failure Problem 07/27/2024 Heart Failure Problem 07/27/2024 Heart Failure Problem 07/27/2024 Heart Failure Problem 07/27/2024 Assessment Noted Time PHQ-9 Depression Total Score: 2 01/07/20 24 3:25 PM CDT documented as of this encounter Care Teams Application Lead Relationship Specialty Start Date End Date Ck Posadas MD [address] [place] [address] PCP - General 12/10/07 documented as of this encounter
[2024-12-21] MEDS: LACTATED RINGERS 1,000 ML 30 ML IV CONT ×2 (06:50→11:23)
[2024-12-21 06:52] LABS: Urine Cotinine NEGATIVE
[2024-12-21 06:53] LABS: Glucose Point of Care 175 mg/dl (65-105)
--- NOTE | 2024-12-21 07:00 | WPDANESEPPF ---
Anes - Initial Pre Proc Eval Procedure: Operation Date: 12/21/24 08:30 Proposed Procedures p Bilateral Medial Thigh Lift with Liposuction - Bridger Payton MD Date/Time: 12/21/24 07:00 Surgeon: Bridger Payton MD Pre Op Diagnosis: skin laxity Patient Data Age: 69 Gender: F Height: 1.65 m Weight: 63 kg Allergies Allergy/AdvReac Type Severity Reaction Status Date / Time metformin AdvReac NAUSEA, Verified 12/21/24 06:57 DIARRHEA Home Medications ?Medication ?Instructions ?Recorded ?Confirmed ?Type atorvastatin 40 mg tablet 40 mg PO HS 04/27/24 12/21/24 History cyanocobalamin (vitamin B-12) 1,000 mcg PO DAILY 04/27/24 12/21/24 History 1,000 mcg capsule diltiazem HCl 120 mg 120 mg PO QAM 04/27/24 12/21/24 History capsule,extended release 24 hr ergocalciferol (vitamin D2) 1,250 50,000 unit PO WEEKLY 04/27/24 12/21/24 History mcg (50,000 unit) capsule hydroxychloroquine 200 mg tablet 200 mg PO DAILY 04/27/24 12/21/24 History losartan 50 mg tablet 50 mg PO QAM 04/27/24 12/21/24 History paroxetine HCl 20 mg tablet 20 mg PO QAM 04/27/24 12/21/24 History rivaroxaban 20 mg tablet (Xarelto) 20 mg PO HS 04/27/24 12/21/24 History calcium citrate 200 mg PO DAILY 12/10/24 12/21/24 History empagliflozin 25 mg tablet 25 mg PO DAILY 12/10/24 12/21/24 History (Jardiance) ferrous sulfate 325 mg (65 mg 325 mg PO DAILY 12/10/24 12/21/24 History iron) tablet (FeroSul) Laboratory Tests 12/21/24 12/21/24 06:28 06:49 POC Capillary Glucose 175 H mg/dl (65-105) Cotinine Negative Patient hx anesthesia problems: other (prolonged confusion) Family hx anesthesia problems: none Results Review: All pre-operative results and documents have been reviewed as part of the pre-operative evaluation. [facility] Past Medical History Medical History Postoperative nausea and vomiting Anxiety and depression Shingles (~08/2023) Graves' disease Diabetes Rheumatoid arthritis Osteoporosis Arthritis HTN (hypertension) HLD (hyperlipidemia) Atrial fibrillation Surgical History Surgical History History of abdominoplasty (05/04/24) History of knee surgery bilateral meniscus repair History of arthroplasty of left knee History of gastric bypass (2018) Family History Family History Sibling Family history of diabetes mellitus in first degree relative Mother Family history of heart disease in male family member before age 55 Social History Social History Smoking status: Never smoker Alcohol intake: never Substance use: never Do You Feel Safe in your Home?: Yes Lack of Transportation: No Lack of Food: Never True Current Housing: I Have Housing Concerned About Future Housing: No Difficulty Paying Gas/Electric Bills: No Difficulty Paying for Meds: No Currently Unemployed: No Education: Associate Degree Difficulty w/ Childcare or Family Care: No Living arrangements: with family Additional living arrangements comments: Spiritual care concerns: No Anes - Eval Final PreProcedure Day of Procedure 12/21/24 07:00 Patient weight: normal Heart: regular rate and rhythm Lungs: clear to auscultation Airway: Mallampati scale class 1 Neurological: alert and oriented Last oral intake: >/= 8 hours ASA classification: III Emergent: no Anesthetic plan: proceed Anesthesia type and monitoring: general LMA and standard monitoring Other findings: will reduce midazolam, run propofol infusion, no scop Results Review: All pre-operative results and documents have been reviewed as part of the pre-operative evaluation. Informed Consent: The patient's anesthetic plan and its attendant risks and benefits were discussed with the patient/family/POA. Questions were solicited and answers provided to the satisfaction of the patient/family/POA.
--- NOTE | 2024-12-21 07:07 | WPDHPUPDATE1 ---
History and Physical Update Update Date/Time: 12/21/24 07:07 History and Physical has been reviewed, including an updated exam of the patient. There are NO changes in the patient's condition. Will proceed with bilateral medial thigh lift with liposuction. Risks, benefits, and alternatives have been discussed and questions answered. Patient agrees to proceed with procedure.
--- NOTE | 2024-12-21 07:08 | W.PM.PROC2 ---
Procedure Note - Detailed Date of Procedure 12/21/24 Pre-op Diagnosis skin laxity Post-op Diagnosis Same Procedure Performed Bilateral medial thigh lift with liposuction Surgeon Bridger Payton MD Anesthesia General Findings Lipoaspirate: 2,800 cc Description of Procedure Here for the above procedures. Preoperatively risks, benefits, alternatives were discussed again today in extensive detail. I want to be very realistic about the risks involved as well as expectations. Made sure answered all of their questions to satisfaction. They voiced a clear understanding. Consent obtained. Patient was marked in the preoperative holding area with their verification. Taken to the operating placed supine on the operating table. Anesthesia was provided by anesthesiology. Prepped and draped in a standard sterile fashion. Surgical time-out was taken. Stab incisions were made and I tumesced with a tumescent solution. Once adequate time for hemostasis suction lipectomy was with a 4 mm basket cannula based on S.A.F.E. technique. This was completed based on preoperative planning, intraoperative observation, and rolling pinch test which was in full agreement. I completely de-fatted the planned resection area and a strip avulsion technique was completed. Starting proximal to distal a 10 blade was used to excise the intervening skin and this was tacked as we proceed to ensure good closure. This was closed using a 2-0 Quill, 3-0 strata fix, running subcuticular 4-0 Monocryl, and tissue glue. Dressings were placed. Tolerated the procedure well. Taken to the PACU without difficulty. All instrument sponge counts were correct at the end of the case. Estimated Blood Loss 30 Drains No Packing No Pathology None sent Complications No immediate complications Condition Stable Disposition PACU
[2024-12-21] MEDS: LACTATED RINGERS IRRIG 1,000 ML, LIDOCAINE 1% LOCAL INJ 50 ML, EPINEPHrine HCL INJ 1 MG... INFILTRATE (08:30)
[2024-12-21] MEDS: ceFAZolin 2 GM/D5W 50 ML 2 GM/50 ML BAG IVPB (08:30)
[2024-12-21] MEDS: TRANEXAMIC ACID 1,000MG/ISO100 1,000 MG/100 ML BAG 200 MG IVPB (08:40)
--- NOTE | 2024-12-21 12:12 | SUR.PHASEI ---
1130 - Cony Minor CRNA aware of accucheck of 218
[2024-12-21 12:40] LABS: Hepatitis B Surface Antigen Negative (Negative)
[2024-12-21 12:57] LABS: HIV 1/2 Ab P24 Ag Result Negative (Negative); Hepatitis C Virus Antibody Negative (Negative)
[2024-12-21 15:56] LABS: Glucose Point of Care 218 mg/dl (65-105)
== END 2024-12-21 13:21 | disposition home or self-care (01) ==
PROVIDERS: Visit Provider Surgery Plastic and Reconstructive Surgery
PROC: (CPT 15832; principal; 2024-12-21 08:30)
DX: Z41.1 Encounter for cosmetic surgery (principal); L57.4 Cutis laxa senilis; E78.5 Hyperlipidemia, unspecified; I10 Essential (primary) hypertension; E11.9 Type 2 diabetes mellitus without complications; I48.91 Unspecified atrial fibrillation; F41.8 Other specified anxiety disorders; E05.00 Thyrotoxicosis with diffuse goiter without thyrotoxic crisis or storm; M81.0 Age-related osteoporosis without current pathological fracture; M19.90 Unspecified osteoarthritis, unspecified site; M06.9 Rheumatoid arthritis, unspecified; Z79.891 Long term (current) use of opiate analgesic; Z79.01 Long term (current) use of anticoagulants; Z79.84 Long term (current) use of oral hypoglycemic drugs; Z98.890 Other specified postprocedural states; Z98.84 Bariatric surgery status; Z82.49 Family history of ischemic heart disease and other diseases of the circulatory system
CPT/HCPCS: 15832; 15879; 36415; 80307; 82948; 86703; 86803; 87340; G0432; J0171; J0690; J1100; J2003; J2405; J2704; J3010; J7120